=== PATIENT | female | born 1960 | race Caucasian/White ===

== ENCOUNTER → 2019-06-06 16:15 | Outpatient (CLI) | payer OTHER, SELFPAY ==
--- NOTE | 2019-06-06 16:48 | MRI_ITS ---
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 IV Contrast dosage and agent: None. 6 series. 139 images COMPARISON: None FINDINGS: BONE: No fracture or abnormal bone marrow signal. ACROMIOCLAVICULAR JOINT: There is no degenerative change. SUBACROMIAL-SUBDELTOID SPACE: A tiny volume of bursal fluid is present that extends anteriorly adjacent to the coracoid GLENOHUMERAL JOINT: Articular cartilage intact. No joint effusion. Trace edema within the anterior interval ROTATOR CUFF: There is some tearing to the superior aspect of the supraspinatus with fairly severe tendinosis to the supraspinatus. This does not appear to be a full-thickness tear. Insertional rim rent tearing is present peripherally within the supraspinatus with some additional undersurface incomplete thickness tearing to the lateral aspect of the supraspinatus tendon. The supraspinatus tendon is thickened and edematous. The supraspinatus and subscapularis are mildly atrophic. Fatty infiltration is present within the supraspinatus and the infraspinatus and to a lesser degree the teres minor LABRUM: Intact, limited evaluation on non-arthrographic exam. BICEPS TENDON: The long head biceps tendon is thickened and edematous as it courses over the joint into the bicipital groove. The long head of the biceps tendon is not identified within the bicipital groove. The intra-articular biceps tendon is normal. OTHER SOFT TISSUES: Unremarkable. MRI/Upper Ext Joint Only(Routine) IMPRESSION: Nonvisualization of the long head biceps tendon within the bicipital groove suggestive of complete tear of the long head biceps tendon. There is some thickened and edematous biceps tendon within the intra-articular portion of the joint, but none are outside of the joint. Tendinosis to the supraspinatus. Undersurface incomplete thickness rim rent tear to the supraspinatus. Tendinosis and incomplete thickness tearing of the subscapularis. at 0548 Reported and signed by: Krzysztof Barfield MD Electronically Signed: Krzysztof Barfield MD at 5:47 EDT Tel , Service support ,
--- NOTE | 2019-06-06 16:49 | MRI_ITS ---
HISTORY: Patient felt a pop on right arm while moving sheet pending. Technique: Sagittal and coronal T1-weighted images, coronal STIR, axial STIR, and axial T1-weighted images were obtained through most of the right humerus. The elbow is not imaged on the axial images. Findings: There is a complete tear to the long head of the biceps tendon. The first solid appearance to the tendon is perhaps 5 cm inferior to the top of the humeral head. The bicipital groove is empty with a small amount of fluid. No significant myositis is perceived. Marrow signal is normal. The humeral head is well-seated within the glenoid fossa. No hematoma is identified. No cellulitis. No adenopathy. MRI/Upper Ext/No Jt/ wo IMPRESSION: Long head biceps tendon complete tear with retraction of about 5 cm below the humeral head. at 0556 Reported and signed by: Krzysztof Barfield MD Electronically Signed: Krzysztof Barfield MD at 5:54 EDT Tel , Service support ,
== END ==
PROVIDERS: Referring Provider Family Medicine; Visit Provider Family Medicine
DX: S43.401A Unspecified sprain of right shoulder joint, initial encounter (principal); S46.211A Strain of muscle, fascia and tendon of other parts of biceps, right arm, initial encounter; X58.XXXA Exposure to other specified factors, initial encounter; Y93.9 Activity, unspecified; Y92.9 Unspecified place or not applicable; Y99.9 Unspecified external cause status
CPT/HCPCS: 73218; 73221

== ENCOUNTER 2019-07-07 13:03 | Emergency (ER) | payer OTHER, MEDICAID, SELFPAY ==
[2019-07-07 13:04] VITALS: BP 132/86; PULSE 90; RESP 14; TEMP 36.7; O2SAT 97; BMI 24.3
--- NOTE | 2019-07-07 13:29 | ED.VISSUMM ---
- ER Visit Summary Date of Service: 07/07/19 Chief Complaint: Left hand laceration History of Present Illness: The patient is a 59 F who presents with a left hand laceration. She was cutting watermelon and cut her hand with a knife. Last tetanus unknown. She cut it on the palm of her hand. Denies any other symptoms. This did occur at work. Physical Examination: Vital signs are reviewed. Left hand exam reveals a 3.75 cm laceration on the thenar eminence on the palm of the left hand. No bleeding at this time. No other symptoms. Test Results: None performed Emergency Department Course and Treatment: The patient's tetanus was updated. 7, 4?0 simple nylon sutures were placed after lidocaine was used to anesthetize the area. She will have these out in 7 days. Treatment Plan: [] Disposition: Discharge Impression: Left hand laceration, 3.5 cm Laceration repaired by ED physician This note was generated with [employer]etov[employer] dictation software. It may contain incorrect words, spelling, and punctuation that were not noted in review of the chart prior to signing ED Disposition - Plan for ED Patient: Referrals: Care Physician,No Primary [Primary Care Provider] -
--- NOTE | 2019-07-07 13:31 | ED.DEP ---
ED Disposition - Plan for ED Patient: Disposition: Home or Assisted Living Instructions: LACERATION, All Referrals: Care Physician,No Primary [Primary Care Provider] -
[2019-07-07] MEDS: Diphth,Pertuss(Acell),Tet Vac 0.5 ML Vial IM (13:34)
[2019-07-07 14:16] VITALS: PULSE 87; RESP 16; O2SAT 97
== END 2019-07-07 14:17 | disposition home or self-care (01) ==
LOC: ED 13:42
PROVIDERS: Emergency Provider Emergency Medicine
DX: S61.412A Laceration without foreign body of left hand, initial encounter (principal); W26.0XXA Contact with knife, initial encounter; Y93.G1 Activity, food preparation and clean up; Y92.9 Unspecified place or not applicable; Y99.9 Unspecified external cause status; Z23 Encounter for immunization; Z79.810 Long term (current) use of selective estrogen receptor modulators (SERMs); Z85.3 Personal history of malignant neoplasm of breast
CPT/HCPCS: 12002; 90471; 90715; 99283

== ENCOUNTER → 2019-09-06 08:24 | Outpatient (CLI) | payer OTHER, SELFPAY ==
[2019-09-06 08:17] VITALS: BMI 24.3
--- NOTE | 2019-09-06 08:25 | RAD_ITS ---
STUDY: X-RAY - RIGHT SHOULDER REASON FOR EXAM: Pain after a fall. TECHNIQUE: 4 view(s) of the shoulder. COMPARISON: None. FINDINGS: Normal glenohumeral articulation. Normal acromioclavicular joint. Normal acromion. Normal humeral head and visualized proximal humerus. The soft tissue structures are unremarkable. There are surgical clips at the lateral aspect of the thorax. Normal visualized pulmonary apex. RAD/Shoulder min 2 Views IMPRESSION: Normal x-ray examination of the right shoulder. Electronically Signed: Franklin Patel MD at 12:52 EST Tel , Service support ,
== END ==
PROVIDERS: Referring Provider Orthopaedic Surgery; Visit Provider Orthopaedic Surgery
DX: M25.511 Pain in right shoulder (principal)
CPT/HCPCS: 73030

== ENCOUNTER 2019-11-09 14:00 | Outpatient (RCR) | payer OTHER, MEDICAID, SELFPAY ==
[2019-09-06 08:17] VITALS: BMI 24.3
--- NOTE | 2019-10-05 16:10 | HP.PTEVAL ---
Patient's Visit Information SHARMILA MASON is a 59 year old F referred to Physical Therapy by Dr. Beatriz De Leon DO with a diagnosis of . Date of Evaluation: 10/05/19 Physical Therapist: Kayden Solis, PT, Cert MDT, OCS - Visit Plan Frequency: 3x /Week Duration: 6WEEKS Plan: PT INTERVENTIONS MODALTIES ESTM/US/CP , GRADED ROM /PROM/AAROM/AROM,MANUAL THERAPY MOBS G-H JOINT GR1-3,GRADED RTC/SCAPULAR STRENGTHENING - Subjective Findings: This 59 y/o female presents to physical therapy with right shoulder pain. 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 Patient went to [facility] and start PT didnt help. Patient was continue work with restrictions. Patient seen DR De Leon 3 weeks ago and finally got MRI showed long head biceps complete tear 5cm ,rim partial tear supraspinatous. Dr De Leon for pain injection . Recommended PT. If Pt fails may need surgery.Patient pain is global with pain desribed with sharp ,pop. Aggraveting factors any activities above 90 degrees ,self hyine ,[place] activities for ADL's and job demands. Pain affects sleeping. Patient has occassional parathesia/tingling. Patient pain affects QOL and function. SOCIAL: single. VOCATION: [employer] - Pain Right Shoulder Pain Intensity (Out of 10): 4 Pain Intensity Range: 10 - Objective POSTURE: mild foward posture. PALAPTION; tender AC ,long head bicep. NEURO: denies parathesia/tingling ,reflexes intact. AROM: supine flexion 110 degrees,abduction 90 degrees ,ER 60 degrees,IR S1-pain all planes. PROM: supine flexion 130 degrees,abdunction in scapation 110 degrees,ER 65 degrees. CAPSULAR RESTRICTION: mod tight all planes. SCAPULAR -HUMERAL : less < 1:1 ratio - Special Tests R Shoulder Supine Impingement Test - RC Tear: Positive R Shoulder Lift Off Test - Subscapular Tear: Negative R Shoulder Drop Sign - IS Test: Negative R Shoulder Empty Can - SS: Positive R Shoulder Belly Press - SupScap: Negative R Shoulder Neer - Impingement: Positive R Shoulder Thapa Anjum - Impingement: Positive R Shoulder Speeds Test - Labrum/Biceps: Positive R Shoulder Shrug Sign - OA/Adhesive Capsulitis: Positive - Goals Goal 1:: Patient to be Independant with HEP. Goal Time Frame: 4-6 Weeks Goal 2:: Decrease shoulder pain by 50% or> to improve function Goal Time Frame: 4-6 Weeks Goal 3:: Patient to increase AROM shoulder flexion/abduction 140 degrees,ER 80 degrees,IR L5 to improve function with ADL'S Goal Time Frame: 4-6 Weeks Goal 4:: Patient increase strength right RTC 4/5 ,deltoid 4-/5 to improve funcrion with ADL'S Goal Time Frame: 4-6 Weeks Goal 5:: Patient to improve quick dash by 10 points or> to improve QOL and susy demands. Goal Time Frame: 4-6 Weeks - Rehabilitation Potential Physical Therapy Diagnosis: This patient right shoulder pain MRI showed long head biceps tesr ,rim superior tear incomplete of suprspinatous with pain ,poor ROM ,decrease strength impairs activies abobe 90 degrees ,job demnads ,housework task Rehabilitation Potential: Good - Anticipated Interventions Patient/Client Instruction: Educate patient on: Condition, Plan of Care For the Purpose of:: To decrease pain, To increase ROM, To improve muscle performance and motor function, To improve ability to perform ADL's, To increase tolerance to activity/condition/position, To improve performance and independence with ADL's, To improve ability of physical actions for home/community/work/leisure, To improve health of tissue, To decrease soft tissue restriction, To increase flexibility/ROM, To improve ability to perform tasks related to life management Therapeutic Exercise to Include: Strength training, Postural training, Flexibilty training, Passive ROM, Active ROM, Scapular Strength/Stabilization Comment: RTC For the Purpose of:: To decrease pain, To increase ROM, To improve nutrient delivery to tissue, To increase oxygenation perfusion, To improve health of tissue, To decrease soft tissue restriction, To increase flexibility/ROM Manual Therapy Techniques to Include: Mobilization Comment: G-H GR 1-3 For the Purpose of:: To decrease pain, To decrease swelling/inflammation, To increase ROM, To improve nutrient delivery to tissue, To increase oxygenation perfusion, To improve health of tissue, To decrease soft tissue restriction TENS: Yes IF ES: Yes Cryotherapy (ice pack, ice massage): Yes Thermo therapy (hot pack): Yes Ultrasound (thermal/non thermal): Yes For the Purpose of:: To decrease pain, To increase ROM, To improve nutrient delivery to tissue, To increase oxygenation perfusion, To improve health of tissue, To decrease soft tissue restriction Thank you for the opportunity to evaluate your patient. For Medicare and Medicare HMO plans, please review the plan of care and approve it. It will need to be FAXED BACK to us at [phone] for Medicare purposes. For Medicare only, by signing this I certify the plan of care. Please let me know if there are questions or concerns regarding this plan of care. Physician Signature: Date:
--- NOTE | 2019-10-12 14:25 | HP.PTEVAL_ITS ---
Patient's Visit Information SHARMILA MASON is a 59 year old F referred to Physical Therapy by Dr. Beatriz De Leon, with a diagnosis of RIGHT SHLDER STRAIN OF MUSCLE TENDON LONG HEAD,STRAIN OF MUSCLE TENDON RTC. Date of Evaluation: 10/05/19 Physical Therapist: Kayden Solis, PT, Cert MDT, OCS - Visit Plan Frequency: 3x /Week Duration: 6WEEKS Plan: PT INTERVENTIONS MODALTIES ESTM/US/CP , GRADED ROM /PROM/AAROM/AROM,MANUAL THERAPY MOBS G-H JOINT GR1-3,GRADED RTC/SCAPULAR STRENGTHENING - Subjective Findings: This 59 y/o female presents to physical therapy with right shoulder pain. 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 Patient went to [facility] [facility] and start PT didnt help. Patient was continue work with restrictions. Patient seen DR De Leon 3 weeks ago and finally got MRI showed long head biceps complete tear 5cm ,rim partial tear supraspinatous. Dr De Leon for pain injection . Recommended PT. If Pt fails may need surgery.Patient pain is global with pain desribed with sharp ,pop. Aggraveting factors any activities above 90 degrees ,self hyine ,[place] activities for ADL's and job demands. Pain affects sleeping. Patient has occassional parathesia/tingling. Patient pain affects QOL and function. SOCIAL: single. VOCATION: [employer] - Pain Right Shoulder Pain Intensity (Out of 10): 4 Pain Intensity Range: 10 - Objective POSTURE: mild foward posture. PALAPTION; tender AC ,long head bicep. NEURO: denies parathesia/tingling ,reflexes intact. AROM: supine flexion 110 degrees,abduction 90 degrees ,ER 60 degrees,IR S1-pain all planes. PROM: supine flexion 130 degrees,abdunction in scapation 110 degrees,ER 65 degrees. CAPSULAR RESTRICTION: mod tight all planes. SCAPULAR -HUMERAL : less < 1:1 ratio - Special Tests R Shoulder Supine Impingement Test - RC Tear: Positive R Shoulder Lift Off Test - Subscapular Tear: Negative R Shoulder Drop Sign - IS Test: Negative R Shoulder Empty Can - SS: Positive R Shoulder Belly Press - SupScap: Negative R Shoulder Neer - Impingement: Positive R Shoulder Thapa Anjum - Impingement: Positive R Shoulder Speeds Test - Labrum/Biceps: Positive R Shoulder Shrug Sign - OA/Adhesive Capsulitis: Positive - Goals Goal 1:: Patient to be Independant with HEP. Goal Time Frame: 4-6 Weeks Goal 2:: Decrease shoulder pain by 50% or> to improve function Goal Time Frame: 4-6 Weeks Goal 3:: Patient to increase AROM shoulder flexion/abduction 140 degrees,ER 80 degrees,IR L5 to improve function with ADL'S Goal Time Frame: 4-6 Weeks Goal 4:: Patient increase strength right RTC 4/5 ,deltoid 4-/5 to improve funcrion with ADL'S Goal Time Frame: 4-6 Weeks Goal 5:: Patient to improve quick dash by 10 points or> to improve QOL and susy demands. Goal Time Frame: 4-6 Weeks - Rehabilitation Potential Physical Therapy Diagnosis: This patient right shoulder pain MRI showed long head biceps tesr ,rim superior tear incomplete of supraspinatous with pain ,poor ROM ,decrease strength impairs activies above 90 degrees ,job demnads ,housework task thus benifit from skilled PT Rehabilitation Potential: Good - Anticipated Interventions Patient/Client Instruction: Educate patient on: Condition, Plan of Care For the Purpose of:: To decrease pain, To increase ROM, To improve muscle performance and motor function, To improve ability to perform ADL's, To increase tolerance to activity/condition/position, To improve performance and independence with ADL's, To improve ability of physical actions for home/community/work/leisure, To improve health of tissue, To decrease soft tissue restriction, To increase flexibility/ROM, To improve ability to perform tasks related to life management Therapeutic Exercise to Include: Strength training, Postural training, Flexibilty training, Passive ROM, Active ROM, Scapular Strength/Stabilization Comment: RTC For the Purpose of:: To decrease pain, To increase ROM, To improve nutrient delivery to tissue, To increase oxygenation perfusion, To improve health of tissue, To decrease soft tissue restriction, To increase flexibility/ROM Manual Therapy Techniques to Include: Mobilization Comment: G-H GR 1-3 For the Purpose of:: To decrease pain, To decrease swelling/inflammation, To increase ROM, To improve nutrient delivery to tissue, To increase oxygenation perfusion, To improve health of tissue, To decrease soft tissue restriction TENS: Yes IF ES: Yes Cryotherapy (ice pack, ice massage): Yes Thermo therapy (hot pack): Yes Ultrasound (thermal/non thermal): Yes For the Purpose of:: To decrease pain, To increase ROM, To improve nutrient delivery to tissue, To increase oxygenation perfusion, To improve health of tissue, To decrease soft tissue restriction Thank you for the opportunity to evaluate your patient. For Medicare and Medicare HMO plans, please review the plan of care and approve it. It will need to be FAXED BACK to us at [phone] for Medicare purposes. For Medicare only, by signing this I certify the plan of care. Please let me know if there are questions or concerns regarding this plan of care. Physician Signature: Date:
--- NOTE | 2019-12-24 13:54 | HP.PTDCNRP_ITS ---
SHARMILA MASON was seen in my office for initial evaluation on 10/05/19. The following Plan of Care was established for this patient: Initial Frequency: 3x /Week Initial Duration: 6WEEKS Patient/Client Instruction: Educate patient on: Condition, Plan of Care For the Purpose of:: To decrease pain, To increase ROM, To improve muscle performance and motor function, To improve ability to perform ADL's, To increase tolerance to activity/condition/position, To improve performance and i ndependence with ADL's, To improve ability of physical actions for home/community/work/leisure, To improve health of tissue, To decrease soft tissue restriction, To increase flexibility/ROM, To improve ability to perform tasks related to life management Therapeutic Exercise to Include: Strength training, Postural training, Flexibilty training, Passive ROM, Active ROM, Scapular Strength/Stabilization For the Purpose of:: To decrease pain, To increase ROM, To improve nutrient delivery to tissue, To increase oxygenation perfusion, To improve health of tissue, To decrease soft tissue restriction, To increase flexibility/ROM Manual Therapy Techniques to Include: Mobilization Comment: G-H GR 1-3 For the Purpose of:: To decrease pain, To decrease swelling/inflammation, To increase ROM, To improve nutrient delivery to tissue, To increase oxygenation perfusion, To improve health of tissue, To decrease soft tissue restriction TENS: Yes IF ES: Yes Cryotherapy (ice pack, ice massage): Yes Thermo therapy (hot pack): Yes Ultrasound (thermal/non thermal): Yes For the Purpose of:: To decrease pain, To increase ROM, To improve nutrient delivery to tissue, To increase oxygenation perfusion, To improve health of tissue, To decrease soft tissue restriction This patient was last seen in our office . Pertinent comments regarding their Physical therapy will appear below: Patient seen for PT for ROM/STENGTH right shoulder but MRI sowed rim tear supraspinatous,long head tear.,thus is d/c At this point I will be discontinuing this patient from physical therapy. I would be happy to see this patient again in the future if found appropriate by the physician. Thank you! Kayden Solis, PT, Cert MDT, OCS
== END 2019-11-09 19:00 | disposition home or self-care (01) ==
LOC: PT 14:00
PROVIDERS: Referring Provider Orthopaedic Surgery; Visit Provider Orthopaedic Surgery
DX: S46.111D Strain of muscle, fascia and tendon of long head of biceps, right arm, subsequent encounter (principal); S46.011D Strain of muscle(s) and tendon(s) of the rotator cuff of right shoulder, subsequent encounter; S43.401D Unspecified sprain of right shoulder joint, subsequent encounter; S46.211D Strain of muscle, fascia and tendon of other parts of biceps, right arm, subsequent encounter
CPT/HCPCS: 97014; 97110; 97161; G0283

== ENCOUNTER 2020-02-25 15:16 | Outpatient (RCR) | payer SELFPAY ==
[2019-10-11 13:02] VITALS: BMI 24.3
[2020-02-25 15:10] VITALS: BMI 24.3
== END 2020-02-25 15:17 | disposition home or self-care (01) ==
LOC: PT 15:16
PROVIDERS: Referring Provider Orthopaedic Surgery; Visit Provider Orthopaedic Surgery
DX: S46.111D Strain of muscle, fascia and tendon of long head of biceps, right arm, subsequent encounter (principal); S46.011D Strain of muscle(s) and tendon(s) of the rotator cuff of right shoulder, subsequent encounter; S43.401D Unspecified sprain of right shoulder joint, subsequent encounter; S46.211D Strain of muscle, fascia and tendon of other parts of biceps, right arm, subsequent encounter

== ENCOUNTER 2020-04-22 15:30 | Outpatient (RCR) | payer OTHER, SELFPAY ==
[2020-02-05 14:05] VITALS: BMI 24.3
--- NOTE | 2020-02-28 17:16 | HP.PTEVAL ---
Patient's Visit Information SHARMILA MASON is a 59 year old F referred to Physical Therapy by MERON Garcia with a diagnosis of STRAIN OF MUSCLE/FASCIA/TENDON OF LONG HEAD ,RIGHT ARM,SRAIN RTC,SPRAIN. Date of Evaluation: 02/28/20 Physical Therapist: Kayden Solis, PT, Cert MDT, OCS - Visit Plan Frequency: 3x /Week Duration: 6 Weeks Plan: PT INTERVENTIONS MANUAL THERAPY G-H ,PROM/AAROM,STRENGTHENING RTC/SCAPULAR ,POSTURAL EX'S,MODLATIES - Subjective This 59 y/o female presents to physical therapys with right shoulder pain. Patient injuried right shoulder at working lifting sheet pain and heard pop Sep. Patient went to [employer] [facility] and start PT didn't help. Patient cont to work with work nrestrictions. Patient eventually seen DR De Leon in [facility] had MRI showed long head biceps complete tear, RIM partial tear of supraspinatous. Did injection went to PT had to stop due to COVID. Then return to recommeneded on 02.25.20 continue PT did injections which helped. Patient MD did recommended surgery. Patient conts with pain ,popping occassional sharp pain ,but recent cortizone is some better. Aggraveting factors [place] activities lifting above 90 degrees ,reaching behind back. Pateint symptoms affects sleeping. Patient occassionally has parathesia/tingling fingers and burning, Patient const be on lightduty. Patient condition affects ability with housework tasks ,ADL's and housework tasks.Patient condition affects QOL and RTW. SOCIAL: single. 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 NEURO: c/o occassional parathesia/tingling,reflexes intact. PALAPTION: tender long head biceps,AC. AROM SHOULDER: flexion 110 degrees ,abduction 110 degrees,ER 80 degrees,IR L1. PROM SHOULDER: flexion 130 degrees,abduction 120 degrees,ER 90. CAPSULAR RESTRICTION: mod tight. MMT: RTC 4-/5 except 3+/5 supraspinatous, deltoid 3+/5 - Special Tests R Shoulder External Rotation Lag Test - RC Tear: Positive R Shoulder Supine Impingement Test - RC Tear: Positive R Shoulder Lift Off Test - Subscapular Tear: Positive R Shoulder Drop Sign - IS Test: Negative R Shoulder Empty Can - SS: Positive R Shoulder Belly Press - SupScap: Negative R Shoulder Neer - Impingement: Positive R Shoulder Thapa Anjum - Impingement: Positive R Shoulder Shrug Sign - OA/Adhesive Capsulitis: Positive - Goals Goal 1:: Independant with HEP. Goal Time Frame: 4-6 Weeks Goal 2:: Decrease shoulder pain by 50% or > to improve function with job demands. Goal Time Frame: 4-6 Weeks Goal 3:: Patient to improve AROM shoulder flexion/degrees 140 degrees to improve ADLS and job demnads for [place] activities Goal Time Frame: 4-6 Weeks Goal 4:: Patient to improve stength shoulder strength by 1/2 grade to improve function with ADL'S and job demands. Goal Time Frame: 4-6 Weeks Goal 5:: Patient to improve quick dash by 5 points or > to improve QOL an jiob demands. Goal Time Frame: 4-6 Weeks - Rehabilitation Potential Physical Therapy Diagnosis: This patient has shoulder pain with long head tear,suprspiantous tear with pain ,decrease ROM ,strength,capsular restriction imapirs ADLS' and housework tasks and job demands with [place] activities. Rehabilitation Potential: Good - Anticipated Interventions Patient/Client Instruction: Educate patient on: Condition, Plan of Care For the Purpose of:: To decrease pain, To increase ROM, To improve muscle performance and motor function, To improve ability to perform ADL's, To increase tolerance to activity/condition/position, To improve performance and independence with ADL's, To improve ability of physical actions for home/community/work/leisure, To improve health of tissue, To decrease soft tissue restriction, To increase flexibility/ROM, To assume or resume ADL's, To improve ability to perform tasks related to life management Therapeutic Exercise to Include: Postural training, Flexibilty training, Passive ROM, Active ROM, Scapular Strength/Stabilization Comment: RTC For the Purpose of:: To decrease pain, To increase ROM, To improve muscle performance and motor function, To improve ability to perform ADL's, To increase tolerance to activity/condition/position, To improve ability of physical actions for home/community/work/leisure, To improve health of tissue, To decrease soft tissue restriction, To increase flexibility/ROM, To reduce risk of recurrence, To improve ability to perform tasks related to life management Manual Therapy Techniques to Include: Mobilization Comment: G-H For the Purpose of:: To decrease pain, To increase ROM, To improve muscle performance and motor function, To improve ability to perform ADL's, To increase tolerance to activity/condition/position, To improve performance and independence with ADL's, To improve health of tissue, To decrease soft tissue restriction, To increase flexibility/ROM TENS: Yes IF ES: Yes Cryotherapy (ice pack, ice massage): Yes Thermo therapy (hot pack): Yes Ultrasound (thermal/non thermal): Yes For the Purpose of:: To decrease pain, To decrease swelling/inflammation, To improve nutrient delivery to tissue, To increase oxygenation perfusion, To improve health of tissue, To decrease soft tissue restriction Thank you for the opportunity to evaluate your patient. For Medicare and Medicare HMO plans, please review the plan of care and approve it. It will need to be FAXED BACK to us at [phone] for Medicare purposes. For Medicare only, by signing this I certify the plan of care. Please let me know if there are questions or concerns regarding this plan of care. Physician Signature: Date:
--- NOTE | 2020-04-22 15:49 | HP.PTDCSUM_ITS ---
It has been my pleasure to treat SHARMILA MASON referred by MERON Garcia, with the diagnosis of STRAIN OF MUSCLE/FASCIA/TENDON OF LONG HEAD ,RIGHT ARM,SRAIN RTC,SPRAIN for a total of 18 visit(s). Discharge Date: 04/22/20 Please see the following information for a summary of their discharge status. Subjective: Doing okay ,able to worl but conts to have pain OH activies Right Shoulder Pain Intensity (Out of 10): 2 % Improvement: 70 Objective/Function: POSTURE: mild foward posture,round shoulders. NEURO: intact. AROM: shoulder flexion 130 degrees,abduction 120 degrees,ER 90 ,IR S1- pain at end range. MMT: infraspinatous 4-/5,subscapularis 4/5,supraspaintous 4- /5 ,deltoid 3+/5 -pain Goal 1:: Independant with HEP. Goal Progress: Goal Met Goal 2:: Decrease shoulder pain by 50% or > to improve function with job demands. Goal Progress: Goal Met Goal 3:: Patient to improve AROM shoulder flexion/degrees 140 degrees to improve ADLS and job demnads for OH activities Goal Progress: Progressing Goal 4:: Patient to improve stength shoulder strength by 1/2 grade to improve function with ADL'S and job demands. Goal Progress: Progressing Goal 5:: Patient to improve quick dash by 5 points or > to improve QOL an jiob demands. Goal Progress: Progressing Plan: D/C Discharge Comments: RTD and HEP If there are questions or concerns regarding this patient's physical therapy, please feel free to call me at [phone]. Thank you for the referral of this patient. Sincerely, Kayden Solis, PT, Cert MDT, OCS
== END 2020-04-22 19:00 | disposition home or self-care (01) ==
LOC: PT 15:30
PROVIDERS: Referring Provider Physician Assistant; Visit Provider Physician Assistant
DX: S46.111D Strain of muscle, fascia and tendon of long head of biceps, right arm, subsequent encounter (principal); S46.011D Strain of muscle(s) and tendon(s) of the rotator cuff of right shoulder, subsequent encounter; S43.401D Unspecified sprain of right shoulder joint, subsequent encounter; S46.211D Strain of muscle, fascia and tendon of other parts of biceps, right arm, subsequent encounter
CPT/HCPCS: 97110; 97162

== ENCOUNTER → 2020-11-11 13:12 | Outpatient (CLI) | payer OTHER, MEDICAID, SELFPAY ==
[2020-05-01 08:48] VITALS: BMI 24.3
--- NOTE | 2020-11-11 13:16 | MRI_ITS ---
STUDY: MRI RIGHT SHOULDER REASON FOR EXAM: Right shoulder pain, known rotator cuff tear. TECHNIQUE: Standardized fat and water weighted pulse sequences were obtained in all 3 orthogonal planes. COMPARISON: Radiographs 09/06/2019, MRI images 06/06/2019. FINDINGS: There is supraspinatus tendinosis and a full-thickness tear of the distal anterior supraspinatus tendon (T2 coronal images 13, 14) measuring approximately 1.8 x 1.2 cm (length x width). Normal infraspinatus tendon. There is a partial tear with attenuation of the subscapularis tendon (T2 axial images 11-13), similar to the prior study. Normal teres minor tendon. There is mild atrophy with mild partial fat replacement of the supraspinatus and infraspinatus muscles (T2 sagittal images 15-18). There is atrophy with partial fat replacement of the subscapularis muscle (T2 axial image 12). Normal teres minor muscle. Normal glenohumeral articulation. There is a small cyst in the superior glenoid. Normal humeral head and visualized proximal humerus. There is a tear with nonvisualization of the intracapsular long biceps tendon as on the prior study. Normal labrum. Normal capsulo- ligamentous complex. Normal acromioclavicular articulation. There is a Type II morphology (curved), with lateral downsloping of the acromion. There is a very small volume of subacromial-subdeltoid bursal fluid. There is thickening of the coracoacromial ligament (T2 sagittal image 12). Normal deltoid muscle. Normal trapezius muscle. MRI/Upper Ext Joint Only(Routine) IMPRESSION: Full-thickness tear and tendinosis of the supraspinatus tendon. Partial tear with attenuation of the subscapularis tendon. Atrophy of the supraspinatus, infraspinatus and subscapularis muscles. 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 Thickening of the coracoacromial ligament. Very small volume of subacromial-subdeltoid bursal fluid. Electronically Signed: Franklin Patel MD at 14:39 EDT Tel , Service support ,
== END ==
PROVIDERS: Referring Provider Orthopaedic Surgery; Visit Provider Orthopaedic Surgery
DX: M75.01 Adhesive capsulitis of right shoulder (principal); S43.401A Unspecified sprain of right shoulder joint, initial encounter; S46.011A Strain of muscle(s) and tendon(s) of the rotator cuff of right shoulder, initial encounter; S46.111A Strain of muscle, fascia and tendon of long head of biceps, right arm, initial encounter; S46.211A Strain of muscle, fascia and tendon of other parts of biceps, right arm, initial encounter; X58.XXXA Exposure to other specified factors, initial encounter; Y93.9 Activity, unspecified; Y92.9 Unspecified place or not applicable; Y99.9 Unspecified external cause status
CPT/HCPCS: 73221

== ENCOUNTER 2020-11-19 13:30 | Outpatient (RCR) | payer OTHER, SELFPAY ==
[2020-05-01 08:48] VITALS: BMI 24.3
--- NOTE | 2020-10-07 16:11 | HP.PTEVAL_ITS ---
Patient's Visit Information SHARMILA MASON is a 60 year old F referred to Physical Therapy by Dr. Beatriz De Leon DO with a diagnosis of R adhesive capsulitis. Date of Evaluation: 10/07/20 Physical Therapist: Mikel Miranda, DPT, OCS, CSCS - Visit Plan Frequency: 3x /Week Duration: 4-6 Weeks Plan: 3x/week for 4-6 weeks for: 1. AAROM/PROM AROM flexiona and abduction R shoulder. 2. manual mobs to R shoulder. 3. strength R RC and scap. 4. TENS with ice if needed. - Subjective R shoulder injury. Had therapy prior. was transferring trays and felt pop in shoulder in September 2018. Had cortisone shot not too long ago(one month) and has been pretty good feeling much better.. 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 R arm still has crunches and gives sometimes. did not approve fix of tears at the time but recently has and needs 2nd MRI first. Needs therapy in the meantime. Wants to get loosened up and improve ROM. ROM is big problem. Pain is up to 6/10 with stretching or overdoing it. shaving armpit is hard. Can tuc shirt in with other hand. Putting hair up is a pain. Sleep is OK. Works at [employer] and is light duty for the last two years as she is able to make things in front of her but not overhead. [place] dn shower and dressing are I but painful. Hobbies: cannot bowl or play softball because of this. Is R handed. Exercises for shoulder,...pulling on band Yellow and blue. - Pain R shoulder Pain Intensity (Out of 10): 0 Pain Intensity Range: 0, 6 - Objective Pt walks I adn trasnfers I. R arm does not swing with gait. Cervical AROM WFL adn without pain. Posture is forward head and gaurded R UE. reflexes bi and tri are 2/3 B. Sensation UE WNL to gross light touch. AROM L UE wNL adn without pain. AROM R UE: flexion 105, abd 90, both limited by pain. ER 80 adn IR L4 pain at end range. albow and wrist aROM WFL. PROM: flexion 135, abduction 120, rotation 85 ext rotation adn 80 IR at 70 abduction. Strenfgth L shoulder 4/5. R shoulder rotation 4- pain ext rotation, 4 pain IR, flexiona dn abduction 3 painful in available ROM. elbow 4 biceps adn triceps with some pain with flexion resisted. Tender to touch supraspinatus adn biceps tendon. + R drop arm test. - ext rotation lag test.- sulcus, + HK and neer. - Goals Goal 1:: 145 AROM flexiona dn abduction to improve function without pain Goal Time Frame: 4-6 Weeks Goal 2:: Pain 0-2/10 at worst and manageable Goal Time Frame: 4-6 Weeks Goal 3:: qucikdash score < 15 Goal Time Frame: 4-6 Weeks Goal 4:: I approp HEP to minimize future problems Goal Time Frame: 4-6 Weeks - Rehabilitation Potential Physical Therapy Diagnosis: R shoulder pain/tear. Rehabilitation Potential: Questionable - Anticipated Interventions Patient/Client Instruction: Educate patient on: Condition, Plan of Care For the Purpose of:: To decrease pain, To increase ROM, To improve muscle performance and motor function, To improve ability of physical actions for home/community/work/leisure Therapeutic Exercise to Include: Strength training, Postural training, Flexibilty training, Passive ROM, Active ROM, Scapular Strength/Stabilization For the Purpose of:: To decrease pain, To increase ROM, To improve muscle performance and motor function, To increase tolerance to activity/condition/position, To improve ability of physical actions for home/community/work/leisure Manual Therapy Techniques to Include: Mobilization, Passive ROM, Soft tissue mobilization For the Purpose of:: To decrease pain, To increase ROM TENS: Yes Cryotherapy (ice pack, ice massage): Yes Thermo therapy (hot pack): Yes For the Purpose of:: To decrease pain, To increase ROM Thank you for the opportunity to evaluate your patient. For Medicare and Medicare HMO plans, please review the plan of care and approve it. It will need to be FAXED BACK to us at [phone] for Medicare purposes. For Medicare only, by signing this I certify the plan of care. Please let me know if there are questions or concerns regarding this plan of care. Physician Signature: Da te:
--- NOTE | 2020-11-12 16:05 | HP.PTREVAL_ITS ---
Dr. Beatriz De Leon, DO, It has been my pleasure to treat SHARMILA MASON over the last 12 visits for R adhesive capsulitis. Please see the progress note below for an update on the physical therapy plan of care! Subjective: Getting better. Much better ROM. Less pain. Pain up to 3/10 on a bad day. Many days where it does not hurt. Sleep is OK for the most part. Activities at home are mostly normal except for vaccuming. Still has to avoid lifting things out of oven at work. 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 Will schedule with doctor. Wants to see doctor but would rather keep going with PT if iti is an option vs have surgery. Using Green adn yellow TB at home 2x10 2x/day Objective/Function: 150 flexion with painful arc, 140 abduction R shoulder, 85 ext rotation, psis IR and 65 degrees at 80 abduction. IR still a little tight but over all ROM improving. Strength is 3 in flexiona nd abduction with a posi tive drop arm test. ext rotation 4 adn IR 4 with slight ext rotation pain. Pt moving better adn can get hand behind head but hard time lowering it functionally and lifting any weight very limtied and careful. Recommended pt back to doctor for recheck of recent MRI and options. She molly corona. Plan Plan: Pt to schedule with doctor's office for recheck adn continue with lst two weeks of PT in the meantime for IR and abduction ROM and elevated strengthening of RC and scap and progression of HEP. Pt to call if therapy not needed or recommended to cotninue by doctor. Goals Goal 1:: 145 AROM flexiona dn abduction to improve function without pain Goal Time Frame: 4-6 Weeks Goal Progress: Progressing Goal 2:: Pain 0-2/10 at worst and manageable Goal Time Frame: 4-6 Weeks Goal Progress: Progressing Goal 3:: qucikdash score < 15 Goal Time Frame: 4-6 Weeks Goal Progress: Progressing Goal 4:: I approp HEP to minimize future problems Goal Time Frame: 4-6 Weeks Goal Progress: Goal Met Goal 5:: Lower arm from OH without hesitation Goal Time Frame: 2-4 Weeks Goal Progress: NEW GOAL Anticipated Interventions Patient/Client Instruction: Educate patient on: Condition, Plan of Care For the Purpose of:: To decrease pain, To increase ROM, To improve muscle performance and motor function, To improve ability of physical actions for home/community/work/leisure Therapeutic Exercise to Include: Strength training, Postural training, Flexibilty training, Passive ROM, Active ROM, Scapular Strength/Stabilization For the Purpose of:: To decrease pain, To increase ROM, To improve muscle performance and motor function, To increase tolerance to activity/c ondition/position, To improve ability of physical actions for home/community/work/leisure Manual Therapy Techniques to Include: Mobilization, Passive ROM, Soft tissue mobilization For the Purpose of:: To decrease pain, To increase ROM TENS: Yes Cryotherapy (ice pack, ice massage): Yes Thermo therapy (hot pack): Yes For the Purpose of:: To decrease pain, To increase ROM Please do not hesitate to contact me at [phone] by phone or Fax: if you have questions or concerns regarding this new plan of care! Sincerely, Mikel Miranda, DPT, OCS, CSCS
== END 2020-11-19 19:00 | disposition home or self-care (01) ==
LOC: PT 13:30
PROVIDERS: Referring Provider Orthopaedic Surgery; Visit Provider Orthopaedic Surgery
DX: M75.01 Adhesive capsulitis of right shoulder (principal)
CPT/HCPCS: 97014; 97110; 97140; 97161; 97530; G0283

== ENCOUNTER 2020-12-10 10:32 | Day surgery (SDC) | payer OTHER, SELFPAY ==
[2020-05-01 08:48] VITALS: BMI 24.3
--- NOTE | 2020-12-09 13:26 | EKG12_ITS ---
Test Reason : PRE OP Blood Pressure : / mmHG Vent. Rate : 094 BPM Atrial Rate : 094 BPM P-R Int : 148 ms QRS Dur : 088 ms QT Int : 358 ms P-R-T Axes : 062 069 055 degrees QTc Int : 447 ms Normal sinus rhythm Septal infarct , age undetermined Abnormal ECG Confirmed by AZUL GUILLAUME, DIANE ([id number]), editorial specialist ORLANDO SOLO ([id number]) on 12/10/2020 11:30:31 AM Referred By: Beatriz De Leon Confirmed By:DIANE LIANG MD
[2020-12-09 14:17] LABS: Hematocrit 38.3 % (37-47); Hemoglobin 12.6 g/dL (12.0-15.0); Mean Corp Hgb Conc 32.9 g/dL (32-36); Mean Corpuscular Hgb 30.4 pg (27.0-32.0); Mean Corpuscular Volume 92.3 fL (81-99); Mean Platelet Vol. 10.5 fl (6.2-12.0); Platelet Count 322 K/mm3 (150-450); RBC Distribution Width CV 14.6 % (11.6-14.6); RBC Distribution Width SD 49.3 fl (35.1-43.9); Red Blood Count 4.15 M/mm3 (4.2-5.4); White Blood Count 11.4 K/mm3 (4.4-11.0)
--- NOTE | 2020-12-10 06:00 | HP_ITS ---
I have re-examined the patient. There are no clinical changes since date of exam. Intake Intake Visit Reasons: RIGHT SHOULDER Allergies No Known Allergies Allergy (Verified 09/04/20 12:56) [facility] Medical History Cancer (Acute) Shoulder pain (Acute) Surgical History History of mastectomy (Acute) Social History (Updated 11/20/20 @ 16:[address] Beatriz De Leon DO) Smoking Status: Current every day smoker HPI RIGHT SHOULDER: Details: Parts of this documentation were recorded by a scribe, this documentation accurately reflects the service provided and the decisions made by me, Dr. Beatriz De Leon, 11/20/20 [id number]. SHARMILA MASON is a 60 year old F here today for [facility] F/U on right shoulder after having MRI of the shoulder. She continues to have pain in her shoulder with overuse or overreaching her right arm. Does feel that her ROM has improved with PT but extreme pain and weakness in lowering arm and doing adls. ROS Musc Reports joint pain, Reports limited joint movement, Reports radiating pain into limb Skin/Breast Reports system reviewed and no additional complaints, except as docu Neuro Yes system reviewed and no additional complaints, except as docu Ortho Exam Right Shoulder Testing: Positive Hawkin's, Neer's, Drop Arm, PROM-External Rotation at side 0- 60, PROM-External Rotation at 90 0-60 and PROM-Forward Elevation 0-180; negative AROM-Forward Elevation 0-180, AROM-External Rotation at 90 0-60 or AROM-External Rotation at side 0-60 SHOULDER: increased rom er/flexn-130, abduxn 120 Assessment & Plan Problems 1. Strain of muscle(s) and tendon(s) of the rotator cuff of right shoulder, initial encounter S46.011A 2. Strain of muscle, fascia and tendon of long head of biceps, right arm, initial encounter S46.111A Plan Personally reviewed patients MRI of the right shoulder patient educated that she has a full thickness RTC tear of the right shoulder, along with a biceps tear. She has failed the conservative treatment of PT and injections so the next treatment option is a RTC repair. Patient educated on the surgical procedure. Reviewed the pre-operative plans with the patient. Risks and benefits of the procedure were fully explained, including but not limited to infection, neurovascular injury, continued pain, arthritis, stiffness, need for further surgery, re-injury, DVT, PE, general risks of anesthesia, and loss of limb or life. The patient understands all the risks and does wish to proceed with written consent for right shoulder arthroscopy RTC repair, subacromial decompression, acromioplasty, surgery as indicated. We will make sure the RTC tear has been approved and the surgery has been approved. Follow up 2 weeks post op or sooner if pain, swelling, numbness or associated symptoms, or concerns develop. All questions answered. Patient in agreement of plan. Coding Level of Care Code Off vis,est,level 4 Diagnoses Strain of muscle(s) and tendon(s) of the rotator cuff of right shoulder, initial encounter S46.011A Strain of muscle, fascia and tendon of long head of biceps, right arm, initial encounter S46.111A COVID (Procedure Consent) Procedure Criteria Procedure Criteria: Yes Elective The surgeon/proceduralist and patient have discussed in detail the risk of exposure to and/or potential harm posed by the COVID-19 virus with having a surgery/procedure at this time versus the risk of? delaying the surgery/procedure. It is not possible to know either the risk of delaying the surgery or procedure or chance of getting an infection with perfect accuracy, but a joint decision was made between the patient and the surgeon/proceduralist ?to proceed at this time with the scheduled surgery/procedure as indicated on the consent form.
[2020-12-10 11:07] VITALS: BP 125/62; PULSE 83; RESP 16; TEMP 36.8; O2SAT 97; BMI 25.6
[2020-12-10] MEDS: Lactated Ringers 1,000 ML 100 ML IV ×2 (11:09→14:00)
[2020-12-10] MEDS: Cefazolin 2 GM in 0.9% Normal Saline 100 ML IV (11:57)
[2020-12-10] MEDS: Epinephrine (1 mg/ml) 1 MG/ML VIAL (12:56)
[2020-12-10] MEDS: Mupirocin Ointment 22gm Tube 1 APPLIC (12:57)
--- NOTE | 2020-12-10 14:15 | DCINST_ITS ---
Discharge Diet: No Restrictions - May remove dressings in 4 days and apply Band- Aids to incision sites, may remove sling to do pendulum exercises only, may get incision wet in shower after 4 days, follow-up in 2 weeks or sooner if other issues arise Discharge Activity: May Not Drive May shower in (days): 1 Ice area for (Minutes): 20 - Every hour while awake. Weight Bearing Status: Weight bearing as tolerated Keep extremity elevated above heart level: Operative Extremity Call your doctor if your incision/area has: Continuous Slow Oozing, Sudden Increased Bleeding, Increased Pain/ Swelling, Increased Redness, Foul Smelling Discharge Call your doctor if you observe: Fever of 101 or Higher, Coldness, Increased Pain, Numbness or Tingling, Change in Color, Calf discomfort Allergies/Adverse Reactions: Allergies No Known Allergies Allergy (Verified 12/09/20 08:15) Medications to take at Discharge Tamoxifen [Nolvadex] 20 mg PO DAILY 08/01/17 ibuprofen 200 mg tablet 200 mg PO Q6H PRN 07/16/19 cholecalciferol (vitamin D3) 1,250 mcg (50,000 unit) capsule 1,250 mcg PO DAILY 02/05/20 magnesium 250 mg tablet 250 mg PO DAILY 02/05/20 nortriptyline 25 mg capsule 25 mg PO QHS 02/05/20 potassium gluconate 550 mg (90 mg) tablet 550 mg PO DAILY 02/05/20 Cephalexin [Keflex] 500 mg PO Q12 12/09/20 Ondansetron [Zofran] 8 mg PO Q8H PRN PRN #20 tab 12/10/20 Oxycodone HCl/Acetaminophen [Percocet 5/325] 1 - 2 tablet PO Q6H PRN PRN 5 Days #28 tablet 12/10/20 Zolpidem Tartrate [Ambien (Generic)] 5 mg PO QHS PRN PRN #14 tab 12/10/20 The following prescriptions were given: Zolpidem Tartrate [Ambien (Generic)] 5 mg PO QHS PRN PRN #14 tab PRN Reason: Insomnia Transmission Status: Received by [facility] Oxycodone HCl/Acetaminophen [Percocet 5/325] 1 - 2 tablet PO Q6H PRN PRN 5 Days #28 tablet PRN Reason: Pain Transmission Status: Received by [facility] Ondansetron [Zofran] 8 mg PO Q8H PRN PRN #20 tab PRN Reason: Nausea Transmission Status: Received by [facility] Primary Care Physician: [facility] Alesha Howe [Primary Care Provider] - Test Results: Test results from this visit will be discussed in further detail at your follow- up appointment, if applicable. Please Follow Up With: Beatriz De Leon, DO - [phone]
--- NOTE | 2020-12-10 14:16 | PCM.OPRPT ---
Report of Operation Date of Procedure: 12/10/20 Pre-Operative Diagnosis: right shoulder rotator cuff tear Post-Operative Diagnosis: same Surgery/Procedure Performed:: right shoulder subscap, supraspinatus repair, sad/acromioplasty senior gis analyst: Sean Long Type of Anesthesia:: General/Regional Anesthesiologist: Ariel Valera Estimated Blood Loss (mL): min Fluids Replaced: 900cc lr Description of Procedure: Preop note Patient is 60-year-old female who sustained a work injury is had continued pain and inability to raise arm overhead and weakness. MRI confirms subscap supraspinatus tear as well as impingement syndrome. Risk benefits and alternatives surgery discussed with patient. Risk include but not limited to blood loss, blood clot, infection, neurovascular, failure procedure, loss of life and loss of limb. Patient is aware like proceed with right shoulder arthroscopy repair as indicated Postoperative operative note Patient seen examined preop holding area. Right shoulder was marked. Patient brought to the operating room and placed supine on the operating table. Signed, anesthesia, antibiotics were administered. The right arm was prepped and draped usual sterile technique after beachchair positioning was maintained we did recheck her blood pressure skilled nursing through the beachchair positioning which was stable throughout. All bony promises well-padded SCDs placed on bilateral lower extremity. We marked out our incisions for portal placement the right with timeout was performed we then insufflated the glenohumeral joint for the posterior aspect after timeout was performed. We had good return. Then created posterior portal with 11 blade. We then began our diagnostic arthroscopy the glenohumeral joint was intact. The subscap was torn as well as a nba of bone that was torn off of the the lesser tuberosity. We gently debrided back the lesser tuberosity at the insertion port of the subscapularis and placed the cannula anterior after creating anterior portal under direct visualization. We then placed 3 luggage tag stitches in the body of the subscap after doing a release and then were able to bring that over to a swivel lock in standard technique. We then noted the there is a anterior full-thickness supraspinatus tear. The moved to the subacromial space. We performed a subacromial decompression and acromioplasty we had to do the acromioplasty and able to have better visualization in order to place our anchors. We then placed 5 5 bio composite anchor after preparing the footprint for the supra spinatus repair. We then were able to place suture tape at the U-shaped at the posterior rim of the U-shaped and this brought this as well as the second suture tied over to the lateral swivel lock we had great footprint coverage at that point. The shoulder was irrigated with copious sterile saline incision was closed with interrupted 4 nylon stitches sterile dressings were applied. Patient taught procedure well no complication transfer recovery room in stable condition Postoperative note Nonweightbearing right upper strain Follow-up in 2 weeks Pharmacy has prescriptions of Pictures in 2 weeks Call with increased pain numbness tingling further issues arise Dragon disclaimer this note was generated with appsplit dictation software. It may contain incorrect words, spelling, and punctuation that were not noted in checking the note before signing.
[2020-12-10 14:18] VITALS: BP 115/62; BP 125/62; PULSE 88; RESP 16; TEMP 36.1; O2SAT 94
[2020-12-10 14:30] VITALS: BP 122/72; BP 125/62; PULSE 80; RESP 16; O2SAT 94
[2020-12-10 14:45] VITALS: BP 116/64; BP 125/62; PULSE 74; RESP 16; O2SAT 95
[2020-12-10 15:00] VITALS: BP 114/62; BP 125/62; PULSE 73; RESP 16; TEMP 36; O2SAT 93
[2020-12-10 16:20] VITALS: BP 116/66; BP 125/62; PULSE 72; RESP 16; TEMP 36.1; O2SAT 95
== END 2020-12-10 16:23 | disposition home or self-care (01) ==
LOC: SDC 10:32 → AC 10:33
PROVIDERS: Anesthesiology; Referring Provider Orthopaedic Surgery; Visit Provider Orthopaedic Surgery
PROC: (CPT 29826; principal; 2020-12-10 11:40)
DX: S46.011A Strain of muscle(s) and tendon(s) of the rotator cuff of right shoulder, initial encounter (principal); S46.111A Strain of muscle, fascia and tendon of long head of biceps, right arm, initial encounter; X58.XXXA Exposure to other specified factors, initial encounter; Y93.9 Activity, unspecified; Y92.89 Other specified places as the place of occurrence of the external cause; Y99.0 Civilian activity done for income or pay; F32.9 Major depressive disorder, single episode, unspecified; F41.9 Anxiety disorder, unspecified; F17.200 Nicotine dependence, unspecified, uncomplicated; Z79.899 Other long term (current) drug therapy; Z78.0 Asymptomatic menopausal state
CPT/HCPCS: 29826; 29827; 64415; 36415; 85027; 93005; J7120; C1713

== ENCOUNTER → 2021-03-30 08:58 | Outpatient (CLI) | payer MEDICAID, SELFPAY ==
[2021-03-05 11:12] VITALS: BMI 24.3
[2021-03-30 09:31] LABS: Absolute Lymphocyte Count 2.95 X10^3/uL (0.83-4.51); Absolute Neutrophil Count 4.7 X10^3/uL (2.0-7.7); Basophil# 0.05 X10^3/uL; Basophil% 0.6 % (0-1); Eosinophil# 0.23 X10^3/uL; Eosinophils% 2.7 % (0-5); Hemoglobin 12.7 g/dL (12.0-15.0); Lymphocyte # 2.95 X10^3/ul (0.83-4.51); Lymphocyte % 34.9 % (19-41); Mean Corp Hgb Conc 32.6 g/dL (32-36); Mean Corpuscular Hgb 30.3 pg (27.0-32.0); Mean Corpuscular Volume 93.1 fL (81-99); Mean Platelet Vol. 10.3 fl (6.2-12.0); Monocyte# 0.53 X10^3/uL; Monocyte% 6.3 % (0-10); NRBC Flagged by Analyzer 0 % (0-5); Neutrophil # 4.67 X10^3/uL (2.7-7.7); Neutrophil % 55.3 % (47-70); Platelet Count 312 K/mm3 (150-450); RBC Distribution Width CV 13.8 % (11.6-14.6); RBC Distribution Width SD 47.5 fl (35.1-43.9); Red Blood Count 4.19 M/mm3 (4.2-5.4); White Blood Count 8.5 K/mm3 (4.4-11.0)
[2021-03-30 10:21] LABS: ALB/GLOB Ratio 0.9 RATIO (0.9-2.4); AST(SGOT) 23 U/L (15-37); Alanine Aminotransfer ALT/SGPT 36 U/L (13-56); Albumin, Serum 3.3 g/dL (3.2-5.0); Alkaline Phosphatase 63 U/L (45-117); Anion Gap 6 (5-15); BUN 19 mg/dL (7-18); BUN/Creat Ratio 22.5 RATIO (10-20); Calcium,Total 8.5 mg/dL (8.5-10.1); Chloride 108 mmol/L (98-107); Cholesterol 217 mg/dL (200); Creatinine, Serum 0.84 mg/dL (0.55-1.02); EST Glomerular Filtration Rate 73 mL/min (>60); Est Glom Filt Rate - Afr Amer 89 mL/min (>60); Globulin 3.7 g/dL (2.2-4.2); Glucose 103 mg/dL (74-106); High Density Lipoprotein 53 mg/dL; Potassium 4.4 mmol/L (3.5-5.1); Sodium Level 140 mmol/L (136-145); Thyroid Stim Hormone (TSH) 2.68 uIU/mL (0.358-3.74); Triglycerides 178 mg/dL; Very Low Density Lipoprotein 36 mg/dL (5-40)
[2021-04-01 21:25] LABS: Vitamin D 1,25-Dihydroxy 38.1 pg/mL (19.9-79.3)
== END ==
DX: F41.9 Anxiety disorder, unspecified (principal); E55.9 Vitamin D deficiency, unspecified
CPT/HCPCS: 36415; 80053; 80061; 82652; 84443; 85025

== ENCOUNTER → 2021-04-13 09:01 | Outpatient (CLI) | payer MEDICAID, SELFPAY ==
[2021-03-05 11:12] VITALS: BMI 24.3
[2021-04-13 10:53] LABS: Vitamin B12 565 pg/mL (211-911)
[2021-04-13 11:27] LABS: Iron 88 ug/dL (50-170); Iron Binding Capacity,Total 272 ug/dL (250-450); PERCENT IRON SATURATION 32.4 % (15.0-55.0)
== END ==
PROVIDERS: PCP Nurse Practitioner Adult Health; Referring Provider Nurse Practitioner Adult Health; Visit Provider Nurse Practitioner Adult Health
DX: D64.9 Anemia, unspecified (principal)
CPT/HCPCS: 36415; 82607; 82746; 83540; 83550

== ENCOUNTER 2021-05-12 05:59 | Day surgery (SDC) | payer MEDICAID, SELFPAY ==
[2021-05-12] VITALS (7 sets, daily range): BP systolic 103–129; BP diastolic 58–72; PULSE 69–88; RESP 16; TEMP 35.9–36.4; O2SAT 98–99; BMI 26.0
--- NOTE | 2021-05-12 06:16 | HP.PCM_ITS ---
HPI - General HPI Narrative SHARMILA MASON, is a 61 F who presents who presents for colonoscopy today. Previous colonoscopy was 2013 and she did have polyps at that time. She denies any bright red blood per rectum or melena. She presents via open access today. 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 She has been vaccinated. [facility] Medical History (Updated 05/12/21 @ 06:[address] Momo Garcia MD) Anxiety Cancer Cancer Depression Gastric reflux History of steroid therapy History of stress test Injury of back Injury of head and neck Leg cramps Shoulder pain Smoker Wears glasses Wears partial dentures Home Medications tamoxifen 20 mg PO DAILY 08/01/17 [History Last Taken 12/10/20 07:30] ibuprofen 200 mg tablet 200 mg PO Q6H PRN 07/16/19 [History Last Taken Unknown] nortriptyline 25 mg capsule 25 mg PO QHS 02/05/20 [History Last Taken Unknown] Allergy/AdvReac Type Severity Reaction Status Date / Time No Known Allergies Allergy Verified 05/11/21 13:19 Surgical History (Updated 05/11/21 @ 13:28 by Julita Jesus) History of mastectomy Hx laparoscopic cholecystectomy Hx of arthroscopy of shoulder Hx of colonoscopy Social History Smoking Status: Current every day smoker tobacco type: cigarettes ROS Constitutional Constitutional: Reports systems reviewed and no addt'l complaints, except as documented Cardiovascular Cardiovascular: Denies chest pain Respiratory/Chest Respiratory/Chest: Denies shortness of breath at rest Gastrointestinal Gastrointestinal: Denies abdominal pain, change in bowel habits, hematochezia or melena Physical Exam Const alert, oriented x3 and no apparent distress General Appearance: cooperative and comfortable Eyes General Eye: normal appearance of both eyes Neck General: normal visual inspection Chest inspection of chest normal Resp Effort and Inspection: able to speak in complete sentences and symmetric chest movement Auscultation: clear to auscultation bilaterally Cardio regular rate and regular rhythm GI soft to palpation, non-tender and non-distended Extremity no calf tenderness Neuro oriented x3 Psych thought process normal Assessment & Plan Assessment/Plan (1) Personal history of colonic polyps: PLAN: 61-year-old female with a personal history of colon polyps and previous colonoscopy approximately 2013. I propose for her a colonoscopy with possible biopsy or polypectomy as indicated. She is aware of the technique, b enefit, risk, alternatives. She has had an opportunity to ask and have questions answered. We will proceed as noted. Momo Garcia M.D., F.A.C.S.
[2021-05-12] MEDS: Lactated Ringers 1,000 ML 100 ML IV (06:31)
--- NOTE | 2021-05-12 07:16 | OP.COLON_ITS ---
Patient Name: Maggie Ragsdale Procedure Date: 05/12/2021 6:56 AM Date of : 1960 Age: 61 Procedure: Colonoscopy Indications: High risk colon cancer surveillance: Personal history of colonic polyps Providers: Momo Garcia MD Medicines: See the Anesthesia note for documentation of the administered medications Patient Profile: Last Colonoscopy: 2013. Complications: No immediate complications. Procedure: Pre-Anesthesia Assessment: - Prior to the procedure, a History and Physical was performed, and patient medications and allergies were reviewed. The patient's tolerance of previous anesthesia was also reviewed. The risks and benefits of the procedure and the sedation options and risks were discussed with the patient. All questions were answered, and informed consent was obtained. Prior Anticoagulants: The patient has taken no previous anticoagulant or antiplatelet agents. ASA Grade Assessment: II - A patient with mild systemic disease. After reviewing the risks and benefits, the patient was deemed in satisfactory condition to undergo the procedure. After I obtained informed consent, the scope was passed under direct vision. Throughout the procedure, the patient's blood pressure, pulse, and oxygen saturations were monitored continuously. The Colonoscope was introduced through the anus and advanced to the cecum, identified by appendiceal orifice and ileocecal valve. The colonoscopy was performed without difficulty. The patient tolerated the procedure well. The quality of the bowel preparation was good. The ileocecal valve and the appendiceal orifice were photographed. Scope In: 7:00:47 AM Scope Withdrawal Time 0 hours 6 minutes 36 seconds Scope Out: 7:12:26 AM Total Procedure Duration Time 0 hours 11 minutes 39 seconds Findings: The digital rectal exam findings include non-thrombosed external hemorrhoids, non-thrombosed internal hemorrhoids and internal hemorrhoids that prolapse with straining, but spontaneously regress to the resting position (Grade II). Multiple diverticula were found in the sigmoid colon. The exam was otherwise without abnormality. Impression: - Non-thrombosed external hemorrhoids, non-thrombosed internal hemorrhoids and internal hemorrhoids that prolapse with straining, but spontaneously regress to the resting position (Grade II) found on digital rectal exam. - Diverticulosis in the sigmoid colon. - The examination was otherwise normal. - No specimens collected. Recommendation: - Discharge patient to home. - Resume previous diet. - Continue present medications. - Repeat colonoscopy in 10 years for screening purposes. Procedure Code(s): --- Professional --- 71543, Colonoscopy, flexible; diagnostic, including collection of specimen(s) by brushing or washing, when performed (separate procedure) Diagnosis Code(s): --- Professional --- Z86.010, Personal history of colonic polyps K64.1, Second degree hemorrhoids K64.4, Residual hemorrhoidal skin tags K57.30, Diverticulosis of large intestine without perforation or abscess without bleeding CPT copyright 2017 [employer]. All rights reserved. The codes documented in this report are preliminary and upon radar engineer review may be revised to meet current compliance requirements. Momo Garcia MD 05/12/2021 7:16:25 AM This report has been signed electronically. Number of Addenda: 0 Note Initiated On: 05/12/2021 6:56 AM
--- NOTE | 2021-05-12 07:17 | OP.CCLET_ITS ---
05/12/2021 Uriel Davis Re : Colonoscopy procedure for Maggie Cutlerr Wiliam This procedure was performed on Wednesday, May 12, 2021. My impressions and recommendations are as follows: Impressions : - Non-thrombosed external hemorrhoids, non-thrombosed internal hemorrhoids and internal hemorrhoids that prolapse with straining, but spontaneously regress to the resting position (Grade II) found on digital rectal exam. - Diverticulosis in the sigmoid colon. - The examination was otherwise normal. - No specimens collected. Recommendations : - Discharge patient to home. - Resume previous diet. - Continue present medications. - Repeat colonoscopy in 10 years for screening purposes. My findings are described in the full procedure note, which is enclosed. If I can be of further assistance, please feel free to contact me at Doctor phone number(s): Work: . Sincerely, Momo Garcia MD 05/12/2021 7:16:25 AM This report has been signed electronically.
== END 2021-05-12 07:53 ==
LOC: EN 06:03 → AC 06:03
PROVIDERS: PCP Nurse Practitioner Adult Health; Referring Provider Nurse Practitioner Adult Health; Visit Provider Surgery
PROC: 0DJD8ZZ Inspection of Lower Intestinal Tract, Via Natural or Artificial Opening Endoscopic (ICD-10-PCS; CPT 45378; principal; 2021-05-12 06:55)
DX: Z12.11 Encounter for screening for malignant neoplasm of colon (principal); K57.30 Diverticulosis of large intestine without perforation or abscess without bleeding; K64.1 Second degree hemorrhoids; K64.4 Residual hemorrhoidal skin tags; K21.9 Gastro-esophageal reflux disease without esophagitis; F32.9 Major depressive disorder, single episode, unspecified; F41.9 Anxiety disorder, unspecified; F17.210 Nicotine dependence, cigarettes, uncomplicated; Z86.010 Personal history of colon polyps
CPT/HCPCS: 45378; J7120

== ENCOUNTER 2021-08-07 09:00 | Outpatient (RCR) | payer OTHER, SELFPAY ==
[2020-12-23 10:53] VITALS: BMI 24.3
--- NOTE | 2021-01-13 08:36 | HP.PTEVAL ---
Patient's Visit Information SHARMILA MASON is a 60 year old F referred to Physical Therapy by Dr. Beatriz De Leon DO with a diagnosis of R Subscap/supraspinatus repair on 12-10-20 and SAD/acromioplasty. Date of Evaluation: 01/13/21 Physical Therapist: TRANG Jernigan - Visit Plan Frequency: 2-3x /Week Duration: 3 Months Plan: 2-3 X / week for 12 visits for PROM per protocol (Flexion to 130 and ER to 45 before able to proceed to Phase II). - Subjective She first injured her shoulder Sep 29 2018. She was at work moving some trays and she just hurt it. Pt works at a [employer]. She still works there but is off. She tried conservative therapy with no success and got an MRI and had surgery to repair subscap and supraspinatus on 12-10-20. She is now in an abd brace and she goes back tuesday and hoping that the brace comes off. She is doing dangling exercises at home. She is R handed. She is not driving. - Pain R shoulder pain Pain Intensity (Out of 10): 4 Pain Intensity Range: 8 - Objective PROM R shoulder: ER 25 degrees, flexion 86 degrees. Instructed pt in sleeping in supine with pillow under scapular and entire shoulder with sling on. Pt is doing pedulums with good form. She She is squeezing the ball at home and does bicep curls. - Goals Goal 1:: I HEP Goal Time Frame: 4-6 Weeks Goal 2:: Increase R shoulder PROM to 130 degrees flexion to be able to go to Phase II Goal Time Frame: 2-4 Weeks Goal 3:: Increase R shoulder to 160 degrees flex and abd and 45 degrees ER by D/C Goal Time Frame: 4-6 Weeks Goal 4:: Increase R shoulder MMT to 4/5 flex, abd and ER 4/5 by DC Goal Time Frame: 4-6 Weeks Goal 5:: Decrease R shoulder pain to 0/10 with ADL's Goal Time Frame: 4-6 Weeks - Rehabilitation Potential Rehabilitation Potential: Good - Anticipated Interventions Patient/Client Instruction: Educate patient on: Condition, Plan of Care For the Purpose of:: To decrease pain, To decrease swelling/inflammation, To increase ROM, To improve nutrient delivery to tissue, To improve muscle performance and motor function, To improve ability to perform ADL's, To increase tolerance to activity/condition/position, To improve performance and independence with ADL's, To decrease level of supervision to perform tasks, To improve ability of physical actions for home/community/work/leisure, To improve health of tissue, To decrease soft tissue restriction, To increase flexibility/ROM Therapeutic Exercise to Include: Strength training, Postural training, Flexibilty training, Neuromotor development, Active ROM, Scapular Strength/Stabilization For the Purpose of:: To decrease pain, To increase ROM, To improve nutrient delivery to tissue, To improve muscle performance and motor function, To improve ability to perform ADL's, To increase tolerance to activity/condition/position, To improve performance and independence with ADL's, To improve health of tissue, To decrease soft tissue restriction, To increase flexibility/ROM Manual Therapy Techniques to Include: Mobilization, Passive ROM For the Purpose of:: To decrease pain, To decrease swelling/inflammation, To increase ROM, To improve nutrient delivery to tissue, To improve muscle performance and motor function, To improve ability to perform ADL's, To increase tolerance to activity/condition/position, To improve health of tissue, To decrease soft tissue restriction, To increase flexibility/ROM Cryotherapy (ice pack, ice massage): Yes For the Purpose of:: To decrease pain, To decrease swelling/inflammation, To improve nutrient delivery to tissue Thank you for the opportunity to evaluate your patient. For Medicare and Medicare HMO plans, please review the plan of care and approve it. It will need to be FAXED BACK to us at [phone] for Medicare purposes. For Medicare only, by signing this I certify the plan of care. Please let me know if there are questions or concerns regarding this plan of care. Physician Signature: Date:
--- NOTE | 2021-04-15 11:39 | HP.PTREVAL ---
Dr. Beatriz De Leon, DO, It has been my pleasure to treat SHARMILA MASON over the last 30 visits for R Subscap/supraspinatus repair on 12-10-20 and SAD/acromioplasty. Please see the progress note below for an update on the physical therapy plan of care! Subjective: She increased her stretching to 2 at home and can feel it and it is getting less painful. Sees Dr hendricks. Pt reports that AAROM IR is not as painful Objective/Function: AROM flexion between 105 and 110 degrees but can only hold it a second. AROM abd 105 degrees. PROM has a softer end feel with elevation and still painful but improving. Plan Plan: CONTINUE to push end range motion and strength. ADD t-band exercises next visit Balance/Gait/Functional tests - Balance/Special Test Scores Quick DASH Score: 34.0900 Goals Goal 1:: I HEP Goal Time Frame: 4-6 Weeks Goal Progress: Goal Met Goal 2:: Increase R shoulder PROM to 130 degrees flexion to be able to go to Phase II Goal Time Frame: 2-4 Weeks Goal Progress: Goal Met Goal 3:: Increase R shoulder to 160 degrees flex and abd and 45 degrees ER by D/C Goal Time Frame: 4-6 Weeks Goal 4:: Increase R shoulder MMT to 4/5 flex, abd and ER 4/5 by DC Goal Time Frame: 4-6 Weeks Goal 5:: Decrease R shoulder pain to 0/10 with ADL's Goal Time Frame: 4-6 Weeks Goal 6:: Increase R shoulder AROM to 165 degrees flex and abd painfree Goal Time Frame: 8-12 Weeks Anticipated Interventions Patient/Client Instruction: Educate patient on: Condition, Plan of Care For the Purpose of:: To decrease pain, To decrease swelling/inflammation, To increase ROM, To improve nutrient delivery to tissue, To improve muscle performance and motor function, To improve ability to perform ADL's, To increase tolerance to activity/condition/position, To improve performance and independence with ADL's, To decrease level of supervision to perform tasks, To improve ability of physical actions for home/community/work/leisure, To improve health of tissue, To decrease soft tissue restriction, To increase flexibility/ROM Therapeutic Exercise to Include: Strength training, Postural training, Flexibilty training, Neuromotor development, Active ROM, Scapular Strength/Stabilization For the Purpose of:: To decrease pain, To increase ROM, To improve nutrient delivery to tissue, To improve muscle performance and motor function, To improve ability to perform ADL's, To increase tolerance to activity/condition/position, To improve performance and independence with ADL's, To improve health of tissue, To decrease soft tissue restriction, To increase flexibility/ROM Manual Therapy Techniques to Include: Mobilization, Passive ROM For the Purpose of:: To decrease pain, To decrease swelling/inflammation, To increase ROM, To improve nutrient delivery to tissue, To improve muscle performance and motor function, To improve ability to perform ADL's, To increase tolerance to activity/condition/position, To improve health of tissue, To decrease soft tissue restriction, To increase flexibility/ROM Cryotherapy (ice pack, ice massage): Yes For the Purpose of:: To decrease pain, To decrease swelling/inflammation, To improve nutrient delivery to tissue Please do not hesitate to contact me at [phone] by phone or if you have questions or concerns regarding this new plan of care! Sincerely, Sandy Nguyen, MPT
--- NOTE | 2021-05-22 10:40 | HP.PTREVAL ---
Dr. Beatriz De Leon, DO, It has been my pleasure to treat SHARMILA MASON over the last 40 visits for R Subscap/supraspinatus repair on 12-10-20 and SAD/acromioplasty. Please see the progress note below for an update on the physical therapy plan of care! Subjective: Pt reports that she is not feeling so great. She got her shots yesterday in her shoulder and was numb. Dr told her to increase the time on the Dynasling and she did it for 40 min last night while she was numb and she is super stiff and painful and swollen today. Dr ordered more PT Objective/Function: See Slightly improved AA elevation but R elbow is still bent while doing it. Pt will change the Dynasplint to keep her elbow straight with stretching. Pt is still painful at end range stretching. Plan Plan: Continue with scapualr work. Continue end range stretching and strengthening and pain control Balance/Gait/Functional tests - Balance/Special Test Scores Quick DASH Score: 40.9075 Goals Goal 1:: I HEP Goal Time Frame: 4-6 Weeks Goal Progress: Goal Met Goal 2:: Increase R shoulder PROM to 130 degrees flexion to be able to go to Phase II Goal Time Frame: 2-4 Weeks Goal Progress: Goal Met Goal 3:: Increase R shoulder to 160 degrees flex and abd and 45 degrees ER by D/C Goal Time Frame: 4-6 Weeks Goal 4:: Increase R shoulder MMT to 4/5 flex, abd and ER 4/5 by DC Goal Time Frame: 4-6 Weeks Goal 5:: Decrease R shoulder pain to 0/10 with ADL's Goal Time Frame: 4-6 Weeks Goal 6:: Increase R shoulder AROM to 165 degrees flex and abd painfree Goal Time Frame: 8-12 Weeks Anticipated Interventions Patient/Client Instruction: Educate patient on: Condition, Plan of Care For the Purpose of:: To decrease pain, To decrease swelling/inflammation, To increase ROM, To improve nutrient delivery to tissue, To improve muscle performance and motor function, To improve ability to perform ADL's, To increase tolerance to activity/condition/position, To improve performance and independence with ADL's, To decrease level of supervision to perform tasks, To improve ability of physical actions for home/community/work/leisure, To improve health of tissue, To decrease soft tissue restriction, To increase flexibility/ROM Therapeutic Exercise to Include: Strength training, Postural training, Flexibilty training, Neuromotor development, Active ROM, Scapular Strength/Stabilization For the Purpose of:: To decrease pain, To increase ROM, To improve nutrient delivery to tissue, To improve muscle performance and motor function, To improve ability to perform ADL's, To increase tolerance to activity/condition/position, To improve performance and independence with ADL's, To improve health of tissue, To decrease soft tissue restriction, To increase flexibility/ROM Manual Therapy Techniques to Include: Mobilization, Passive ROM For the Purpose of:: To decrease pain, To decrease swelling/inflammation, To increase ROM, To improve nutrient delivery to tissue, To improve muscle performance and motor function, To improve ability to perform ADL's, To increase tolerance to activity/condition/position, To improve health of tissue, To decrease soft tissue restriction, To increase flexibility/ROM Cryotherapy (ice pack, ice massage): Yes For the Purpose of:: To decrease pain, To decrease swelling/inflammation, To improve nutrient delivery to tissue Please do not hesitate to contact me at [phone] by phone or if you have questions or concerns regarding this new plan of care! Sincerely, Sandy Nguyen MPT
== END 2021-08-07 19:00 | disposition home or self-care (01) ==
LOC: PT 09:00
PROVIDERS: Referring Provider Orthopaedic Surgery; Visit Provider Orthopaedic Surgery
DX: S46.011D Strain of muscle(s) and tendon(s) of the rotator cuff of right shoulder, subsequent encounter (principal); S43.401D Unspecified sprain of right shoulder joint, subsequent encounter; S46.211D Strain of muscle, fascia and tendon of other parts of biceps, right arm, subsequent encounter
CPT/HCPCS: 97014; 97110; 97140; 97162; 97530; G0283

== ENCOUNTER 2022-01-11 09:57 | Outpatient (RCR) | payer OTHER, MEDICAID, SELFPAY | END 2022-01-11 19:00 | disposition home or self-care (01) | LOC: PT 09:57 | PROVIDERS: PCP Nurse Practitioner Adult Health | DX: M75.01 Adhesive capsulitis of right shoulder (principal) ==

== ENCOUNTER 2022-02-05 11:00 | Outpatient (RCR) | payer OTHER, MEDICAID, SELFPAY ==
--- NOTE | 2021-09-28 11:38 | HP.PTREVAL ---
Nancy Swain, MY-C, It has been my pleasure to treat SHARMILA MASON over the last 66 visits for R Subscap/supraspinatus repair on 12-10-20 and SAD/acromioplasty. Please see the progress note below for an update on the physical therapy plan of care! Subjective: Pt saw Dr on Tuesday and she was impressed at how far we have gotten. The Dr said that the bicep pain is something she will have to deal with off and on.. She requested 6 more weeks of PT and then decide on manipulation. Objective/Function: Pt really felt the stretch on the lat pull down machine. PROM R flex 168 degrees. AROM R shld flex 140 degrees. Improved end range motion and easier to stretch. Procedure seemed to help loosen tissues. Plan Plan: Awaiting on approval for additional visits. Balance/Gait/Functional tests - Balance/Special Test Scores Quick DASH Score: 18.1800 Goals Goal 1:: I HEP Goal Progress: Goal Met Goal 2:: Increase R shoulder PROM to 165 degrees flexion to be able to go to Phase II Goal Progress: Progressing Goal 3:: Increase R shoulder to 175 degrees flex and abd and 45 degrees ER by D/C Goal Progress: Progressing Goal 4:: Increase R shoulder MMT to 4/5 flex, abd and ER 4/5 by DC Goal Progress: Progressing Goal 5:: Decrease R shoulder pain to 0/10 with ADL's Goal Progress: Progressing Anticipated Interventions Please do not hesitate to contact me at [phone] by phone or if you have questions or concerns regarding this new plan of care! Sincerely, Sandy Nguyen, MPT
--- NOTE | 2021-11-10 11:05 | HP.PTREVAL_ITS ---
Nancy Swain, CARE TRANSITION COORDINATOR-C, It has been my pleasure to treat SHARMILA MASON over the last 67 visits for R Subscap/supraspinatus repair on 12-10-20 and SAD/acromioplasty. Please see the progress note below for an update on the physical therapy plan of care! Subjective: Pt reports that she does not have much pain but still has limited mobility. Dr wants her to work on strength because she can not lift over her head. She will not be getting additional C-9 approval for her shoulder Objective/Function: R shoulder strength/ROM. Flexion 11.1/120. ABD 9.4/114. ER 10.7/53. IR 16.5/L4. Bicep 10.4. L shoulder strength/ROM. Flex 16.9/152. ABD 18.1/165. ER 18.5/66. IR 22.3/T8. bicep 21.5 Plan Plan: IR/ER green/ S/L ER 2# and bicep 5# Balance/Gait/Functional tests - Balance/Special Test Scores Quick DASH Score: 18.1800 Goals Goal 1:: I HEP Goal Progress: Goal Met Goal 2:: Increase R shoulder PROM to 165 degrees flexion to be able to go to Phase II Goal Progress: Progressing Goal 3:: Increase R shoulder to 175 degrees flex and abd and 45 degrees ER by D/C Goal Progress: Progressing Goal 4:: Increase R shoulder MMT to 4/5 flex, abd and ER 4/5 by DC Goal Progress: Progressing Goal 5:: Decrease R shoulder pain to 0/10 with ADL's Goal Progress: Progressing Anticipated Interventions Please do not hesitate to contact me at [phone] by phone or if you have questions or concerns regarding this new plan of care! Sincerely, Sandy Nguyen, MPT
--- NOTE | 2021-12-02 11:17 | HP.PTDCSUM_ITS ---
It has been my pleasure to treat SHARMILA MASON referred by JÚNIOR Davis, with the diagnosis of R Subscap/supraspinatus repair on 12-10-20 and SAD/acromioplasty for a total of 75 visit(s). Discharge Date: 12/02/21 Please see the following information for a summary of their discharge status. Subjective: Pt last day is Tuesday and Theresa will see me for the last session according to the end date. No injection scheduled yet. bicep Pain Intensity (Out of 10): 0 R shoulder pain Pain Intensity (Out of 10): 0 % Improvement: 80 Objective/Function: R shoulder MMT: 4-/5 R shoulder flex/abd (within available ROM), 3+/5 ER and 4-/5 IR. Pt felt tighter today at end ranges. Pt admits to not doing as much stretching at home and doing more strengthening. R shoulder PROM: flex 154 and 175 abd tight at end range. R shoulder AROM: abd 135 and flex 140 Goal 1:: I HEP Goal Progress: Goal Met Goal 2:: Increase R shoulder PROM to 165 degrees flexion to be able to go to Phase II Goal Progress: Progressing Goal 3:: Increase R shoulder to 175 degrees flex and abd and 45 degrees ER by D/C Goal Progress: Progressing Goal 4:: Increase R shoulder MMT to 4/5 flex, abd and ER 4/5 by DC Goal Progress: Progressing Goal 5:: Decrease R shoulder pain to 0/10 with ADL's Goal Progress: Goal Met Plan: Continue x1 visits. DIRECTOR OF VENDOR MANAGEMENT to tell PT to DC as all DC info was gathered today Discharge Comments: DC PT to HEP If there are questions or concerns regarding this patient's physical therapy, please feel free to call me at [phone]. Thank you for the referral of this patient. Sincerely, Sandy Nguyen, MPT Balance/Gait/Functional tests - Balance/Special Test Scores Quick DASH Score: 22.7250
--- NOTE | 2022-01-11 10:57 | HP.PTREVAL ---
Nancy Swain, HEAD AND NECK SURGEON-C, It has been my pleasure to treat SHARMILA MASON over the last 77 visits for ADHESIVE CAPSULITIS. Subscap/supraspin repair 12-10-20 and SAD/acromioplasty. Please see the progress note below for an update on the physical therapy plan of care! Subjective: JAN 01 2022 REC'D A CORTISONE SHOT IN RIGHT SHLD BY DR. CATHERINE BAUTISTA. PATIENT REPORTS THE SHOT GAVE AWASOME RESULTS. SHE REPORTS MUCH IMPROVED FREEDOM OF MOTION IN THE RIGHT SHLD NOW. SHE REPORTS IT IS STILL TIGHT BUT IT DOESN'T HURT WITH MVMT MUCH NOW. 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 WORK DOES NOT INVOLVE ANY LIFTING OVER 25 LBS. NO OVER-HEAD LIFTING (SHLD HEIGHT). NO PAIN IN RIGHT SHLD NOW OR SINCE THE SHOT. REPORTS COMPLIANCE WITH HEP. PHYSICIAN RESTRICTIONS: PATIENT DENIES ANY KNOWN RESTRICTIONS BUT HASN'T RETURNED TO HOBBIES OF SOFTBALL AND BOWLING YET. Objective/Function: R shoulder MMT: 4-/5 R shoulder flex/abd (within available ROM), 3+/5 ER and 4-/5 IR. R Field Collector Strength: 45 lbs, L 60 lbs. R shoulder PROM (supine): flex 155 and 164 abd, IR 78 deg, ER 75 deg (IR/ER measured with 90 deg abd). R shoulder AROM: abd 136 and flex 142 Plan Plan: PT 2X'S A WK FOR: R SHLD ROM/STRETCHING AND STRENGTHENING TO HELP MEET SET GOALS WITH FOCUS ON ECCENTRIC STRENGTHENING IN A PAIN FREE ROM. ALSO FOCUS ON SHLD GIRDLE STABILIZATION EX'S. Balance/Gait/Functional tests - Balance/Special Test Scores Quick DASH Score: 20.4525 Goals Goal 1:: I HEP Goal Progress: Goal Met Goal 2:: Increase R shoulder PROM to 165 degrees flexion to be able to go to Phase II Goal Time Frame: flex 154 and 175 abd Goal Progress: Progressing Goal 3:: Increase R shoulder to 175 degrees flex and abd and 45 degrees ER by D/C Goal Time Frame: abd 135 and flex 140 Goal Progress: Progressing Goal 4:: Increase R shoulder MMT to 4/5 flex, abd and ER 4/5 by DC Goal Progress: Progressing Goal 5:: Decrease R shoulder pain to 0/10 with ADL's Goal Progress: Goal Met Anticipated Interventions Please do not hesitate to contact me at [phone] by phone or if you have questions or concerns regarding this new plan of care! Sincerely, Kaya Forrest PT, Cert MDT
== END 2022-02-05 19:00 | disposition home or self-care (01) ==
LOC: PT 11:00
PROVIDERS: PCP Nurse Practitioner Adult Health; Visit Provider Nurse Practitioner Adult Health
DX: S43.401D Unspecified sprain of right shoulder joint, subsequent encounter (principal); X58.XXXD Exposure to other specified factors, subsequent encounter
CPT/HCPCS: 97110; 97140; 97530

== ENCOUNTER → 2022-03-03 | Outpatient (CLI) | payer MEDICAID, SELFPAY ==
--- NOTE | 2022-03-03 09:21 | BD_ITS ---
STUDY: DUAL ENERGY X-RAY ABSORPTIOMETRY / DXA REASON FOR EXAM: Female, 61 years old. [id number]. The patient is postmenopausal. TECHNIQUE: Bone Mineral Density (BMD) measurements of lumbar spine and bilateral hips were obtained. COMPARISON: None. FINDINGS: Lumbar Spine (L1-L4): g/cm2 (1.216) / T-score (1.8) / Z-score (3.3) Findings are suggestive of normal bone density with a low fracture risk. Left Femur Total: g/cm2 (0.936) / T-score (-0.1) / Z-score (0.9) Left Femoral Neck: g/cm2 (0.769) / T-score (-0.7) / Z-score (0.6) Right Femur Total: g/cm2 (0.957) / T-score (0.1) / Z-score (1.1) Right Femoral Neck: g/cm2 (0.797) / T-score (-0.5) / Z-score (0.9) BD/Dexa Bone Density Study IMPRESSION: The patient is considered normal as outlined below according to World [employer] Organization (WHO) criteria with a low fracture risk. Reference Information: The T-score is the number of standard deviations above or below the standard which is normal for young adults at their peak bone mineral density. The World Health Organization (WHO) interprets the T-scores as follows: Above -1 Normal bone density Between -1 and -2.5 Osteopenia Equal to / or below -2.5 Osteoporosis As a practical clinical guideline, osteopenia may be graded as follows: Mild -1 through -1.5 Moderate -1.6 through -2.0 Severe -2.1 through -2.4 The Z-score is the number of standard deviations above or below age-matched controls. A Z-score of less than -1.5 would be considered abnormal. References: 1. NIH Osteoporosis and Related Bone Diseases www osteo.org 2. International Society for Clinical Densitometry www iscd.org 3. National Osteoporosis Foundation www nof.org Electronically Signed: Yonas Pedroza MD at 11:07 EDT ,
== END | disposition home or self-care (01) ==
LOC: OPBD 09:11
PROVIDERS: PCP Nurse Practitioner Adult Health; Referring Provider Nurse Practitioner Adult Health; Visit Provider Nurse Practitioner Adult Health
DX: M85.80 Other specified disorders of bone density and structure, unspecified site (principal); Z78.0 Asymptomatic menopausal state
CPT/HCPCS: 77080

== ENCOUNTER → 2023-11-16 | Outpatient (CLI) | payer BC, SELFPAY ==
--- NOTE | 2023-11-16 11:46 | NEURO ---
NCS and/or EMG Patient Report Ordering Doctor: Vicenta Ragsdale DATE OF SERVICE: 11/16/23 Maggie presents for electrodiagnostic testing of the right upper limb. She reports intermittent numbness and tingling in the right hand. Electrodiagnostic findings: Right median motor nerve demonstrates normal distal latency, amplitude and conduction velocity. Right ulnar motor responses within normal limits, including conduction across the elbow. Sensory responses are normal. Normal median and ulnar F?waves. Needle EMG testing was performed in the right upper limb. All muscles tested showed no evidence of denervation with normal motor unit action potentials. Electrodiagnostic impression: This a normal electrodiagnostic study of the right upper limb. There is no electrodiagnostic evidence for peripheral neuropathy, including carpal tunnel or cubital tunnel syndrome. There is no electrodiagnostic evidence for cervical radiculopathy. Multi Select Codes Neurology Neurology Interp Codes: 48879-57 Musc test done w/n test comp (interp) and 06691-97 Nrv cndj test 7-8 studies (interp)
== END | disposition home or self-care (01) ==
PROVIDERS: PCP Family Medicine; Referring Provider Family Medicine; Visit Provider Family Medicine
DX: R20.0 Anesthesia of skin (principal); F32.9 Major depressive disorder, single episode, unspecified
CPT/HCPCS: 95886; 95910

== ENCOUNTER → 2024-04-23 | Outpatient (CLI) | payer BC, SELFPAY ==
[2024-04-23 10:54] LABS: Absolute Lymphocyte Count 2.94 X10^3/uL (0.83-4.51); Absolute Neutrophil Count 4.5 X10^3/uL (2.0-7.7); Basophil# 0.06 X10^3/uL; Basophil% 0.7 % (0-1); Eosinophil# 0.16 X10^3/uL; Hematocrit 40.4 % (37-47); Hemoglobin 13.3 g/dL (12.0-15.0); Lymphocyte # 2.94 X10^3/ul (0.83-4.51); Lymphocyte % 36.4 % (19-41); Mean Corp Hgb Conc 32.9 g/dL (32-36); Mean Corpuscular Hgb 29.3 pg (27.0-32.0); Mean Platelet Vol. 10.7 fl (6.2-12.0); Monocyte# 0.42 X10^3/uL; Monocyte% 5.2 % (0-10); NRBC Flagged by Analyzer 0 % (0-5); Neutrophil # 4.48 X10^3/uL (2.7-7.7); Neutrophil % 55.5 % (47-70); Platelet Count 336 K/mm3 (150-450); RBC Distribution Width CV 14.1 % (11.6-14.6); RBC Distribution Width SD 45.2 fl (35.1-43.9); Red Blood Count 4.54 M/mm3 (4.2-5.4); White Blood Count 8.1 K/mm3 (4.4-11.0)
[2024-04-23 11:58] LABS: Vitamin D,25 Hydroxy 28.2 ng/mL
[2024-04-23 12:11] LABS: ALB/GLOB Ratio 0.9 RATIO (0.9-2.4); AST(SGOT) 15 U/L (15-37); Alanine Aminotransfer ALT/SGPT 22 U/L (13-56); Albumin, Serum 3.5 g/dL (3.2-5.0); Alkaline Phosphatase 83 U/L (45-117); Anion Gap 6 (5-15); BUN 19 mg/dL (7-18); BUN/Creat Ratio 20.1 RATIO (10-20); Calcium,Total 9.3 mg/dL (8.5-10.1); Chloride 110 mmol/L (98-107); Cholesterol 230 mg/dL (200); Creatinine, Serum 0.94 mg/dL (0.55-1.02); EST Glomerular Filtration Rate 64 mL/min (>60); Est Glom Filt Rate - Afr Amer 77 mL/min (>60); Globulin 3.8 g/dL (2.2-4.2); Glucose 109 mg/dL (74-106); High Density Lipoprotein 52 mg/dL; Potassium 3.9 mmol/L (3.5-5.1); Protein, Total 7.3 g/dL (6.4-8.2); Sodium Level 141 mmol/L (136-145); Triglycerides 116 mg/dL; Very Low Density Lipoprotein 23 mg/dL (5-40)
== END | disposition home or self-care (01) ==
LOC: LAB 10:32
PROVIDERS: PCP Family Medicine; Referring Provider Family Medicine; Visit Provider Family Medicine
DX: G47.00 Insomnia, unspecified (principal); Z13.220 Encounter for screening for lipoid disorders; Z13.1 Encounter for screening for diabetes mellitus; Z83.49 Family history of other endocrine, nutritional and metabolic diseases; N95.1 Menopausal and female climacteric states
CPT/HCPCS: 36415; 80053; 80061; 82306; 84443; 85025

== ENCOUNTER → 2024-10-11 | Outpatient (CLI) | payer BC, SELFPAY ==
[2024-10-11 16:07] LABS: Vitamin D,25 Hydroxy 106.2 ng/mL
[2024-10-11 16:31] LABS: Hemoglobin A1c 5.8 % (3.8-5.6)
== END | disposition home or self-care (01) ==
LOC: MFPLAB 11:28
PROVIDERS: PCP Family Medicine; Referring Provider Family Medicine; Visit Provider Family Medicine
DX: E03.8 Other specified hypothyroidism (principal); R73.09 Other abnormal glucose; E55.9 Vitamin D deficiency, unspecified
CPT/HCPCS: 36415; 82306; 83036; 84443

== ENCOUNTER → 2025-04-11 | Outpatient (CLI) | payer BC, SELFPAY ==
[2025-04-11 16:18] LABS: Vitamin D,25 Hydroxy 35.2 ng/mL (30-100)
--- OUTSIDE RECORDS SUMMARY | 2025-04-11 19:02 | XMS RPT_ITS | CCD ---
Author Organization [facility] Care Team Providers Care Head Resident Name Role Phone Darryl Moreno Unavailable Unavailable PROVIDER, UNKNOWN Unavailable Unavailable Makayla, Pankil Unavailable Unavailable Josh Darryl Unavailable Unavailable PROVIDER, UNKNOWN Unavailable Unavailable Makayla, Pankil Unavailable Unavailable Makayla, Pankil Unavailable Unavailable Jes Pérez Unavailable Unavailable PROVIDER, UNKNOWN Unavailable Unavailable Unavailable Primary Care Provider UnavailMERON Jiménez Attending Unavailab le CHICORELLIMERON Referring Unavailab le CHICORELMERON SHUKLA Attending Unavailab le CHICORELMERON SHUKLA Attending Unavailab le CHICORELMERON SHUKLA Referring Unavailab GUS Thurman Attending Unavailable CHICORELMERON SHUKLA Referring Unavailab GUS Thurman Attending Unavailable MERON DE LEON Referring Unavailab DARRYL Negron Referring Unavailable DARRYL MORENO Attending Unavailable DO Vicenta Ragsdale Primary Care Provider DO Vicenta Ragsdale Referring Provider DO Vicenta Ragsdale Other Provider Dr. Sana Dahl Attending Provider [phone] Vicenta Ragsdale Primary Care Unavailable Vicenta Ragsdale Attending Unavailable Vicenta Ragsdale Referring Unavailable Liban, Chalon Referring Unavailable Liban, Chalon Primary Care Unavailable Liban Chalon Attending Unavailable Liban, Chalon Primary Care Unavailable Liban Chalon Attending Unavailable Liban Chalon Referring Unavailable Sana Dahl Attending Unavailable Vicenta Ragsdale Primary Care Unavailable Vicenta Ragsdale Consulting Unavailable Vicenta Ragsdale Referring Unavailable Medications Current Medications Medication Drug Class(es) Dates Sig (Normalized) Sig (Original) acetaminophen 325 mg oral capsule (3 sources) Start: 05-21-2021 take 1 capsule by mouth once Acetaminophen (Tylenol) 325 mg capsule Active 325 MG PO ONCE May 21, 2021 12:00am meloxicam 15 mg oral tablet (3 sources) Nonsteroidal Anti-inflammatory Drug Start: 07-03-2021 take 1 tablet by mouth once daily Meloxicam (Mobic) 15 mg tablet Active 15 MG PO DAILY 30 July 03, 2021 12:00am nortriptyline 25 mg oral capsule (3 sources) Tricyclic Antidepressant Start: 02-05-2020 take 25 mg by mouth at bedtime Nortriptyline Active 25 MG PO AT BEDTIME February 05, 2020 12:00am tamoxifen 10 mg oral tablet (3 sources) Estrogen Agonist/Antagonist Start: 08-01-2017 take 20 mg by mouth once daily Tamoxifen Active 20 MG PO DAILY August 01, 2017 1:00am Completed/Discontinued Medications Medication Drug Class(es) Dates Sig (Normalized) Sig (Original) acetaminophen 325 mg / oxyCODONE hydrochloride 5 mg oral tablet (3 sources) Opioid Agonist Start: 12-10-2020 End: 12-15-2020 take 1 tablet by mouth every six hours as needed Oxycodone-Acetaminop hen Discontinued 1 - 2 TABLET PO EVERY 6 HOURS NEEDED 28 5 December 10, 2020 December 15, 2020 12:03am cephalexin 500 mg oral capsule (3 sources) Cephalosporin Antibacterial Start: 12-09-2020 End: 12-15-2020 take 500 mg by mouth every twelve hours Cephalexin Discontinued 500 MG PO EVERY 12 HOURS December 09, 2020 12:00am December 15, 2020 10:57am cholecalciferol 1.25 mg oral capsule (3 sources) Vitamin D Start: 02-05-2020 End: 12-15-2020 take 1250 ug by mouth once daily Cholecalciferol (Vitamin D3) Discontinued 1250 MCG PO DAILY February 05, 2020 12:00am December 15, 2020 10:57am ibuprofen 400 mg oral tablet (6 sources) Nonsteroidal Anti-inflammatory Drug Start: 05-21-2021 End: 07-03-2021 take 400 mg by mouth every eight hours Ibuprofen Discontinued 400 MG PO Q8H May 21, 2021 12:00am July 03, 2021 8:37am Start: 07-16-2019 End: 05-21-2021 take 200 mg by mouth every six hours Ibuprofen Discontinued 200 MG PO EVERY 6 HOURS July 16, 2019 1:00am May 21, 2021 9:34am Magnesium (3 sources) Start: 02-05-2020 End: 12-15-2020 take 250 mg by mouth once daily Magnesium Discontinued 250 MG PO DAILY February 05, 2020 1:37pm December 15, 2020 10:57am Start: 02-05-2020 End: 12-15-2020 take 250 mg by mouth once daily Magnesium Discontinued 250 MG PO DAILY February 05, 2020 12:00am December 15, 2020 10:57am methylPREDNISolone acetate 40 mg/ml injectable suspension (1 source) Corticosteroid Start: 05-21-2021 End: 05-21-2021 Depo-Medrol (methylprednisolone acetate) 40 mg/mL suspension for injection Discontinued 40 MG INTRAARTIC ONCE May 21, 2021 9:13am May 21, 2021 11:01am ondansetron 8 mg oral tablet (3 sources) Serotonin-3 Receptor Antagonist Start: 12-10-2020 End: 01-19-2021 take 8 mg by mouth every eight hours as needed Ondansetron Hcl Discontinued 8 MG PO EVERY 8 HOURS NEEDED December 10, 2020 12:00am January 19, 2021 9:09am potassium gluconate 2.35 meq oral tablet (3 sources) Start: 02-05-2020 End: 12-15-2020 take 550 mg by mouth once daily Potassium Gluconate Discontinued 550 MG PO DAILY February 05, 2020 12:00am December 15, 2020 10:57am QUEtiapine 25 mg oral tablet (3 sources) Atypical Antipsychotic QUEtiapine (SEROQUEL ) 25 mg tablet Take 25 mg by mouth. 0 Active Comment on above: Take 25 mg by mouth. 20 ml ropivacaine hydrochloride 5 mg/ml injection (1 source) Amide Local Anesthetic Start: 12-25-2021 End: 12-25-2021 ropivacaine (PF) 5 mg/mL (0.5 %) 3 mL injection (NAROPIN) Start: 12-25-2021 End: 12-25-2021 ropivacaine (PF) 5 mg/mL (0. 5 %) 3 mL injection (NAROPIN) 5 ml sodium chloride 9 mg/ml injection (1 source) Start: 12-25-2021 End: 12-25-2021 NaCl (PF) 0.9% 5 mL injectio n Start: 12-25-2021 End: 12-25-2021 NaCl (PF) 0.9% 5 mL injectio n 1 ml triamcinolone acetonide 40 mg/ml injection (4 sources) Corticosteroid Start: 12-25-2021 End: 12-25-2021 triamcinolone acetonide 40 mg injection (KeNALog 40) Start: 09-04-2020 End: 09-04-2020 Kenalog (triamcinolone aceto nide) 40 mg/mL suspension for injection Discontinued 80 MG INTRAARTIC ONCE 2 September 04, 2020 1:47pm September 04, 2020 3:12pm Start: 02-25-2020 End: 02-25-2020 Kenalog (triamcinolone aceto nide) 40 mg/mL suspension for injection Discontinued 80 MG INTRAARTIC ONCE 2 February 25, 2020 2:18pm February 25, 2020 3:33pm Start: 10-11-2019 End: 10-11-2019 Kenalog (triamcinolone aceto nide) 40 mg/mL suspension for injection Discontinued 80 MG INTRAARTIC ONCE 2 October 11, 2019 1:57pm October 11, 2019 2:16pm zolpidem tartrate 5 mg oral tablet (3 sources) gamma-Aminobutyric Acid-ergic Agonist Start: 12-10-2020 End: 01-19-2021 take 5 mg by mouth at bedtime as needed Zolpidem Discontinued 5 MG PO AT BEDTIME NEEDED December 10, 2020 12:00am January 19, 2021 9:09am Problems Active Problems Problem Classification Problem Date Documented Da te Episodic/Chronic Anxiety disorders (2 sources) Anxiety disorder, unspecified; Translations: [Anxiety disorder, unspecified] Onset: 05-06-2017 Chronic Cancer of breast (4 sources) Malignant neoplasm of unspecified site of left female breast; Translations: [Malignant neoplasm of unspecified site of unspecified female breast] Onset: 05-04-2017 Chronic Cancer of breast (4 sources) Personal history of malignant neoplasm of breast; Translations: [Personal history of malignant neoplasm of breast] Onset: 05-06-2017 Episodic Esophageal disorders (2 sources) Gastro-esophageal reflux disease without esophagitis; Translations: [Gastro-esophageal reflux disease without esophagitis] Onset: 05-06-2017 Chronic Mood disorders (2 sources) Major depressive disorder, single episode, unspecified; Translations: [Major depressive disorder, single episode, unspecified] Onset: 05-06-2017 Open wounds of extremities (3 sources) Laceration of hand without foreign body; Translations: [Laceration without foreign body of left hand, initial encounter] 07-16-2019 Episodic Other aftercare (4 sources) 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) use of selective estrogen receptor modulators (SERMs); Translations: [Lng trm (crnt) use of slctv estrog receptor modulators] Onset: 05-06-2017 Episodic Other aftercare (3 sources) Follow-up status; Translations: [Encounter for other orthopedic aftercare] 01-19-2021 Episodic Other and unspecified benign neoplasm (3 sources) History of polyp of colon; Translations: [Personal history of colonic polyps] 05-12-2021 Episodic Other and unspecified benign neoplasm (2 sources) Benign neoplasm of connective and other soft tissue, unspecified; Translations: [Benign neoplasm of connective and other soft tissue, unspecified] Onset: 08-17-2022 Episodic Other connective tissue disease (2 sources) Adhesive capsulitis of right shoulder; Translations: [Adhesive capsulitis of right shoulder] Episodic Other female genital disorders (2 sources) Abnormal uterine and vaginal bleeding, unspecified; Translations: [Abnormal uterine and vaginal bleeding, unspecified] Onset: 05-06-2017 Chronic Ovarian cyst (4 sources) Unspecified ovarian cyst, right side; Translations: [Unspecified ovarian cyst, left side] Onset: 08-17-2022 Episodic Sprains and strains (12 sources) Strain of long head of biceps; Translations: [Strain of muscle, fascia and tendon of long head of biceps, right arm, initial encounter] 05-21-2021 Episodic Substance-related disorders (2 sources) Nicotine dependence, cigarettes, uncomplicated; Translations: [Nicotine dependence, cigarettes, uncomplicated] Onset: 05-06-2017 Chronic Thyroid disorders (1 source) Other specified hypothyroidism; Translations: [Other specified hypothyroidism] Onset: 10-24-2024 Chronic Unclassified (2 sources) Unspecified ovarian cyst, right side; Translations: [Unspecified ovarian cyst, right side] Onset: 05-06-2017 Unclassified (2 sources) Unspecified ovarian cyst, left side; Translations: [Unspecified ovarian cyst, left side] Onset: 05-06-2017 Past or Other Problems Problem Classification Problem Date Documented Date Episodic/Chronic Complication of device; implant or graft (2 sources) Hemorrhage due to genitourinary prosthetic devices, implants and grafts, initial encounter; Translations: [Hemorrhage due to genitourinary prosth dev/grft, init] Onset: 05-04-2017 Episodic Contraceptive and procreative management (2 sources) Encounter for removal of intrauterine contraceptive device; Translations: [Encounter for removal of intrauterine contraceptive device] Onset: 05-06-2017 Episodic Medical examination/evaluatio n (2 sources) Encounter for other preprocedural examination; Translations: [Encounter for other preprocedural examination] Onset: 05-04-2017 Episodic Other female genital disorders (2 sources) Polyp of corpus uteri; Translations: [Polyp of corpus uteri] Onset: 05-06-2017 Episodic Other nervous system disorders (2 sources) Anesthesia of skin; Translations: [Anesthesia of skin] Onset: 11-23-2023 Episodic Residual codes; unclassified (1 source) Insomnia, unspecified; Translations: [Insomnia, unspecified] Onset: 05-02-2024 Episodic Unclassified (10 sources) Family history of arthritis; Translations: [Family history of malignant neoplasm of digestive organs] Onset: 05-06-2017 Episodic Results Test Name Value Interpretation Reference Range Facility Hemoglobin A1con 10-11-2024 HbA1c (Bld) [Mass fraction] 5.8 % High 3.8-5.6 [facility] Comment on above: Order Comment: Order Date: 10/11/24 Order Info: [id number] - A1C Result Comment: Norm al < 5.7 % Prediabetic 5.7 - 6.4 % Diabetic >or= 6.5 % Please note range changes. Performed By: #### L 506.1000, L501.9985, L501.9520 #### [facility], [address] Thyroid Stim Hormone (TSH)on 10-11-2024 TSH 1.600 uIU/mL Normal 0.358-3.740 [facility] Comment on above: Order Comment: Order Date: 10/11/24 Order Info: [id number] - TSH Performed By: #### L 506.1000, L501.9985, L501.9520 #### [facility] [address] [place], [address] Vitamin D,25 Hydroxyon 10-11 Vitamin D 25-OH 106.2 ng/mL Normal [facility] Comment on above: Order Comment: Order Date: 10/11/24 Order Info: [id number] - VITD25 Result Comment: Mariana min D 25(OH) Status Range Deficiency <20 ng/mL (50nmol/L) Insufficiency 20 - 30 ng/mL (50 - 75 nmol/L) Sufficiency 30 - 100 ng/mL (75 - 250 nmol/L) Toxicity >100 ng/mL (>250 nmol/L) Evidence suggests that patients undergoing fluorescein dye angiography can retain small amounts of fluorescein in the body for up to 48 to 72 hours post-treatment. In the cases of patients with renal insufficiency, retention could be much longer. Samples containing fluorescein can produce falsely elevated values when tested with the Advia Centaur Vitamin D assay. With fluorescein interference, observed Vitamin D values can be as high as >150 ng/mL (>375 nmol/L). Samples should be resubmitted post fluorescein clearance to ensure there is no interference with Vitamin D test results. Performed By: #### L 506.1000, L501.9985, L501.9520 #### [facility] [address] [place], [address] CBC W/Diff, Automatedon 03-30 Absolute Lymph 2.94 X10 3/uL Normal 0.83-4.51 [facility] Comment on above: Order Comment: Order Date: 04/11/24 Order Info: [id number] - CBCD Performed By: #### L 500.4050, L501.9520, L500.4100, L506.1000, L100.0100 #### [facility] [address] [place], [address] Absolute Neut 4.5 X10 3/uL Normal 2.0-7.7 [facility] Comment on above: Order Comment: Order Date: 04/11/24 Order Info: [id number] - CBCD Performed By: #### L 500.4050, L501.9520, L500.4100, L506.1000, L100.0100 #### [facility] [address] [place], [address] Basophils/100 WBC (Bld) 0.7 % Normal 0-1 [facility] Comment on above: Order Comment: Order Date: 04/11/24 Order Info: [id number] - CBCD Performed By: #### L 500.4050, L501.9520, L500.4100, L506.1000, L100.0100 #### [facility] [address] [place], [address] Eosinophils/100 WBC (Bld) 2.0 % Normal 0-5 [facility] Comment on above: Order Comment: Order Date: 04/11/24 Order Info: [id number] - CBCD Performed By: #### L 500.4050, L501.9520, L500.4100, L506.1000, L100.0100 #### [facility] [address] [place], [address] Erythrocyte distribution width (RBC) [Ratio] 14.1 % Normal 11.6-14.6 [facility] Comment on above: Order Comment: Order Date: 04/11/24 Order Info: [id number] - CBCD Performed By: #### L 500.4050, L501.9520, L500.4100, L506.1000, L100.0100 #### [facility] [address] [place], [address] Hematocrit (Bld) [Volume fraction] 40.4 % Normal 37-47 [facility] Comment on above: Order Comment: Order Date: 04/11/24 Order Info: [id number] - CBCD Performed By: #### L 500.4050, L501.9520, L500.4100, L506.1000, L100.0100 #### [facility] [address] [place], [address] Hemoglobin (Bld) [Mass/Vol] 13.3 g/dL Normal 12.0-15.0 [facility] Comment on above: Order Comment: Order Date: 04/11/24 Order Info: [id number] - CBCD Performed By: #### L 500.4050, L501.9520, L500.4100, L506.1000, L100.0100 #### [facility] [address] [place], [address] IG% 0.200 Normal 0.0-0.9 [facility] Comment on above: Order Comment: Order Date: 04/11/24 Order Info: [id number] - CBCD Result Comment: IG% - Immature Granulocytes (promyelocytes, myelocytes and metamyelocytes) > 1% indicates that a LEFT SHIFT is Present. Performed By: #### L 500.4050, L501.9520, L500.4100, L506.1000, L100.0100 #### [facility] [address] [place], [address] Lymphocytes/100 WBC (Bld) 36.4 % Normal 19-41 [facility] Comment on above: Order Comment: Order Date: 04/11/24 Order Info: [id number] - CBCD Performed By: #### L 500.4050, L501.9520, L500.4100, L506.1000, L100.0100 #### [facility] [address] [place], [address] MCH (RBC) [Entitic mass] 29.3 pg Normal 27.0-32.0 [facility] Comment on above: Order Comment: Order Date: 04/11/24 Order Info: [id number] - CBCD Performed By: #### L 500.4050, L501.9520, L500.4100, L506.1000, L100.0100 #### [facility] [address] [place], [address] MCHC (RBC) [Mass/Vol] 32.9 g/dL Normal 32-36 [facility] Comment on above: Order Comment: Order Date: 04/11/24 Order Info: [id number] - CBCD Performed By: #### L 500.4050, L501.9520, L500.4100, L506.1000, L100.0100 #### [facility] [address] [place], [address] MCV (RBC) [Entitic vol] 89.0 fL Normal 81-99 [facility] Comment on above: Order Comment: Order Date: 04/11/24 Order Info: 018- - CBCD Performed By: #### L 500.4050, L501.9520, L500.4100, L506.1000, L100.0100 #### [facility] [address] [place], [address] Monocytes/100 WBC (Bld) 5.2 % Normal 0-10 [facility] Comment on above: Order Comment: Order Date: 04/11/24 Order Info: 018- - CBCD Performed By: #### L 500.4050, L501.9520, L500.4100, L506.1000, L100.0100 #### [facility] [address] [place], [address] Neutrophils/100 WBC (Bld) 55.5 % Normal 47-70 [facility] Comment on above: Order Comment: Order Date: 04/11/24 Order Info: [id number] - CBCD Performed By: #### L 500.4050, L501.9520, L500.4100, L506.1000, L100.0100 #### [facility] [address] [place], [address] Nucleated RBC (Bld) [#/Vol] 0 10*3/uL Normal 0-5 [facility] Comment on above: Order Comment: Order Date: 04/11/24 Order Info: [id number] - CBCD Performed By: #### L 500.4050, L501.9520, L500.4100, L506.1000, L100.0100 #### [facility] [address] [place], [address] Platelet mean volume (Bld) [Entitic vol] 10.7 fL Normal 6.2-12.0 [facility] Comment on above: Order Comment: Order Date: 04/11/24 Order Info: 0184- - CBCD Performed By: #### L 500.4050, L501.9520, L500.4100, L506.1000, L100.0100 #### [facility] [address] [place], [address] Platelets (Bld) [#/Vol] 336 10*3/uL Normal 150-450 [facility] Comment on above: Order Comment: Order Date: 04/11/24 Order Info: 0184- - CBCD Performed By: #### L 500.4050, L501.9520, L500.4100, L506.1000, L100.0100 #### [facility] [address] [place], [address] RBC (Bld) [#/Vol] 4.54 10*6/uL Normal 4.2-5.4 [facility] Comment on above: Order Comment: Order Date: 04/11/24 Order Info: [id number] - CBCD Performed By: #### L 500.4050, L501.9520, L500.4100, L506.1000, L100.0100 #### [facility] [address] [place], [address] RDW SD 45.2 fl High 35.1-43.9 [facility] Comment on above: Order Comment: Order Date: 04/11/24 Order Info: [id number] - CBCD Performed By: #### L 500.4050, L501.9520, L500.4100, L506.1000, L100.0100 #### [facility] [address] [place], [address] WBC (Bld) [#/Vol] 8.1 10*3/uL Normal 4.4-11.0 [facility] Comment on above: Order Comment: Order Date: 04/11/24 Order Info: [id number] - CBCD Performed By: #### L 500.4050, L501.9520, L500.4100, L506.1000, L100.0100 #### [facility] [address] [place], [address] Comprehensive Metabolic Prof [facility] 04-23-2024 Albumin [Mass/Vol] 3.5 g/dL Normal 3.2-5.0 [facility] Comment on above: Order Comment: Order Date: 04/11/24 Order Info: [id number] - CMP Order Info: [id number] - LIPID Order Info: [id number] - TSH Performed By: #### L 500.4050, L501.9520, L500.4100, L506.1000, L100.0100 #### [facility] [address] [place], [address] Albumin/Globulin [Mass ratio] 0.9 {ratio} Normal 0.9-2.4 [facility] Comment on above: Order Comment: Order Date: 04/11/24 Order Info: [id number] - CMP Order Info: [id number] - LIPID Order Info: [id number] - TSH Performed By: #### L 500.4050, L501.9520, L500.4100, L506.1000, L100.0100 #### [facility] [address] [place], [address] ALK P 83 U/L Normal 45-117 [facility] Comment on above: Order Comment: Order Date: 04/11/24 Order Info: 0786- - CMP Order Info: [id number] - LIPID Order Info: 3 - TSH Performed By: #### L 500.4050, L501.9520, L500.4100, L506.1000, L100.0100 #### [facility] [address] [place], [address] ALT [Catalytic activity/Vol] 22 U/L Normal 13-56 [facility] Comment on above: Order Comment: Order Date: 04/11/24 Order Info: 785- - CMP Order Info: [id number] - LIPID Order Info: 3 - TSH Performed By: #### L 500.4050, L501.9520, L500.4100, L506.1000, L100.0100 #### [facility] [address] [place], [address] AST [Catalytic activity/Vol] 15 U/L Normal 15-37 [facility] Comment on above: Order Comment: Order Date: 04/11/24 Order Info: 0786 - CMP Order Info: [id number] - LIPID Order Info: [id number] - TSH Performed By: #### L 500.4050, L501.9520, L500.4100, L506.1000, L100.0100 #### [facility] [address] [place], [address] Bilirubin [Mass/Vol] 1.00 mg/dL Normal 0.20-1.00 [facility] Comment on above: Order Comment: Order Date: 04/11/24 Order Info: [id number] - CMP Order Info: [id number] - LIPID Order Info: 3 - TSH Result Comment: For patients on eltrombopag therapy, use of Dimension Rives TBIL is not recommended. Performed By: #### L 500.4050, L501.9520, L500.4100, L506.1000, L100.0100 #### [facility] [address] [place], [address] BUN/CRE 20.1 RATIO High 10-20 [facility] Comment on above: Order Comment: Order Date: 04/11/24 Order Info: 0786- - CMP Order Info: [id number] - LIPID Order Info: [id number] - TSH Performed By: #### L 500.4050, L501.9520, L500.4100, L506.1000, L100.0100 #### [facility] [address] [place], [address] CA,Total 9.3 mg/dL Normal 8.5-10.1 [facility] Comment on above: Order Comment: Order Date: 04/11/24 Order Info: [id number] - CMP Order Info: [id number] - LIPID Order Info: [id number] - TSH Performed By: #### L 500.4050, L501.9520, L500.4100, L506.1000, L100.0100 #### [facility] [address] [place], [address] Chloride [Moles/Vol] 110 mmol/L High 98-107 [facility] Comment on above: Order Comment: Order Date: 04/11/24 Order Info: 0786 - CMP Order Info: [id number] - LIPID Order Info: [id number] - TSH Performed By: #### L 500.4050, L501.9520, L500.4100, L506.1000, L100.0100 #### [facility] [address] [place], [address] CO2 [Moles/Vol] 25.0 mmol/L Normal 21.0-32.0 [facility] Comment on above: Order Comment: Order Date: 04/11/24 Order Info: 0786- - CMP Order Info: [id number] - LIPID Order Info: [id number] - TSH Performed By: #### L 500.4050, L501.9520, L500.4100, L506.1000, L100.0100 #### [facility] [address] [place], [address] Creatinine [Mass/Vol] 0.94 mg/dL Normal 0.55-1.02 [facility] Comment on above: Order Comment: Order Date: 04/11/24 Order Info: [id number] - CMP Order Info: [id number] - LIPID Order Info: [id number] - TSH Result Comment: The validity of the calculated GFR GFRAA in patients over 70 years has not been determined. Clinical correlation is essential. Performed By: #### L 500.4050, L501.9520, L500.4100, L506.1000, L100.0100 #### [facility] [address] [place], [address] EST GFR - AA 77 mL/min Normal >60 [facility] Comment on above: Order Comment: Order Date: 04/11/24 Order Info: [id number] - CMP Order Info: [id number] - LIPID Order Info: 3 - TSH Result Comment: Afri can Swiss GFR Calc Performed By: #### L 500.4050, L501.9520, L500.4100, L506.1000, L100.0100 #### [facility] [address] [place], [address] GAP 6 Normal 5-15 [facility] Comment on above: Order Comment: Order Date: 04/11/24 Order Info: 07- - CMP Order Info: [id number] - LIPID Order Info: 3 - TSH Performed By: #### L 500.4050, L501.9520, L500.4100, L506.1000, L100.0100 #### [facility] [address] [place], [address] GFR/1.73 sq M.predicted among non-blacks MDRD (S/P/Bld) [Vol rate/Area] 64 mL/min/{1.73_m2} Normal >60 [facility] Comment on above: Order Comment: Order Date: 04/11/24 Order Info: 785- - CMP Order Info: [id number] - LIPID Order Info: [id number] - TSH Result Comment: Non- GFR Calc Performed By: #### L 500.4050, L501.9520, L500.4100, L506.1000, L100.0100 #### [facility] [address] [place], [address] Globulin (S) [Mass/Vol] 3.8 g/dL Normal 2.2-4.2 [facility] Comment on above: Order Comment: Order Date: 04/11/24 Order Info: 07 - CMP Order Info: - LIPID Order Info: [id number] - TSH Performed By: #### L 500.4050, L501.9520, L500.4100, L506.1000, L100.0100 #### [facility] [address] [place], [address] Glucose [Mass/Vol] 109 mg/dL High 74-106 [facility] Comment on above: Order Comment: Order Date: 04/11/24 Order Info: 07 - CMP Order Info: - LIPID Order Info: [id number] - TSH Result Comment: Fast ing Glucose result from 100 to 125 mg/dL suggests IMPAIRED HOMEOSTASIS per A.D.A. criteria. Performed By: #### L 500.4050, L501.9520, L500.4100, L506.1000, L100.0100 #### [facility] [address] [place], [address] Potassium [Moles/Vol] 3.9 mmol/L Normal 3.5-5.1 [facility] Comment on above: Order Comment: Order Date: 04/11/24 Order Info: 0786 - CMP Order Info: [id number] - LIPID Order Info: 3015-10 - TSH Performed By: #### L 500.4050, L501.9520, L500.4100, L506.1000, L100.0100 #### [facility] [address] [place], [address] Sodium [Moles/Vol] 141 mmol/L Normal 136-145 [facility] Comment on above: Order Comment: Order Date: 04/11/24 Order Info: 07 - CMP Order Info: [id number] - LIPID Order Info: [id number] - TSH Performed By: #### L 500.4050, L501.9520, L500.4100, L506.1000, L100.0100 #### [facility] [address] [place], [address] T PROT 7.3 g/dL Normal 6.4-8.2 [facility] Comment on above: Order Comment: Order Date: 04/11/24 Order Info: 07 - CMP Order Info: [id number] - LIPID Order Info: [id number] - TSH Performed By: #### L 500.4050, L501.9520, L500.4100, L506.1000, L100.0100 #### [facility] [address] [place], [address] Urea nitrogen [Mass/Vol] 19 mg/dL High 7-18 [facility] Comment on above: Order Comment: Order Date: 04/11/24 Order Info: 0786 - CMP Order Info: [id number] - LIPID Order Info: [id number] - TSH Performed By: #### L 500.4050, L501.9520, L500.4100, L506.1000, L100.0100 #### [facility] [address] [place], [address] Lipid Profileon 04-23-2024 Cholesterol [Mass/Vol] 230 mg/dL High 200 [facility] Comment on above: Order Comment: Order Date: 04/11/24 Order Info: 0786- - CMP Order Info: [id number] - LIPID Order Info: 3015-10 - TSH Result Comment: <200 mg/dL Desirable 200-240 mg/dL Borderline >240 mg/dL High Risk Performed By: #### L 500.4050, L501.9520, L500.4100, L506.1000, L100.0100 #### [facility] [address] [place], [address] Cholesterol in HDL [Mass/Vol] 52 mg/dL Normal [facility] Comment on above: Order Comment: Order Date: 04/11/24 Order Info: 0786-1 - CMP Order Info: [id number] - LIPID Order Info: [id number] - TSH Result Comment: The drugs N-Acetylcysteine and Metamizole may falsely depress this assay. Reference Range HDL <40 mg/dL Low HDL Cholesterol HDL >or= 60 mg/dL High HDL Cholesterol Performed By: #### L 500.4050, L501.9520, L500.4100, L506.1000, L100.0100 #### [facility] [address] [place], [address] Cholesterol in LDL [Mass/Vol] 155 mg/dL High 0-130 [facility] Comment on above: Order Comment: Order Date: 04/11/24 Order Info: 0786- - CMP Order Info: [id number] - LIPID Order Info: 3016-3 - TSH Performed By: #### L 500.4050, L501.9520, L500.4100, L506.1000, L100.0100 #### [facility] [address] [place], [address] Cholesterol in VLDL [Mass/Vol] 23 mg/dL Normal 5-40 [facility] Comment on above: Order Comment: Order Date: 04/11/24 Order Info: 0786-1 - CMP Order Info: [id number] - LIPID Order Info: 3016-3 - TSH Performed By: #### L 500.4050, L501.9520, L500.4100, L506.1000, L100.0100 #### [facility] [address] [place], [address] Triglyceride [Mass/Vol] 116 mg/dL Normal [facility] Comment on above: Order Comment: Order Date: 08/14/24 Order Info: 0786-1 - CMP Order Info: [id number] - LIPID Order Info: [id number] - TSH Result Comment: The drugs N-Acetylcysteine and Metamizole may falsely depress this assay. Serum Triglycerides Reference Interval Normal <150 mg/dL Borderline high 150 - 199 mg/dL High 200 - 499 mg/dL Very High > or = 500 mg/dL Performed By: #### L 500.4050, L501.9520, L500.4100, L506.1000, L100.0100 #### [facility] [address] [place], [address] Thyroid Stim Hormone (TSH)on 04-23-2024 TSH 4.510 uIU/mL High 0.358-3.740 [facility] Comment on above: Order Comment: Order Date: 04/11/24 Order Info: 0786-1 - CMP Order Info: [id number] - LIPID Order Info: [id number] - TSH Performed By: #### L 500.4050, L501.9520, L500.4100, L506.1000, L100.0100 #### [facility] [address] [place], [place], [address] Vitamin D,25 Hydroxyon 04-23 Vitamin D 25-OH 28.2 ng/mL Normal [facility] Comment on above: Order Comment: Order Date: 04/11/24 Order Info: [id number] - VITD25 Result Comment: Mariana min D 25(OH) Status Range Deficiency <20 ng/mL (50nmol/L) Insufficiency 20 - 30 ng/mL (50 - 75 nmol/L) Sufficiency 30 - 100 ng/mL (75 - 250 nmol/L) Toxicity >100 ng/mL (>250 nmol/L) Performed By: #### L 500.4050, L501.9520, L500.4100, L506.1000, L100.0100 #### [facility] [address] [place], [address] NCS and/or EMG Patienton NCS and/or EMG Patient [facility] Pulmonary Services/Neurology [address] [place] [address] MR#: [id number] Acct: [id number] Name: MAGGIE MASON Rep #: [id number] : 1960 63 From: Sana Dahl MD Referring Dr: Vicenta Ragsdale DO Status: REG C LI Location: N Date: 11/16/23 Sex: F C NCS and/or EMG Patient Report Ordering Doctor: Vicenta Ragsdale DATE OF SERVICE: 11/16/23 Maggie presents for electrodiagnostic testing of the right upper limb. She reports intermittent numbness and tingling in the right hand. Electrodiagnostic findings: Right median motor nerve demonstrates normal distal latency, amplitude and conduction velocity. Right ulnar motor responses within normal limits, including conduction across the elbow. Sensory responses are normal. Normal median and ulnar F???waves. Needle EMG testing was performed in the right upper limb. All muscles tested showed no evidence of denervation with normal motor unit action potentials. Electrodiagnostic impression: This a normal electrodiagnostic study of the right upper limb. There is no electrodiagnostic evidence for peripheral neuropathy, including carpal tunnel or cubital tunnel syndrome. There is no electrodiagnostic evidence for cervical radiculopathy. Multi Select Codes Neurology Neurology Interp Codes: 80413-44 Musc test done w/n test comp (interp) and 22078-63 Nrv cndj test 7- 8 studies (interp) 11/16/23 1148 Date Sana Dahl MD CC: Dr. Sana Dahl MD; Vicenta Ragsdale DO Date Dictated: 11/16/23 1146 Date Transcribed: 11/16/23 114 Relay Shop Tester: KUNAL Signed Normal [facility] Office Visiton 08-17-2022 Follow-up visit [id number] Maggie Mason Tristan 1960 F Date Provider Department Center 08/17/2022 [id number] MORENO [facility] OB MG OB Offi Family History Problem Relation Age of Onset Stroke Father Arthritis Mother Cancer Sister Comments: colon cancer Family Status - Relation Status Age at Father Mother Sister Alive Level of Service:68471 SD OFFICE/OUTPATIENT ESTABLISHED LOW [facility] 20-29 MIN Reason for Visit and Comments: Follow-up [739696] Normal [facility] Progress Noteon 08-17-2022 Progress Note Pt here for F/U US. Denies any VB or abdominal pain. On US all fibroids have remianed stable. The bilateral ovarian cysts have also remained stable. BP 122/61 Pulse 66 Past Medical History: Diagnosis Date Anxiety Cancer (CMS/HCC) breast Depression GERD (gastroesophageal reflux disease) Past Surgical History: Procedure Laterality Date CHOLECYSTECTOMY COLONOSCOPY 2020 repeat in 5 yrs. had a couple polyps COLONOSCOPY HYSTEROSCOPY 05/06/2017 with D&C, polypectomy with myosure HYSTEROSCOPY 05/06/2017 with polypectomy MASTECTOMY Bilateral ROTATOR CUFF REPAIR Right 2020 Assessment: Diagnosis Plan 1. Bilateral ovarian cysts 2. Fibroids Plan: Repeat US in 6mo w/ annual exam. As above. MDM 2 stable chronic problems US reviewed and scheduled. Minimal risk. Normal 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 US PELVIS TRANSVAGINALon US PELVIS TRANSVAGINAL Gynecological Report (Signed Final 08/17/2022 01:41 pm) PATIENT INFO: ID #: [id number] : [birth year] (62 yrs)(F) Name: MAGGIE MASON Visit Date: 08/17/2022 10:38 am PERFORMED BY: Attending: Kayden Elam MD Performed By: Romelia Crockett RDMS Referred By: DARRYL MORENO MD Location[place] [facility] [place] [facility] [place] SERVICE(S) PROVIDED: University Relations Director Transvaginal [id number] INDICATIONS: Bilateral ovarian cysts - N83.201, N83.202 Fibroids - D21.9 History of breast cancer - Z85.3 Use of tamoxifen (Nolvadex) - Z79.810 TECHNIQUE/SCAN QUALITY: Technique: Transvaginal Approach HISTORY: Age: 62 Menses: Postmenopausal HX COMMENTS: Non latex cover used. UTERUS: Uterus: Present Position: Anteverted Size (cm) L: 5.81 W: 4.02 H: 2.9 Description: The uterine echogenicity appears mottled. There are two masses within the uterine parenchyma, most likely fibroids. MYOMAS: Site L(cm) W(cm) D(cm) Location Anterior left body 1.51 1.58 1.38 Subserosal (hyperechoic) Anterior right body 0.86 0.9 0.72 Subserosal (hypoechoic Blood Flow RI PI Comments On 01/19/22, these masses measured 1.6 x 1.7 x 1.5 cm (left) and 0.8 x 0.9 x 0.7 cm (right). Blood Flow RI PI Comments ENDOMETRIUM: Endometrium: Visualized Thickness(mm): 4.74 Comment: The endometrium appears heterogeneous. CERVIX: Normal appearance CUL-DE-SAC: No free fluid was visualized RIGHT OVARY: Status: Visualized Size (cm) L: 2.31 W: 1.82 H: 1.53 Vol (ml): 3.37 Comment: The right ovary again has a 1.35 x 1.29 x 1.32 cm solid-appearing, heterogeneous mass on the anterior pole. This measured 1.35 x 1.4 x 1.35 cm 01/19/22. LEFT OVARY: Status: Visualized Size (cm) L: 3.37 W: 1.97 H: 2.17 Vol (ml): 7.54 Comment: The left ovary again has a 2.65 x 1.82 x 1.91 cm simple appearing cyst on the inferior pole. This measured 1.95 x 1.86 x 2.01 cm 01/19/22. Kayden Elam MD Electronically Signed Final Report 08/17/2022 01:41 pm IMPRESSION: Probable uterine fibroids, as noted above. These have remained stable in size since 01/19/22. The endometrium measures 4.74 mm and appears heterogeneous. The right ovary again has a 1.35 x 1.29 x 1.32 cm solid- appearing, heterogeneous mass on the anterior pole. This measured 1.35 x 1.4 x 1.35 cm 01/19/22. This was also present on U/S exams from 2018 and 2017. This may represent a dermoid vs. an endometrioma vs. an ovarian neoplasm. The left ovary again has a 2.65 x 1.82 x 1.91 cm simple appearing cyst on the inferior pole. This measured 1.95 x 1.86 x 2.01 cm 01/19/22. Clinical correlation is recommended. The patient is scheduled to see Dr. Moreno following ultrasound. *Ultrasound cannot detect all pelvic or FURNITURE SPRAYER abnormalities and normal findings cannot guarantee the absence of a problem.* Normal [facility] SURGICAL PATHOLOGYon CASE REPORT Normal [facility] Comment on above: Order Comment: Speci men Type: TISSUE SPECIMENOrdering Facility: [facility] Address: [address], [place] [address] Result Comment: [facility] Pathology Report Case: [id number] Authorizing Provider: Karson Garcia Collected: 08/03/2022 09:55 AM Ordering Location: [facility] Received: 08/03/2022 07:11 PM Pathologist: Taylor Johnson MD Specimen: SKIN SHAVE BIOPSY, R anterior lower leg Performed By: #### S ####[facility] LABCLIA [id number] [place] [address] [place] CLINICAL HISTORY r/o SCC (or BCC) vs. chronic (>2 mos) inflammed crusted SK. Normal [facility] Comment on above: Order Comment: Speci men Type: TISSUE SPECIMENOrdering Facility: [facility] Address: [address] [place] [address] Performed By: #### S ####[facility] LABCLIA [id number] [address] [place] FINAL DIAGNOSIS Normal [facility] Comment on above: Order Comment: Speci men Type: TISSUE SPECIMENOrdering Facility: [facility] Address: [address] [place] [address] Result Comment: A. S kin, right anterior lower leg, shave biopsy: -Inflamed seborrheic keratosis. WFB/CK 08/04/2022 Performed By: #### S ####[facility] LABCLIA [id number] [address] [place] FINAL PERFORMING LAB Normal [facility] Comment on above: Order Comment: Speci men Type: TISSUE SPECIMENOrdering Facility: [facility] Address: [address] [place] [address] Result Comment: Diag nostic interpretation performed at [facility], [address] [place] [address] CLIA# [id number] Accounting Auditor: Roman Leal M.D. Performed By: #### S ####[facility] LABCLIA [id number] [place] [address] [place] GROSS DESCRIPTION Normal [facility] Comment on above: Order Comment: Speci men Type: TISSUE SPECIMENOrdering Facility: [facility] Address: [address] [place] [address], [place] [id number] Result Comment: A. S KIN SHAVE BIOPSY Received in formalin is a 1.2 x 1.0 x 0.3 cm shave of skin. On the skin surface there is a 1.2 cm wallace-brown and slightly elevated area. The specimen is bisected. Totally submitted in one cassette. SS August 03, 2022 11:23 PM Gross examination performed at [facility], [address] [place] [address] Performed By: #### S ####[facility] LABCLIA [id number] [address] [id number] CNOVon 01-01-2022 CNOV Office Visit (DANIEL ) ----- MAGGIE MASON ([id number]) 1960 F Date Time Provider Department 01/01/22 12:15 PM MERON DE LEON During your visit today, we recorded the following information about you: Meron De Leon DO 01/01/2022 12:43 PM Signed Follow Up Visit Chief Complaint Maggie Mason is a 61 year old female who presents today for follow up office visit. Patient presents with: Right Shoulder - Follow Up, Pain History of Present Illness PAIN EVALUATION 01/01/2022 1214 Pain Level: 1 Pain Location: Shoulder-Right Description: Aching;Dull;Sore Duration Amount of Time: ? ongoing Frequency: Intermittent Intervention/Comfort measure: Reposition;Relaxation;Med ication cortisone injection HPI: Maggie Mason is a 61 year old female for a follow up visit right shoulder pain. Had a recent shoulder injection by Dr. Heck which is giving a lot of relief and helping with ROM. Got approved more PT visits to help with ROM as well. Pain history is noted as above. Denies numbness, tingling, fever, chills or other constitutional symptoms. Is there any overall improvement in your condition? Yes, injection and PT Any new injury, since being seen last: No REVIEW OF SYMPTOMS: Patient did not have, and does not currently have, any weight loss, malaise, fever, chills, headache, chest pain, chest pressure, palpitations, cough, shortness of breath, orthopnea, paroxsymal nocturnal dyspnea, nausea, vomiting, diarrhea, constipation, melena, hematochezia, urinary difficulties, prolonged bleeding, easily bruising, heat or cold intolerance, new onset joint pain or swelling, new onset extremity weakness or numbness, new onset auditory or visual disturbances, lightheadedness, dizziness, partial loss of consciousness or full loss of consciousness. Current Outpatient Medications Medication Sig - QUEtiapine (SEROQUEL) 25 mg tablet Take 25 mg by mouth. No current facility-administered medications for this visit. Physical Exam Vitals: There were no vitals taken for this visit. Psych: Pleasant, good affect and mood General Appearance: Well appearing, alert, in no acute distress, well-hydrated, well nourished.. Skin: Skin color, texture, turgor normal, no suspicious rashes or lesions. Peripheral Pulses: Normal. Neurologic: Gait normal. Reflexes normal and symmetric. Sensation grossly intact.. Lymph Nodes: No cervical lymphadenopathy, No supraclavicular lymphadenopathy, No axillary lymphadenopathy. and No inguinal lymphadenopathy.. Respiratory: No recent pulmonary infection, hemoptysis, chronic cough, or shortness of breath at rest Rheumatologic: Joint deformities: Right shoulder pain Right Shoulder Exam Tenderness The patient is experiencing no tenderness. Range of Motion Active abduction: 130 abnormal Passive abduction: abnormal Extension: normal External rotation: abnormal Forward flexion: normal Internal rotation 0 degrees: normal Internal rotation 90 degrees: normal Muscle Strength Abduction: 5/5 Internal rotation: 5/5 External rotation: 5/5 Supraspinatus: 5/5 Subscapularis: 5/5 Biceps: 5/5 Tests Apprehension: negative Thapa test: negative Cross arm: negative Impingement: negative Other Erythema: absent Sensation: normal Pulse: present Comments: Med,uln,rad nerves intact Better ROM Left Shoulder Exam Left shoulder exam is normal. Tenderness The patient is experiencing no tenderness. Range of Motion Active abduction: normal Passive abduction: normal Extension: normal External rotation: normal Forward flexion: normal Internal rotation 0 degrees: normal Internal rotation 90 degrees: normal Muscle Strength Abduction: 5/5 Internal rotation: 5/5 External rotation: 5/5 Supraspinatus: 5/5 Subscapularis: 5/5 Biceps: 5/5 Tests Apprehension: negative Thapa test: negative Cross arm: negative Impingement: negative Other Erythema: absent Sensation: normal Pulse: present Assessment and Plan Radiographs: No imaging to review. Impression: Encounter Diagnosis ICD-10-CM 1. Adhesive capsulitis of right shoulder M75.01 starting PT Tuesday Happy with injection right shoulder Much improved, will follow peripherally If has issues, will call- Take otc nsaids on as needed basis Today, in detail, through a thorough evaluation, we discussed possible etiologies of pain and our plans for further diagnostic and therapeutic interventions. We discussed strategies for decreasing pain and improving strength, stability and motion. Patient's questions were answered in detailed. Patient verbalizes understanding and agrees with the treatment plan as discussed. Referring Provider: SELF [200] Allergies As of Date: 01/01/2022 (No Known Allergies) Date Reviewed: 01/01/2022 Reviewed by: Meron De Leon DO - Fully Assess (more content not included)... Normal [facility] CNOVon 12-25-2021 CNOV Office Visit (SPHTB) ----- MAGGIE MASON ([id number]) 1960 F Date Time Provider Department 12/25/21 8:15 AM GUS HECK SPHTB During your visit today, we recorded the following information about you: Gus Heck DO 12/25/2021 10:47 AM Signed [facility] DEPARTMENT OF ORTHOPAEDIC SURGERY OFFICE VISIT DOCUMENTATION NOTE ASSESSMENT AND PLAN DIAGNOSIS: (M75.01) Adhesive capsulitis of right shoulder (primary encounter diagnosis) Today, in detail, through a thorough evaluation, we discussed possible etiologies of pain and our plans for further diagnostic and therapeutic interventions. We discussed strategies for decreasing pain and improving strength, stability and motion. Patient's questions were answered in detailed. Patient verbalizes understanding and agrees with the treatment plan as discussed. - Pt had been doing well with PT but she no longer has coverage for this. I would greatly recommend that we continue with physical therapy to avoid any relapse in progress made, further pain, limiting motion and loss of ability to return back to full duty. - Had significant improvement with previous injection 4 months ago. Risks, benefits, and indications for corticosteroid injections discussed. Injection performed as detailed in the procedure note below. A C9 has been submitted to request approval for physical therapy. The patient has voiced understanding that the [place] of [employer]' Compensation ([employer]) will need to first make judgement upon, and approve, these additional treatments, before we can proceed with scheduling. The patient has voiced understanding of this process and they have been given contact information on how to inquire about the progress of this claim. Haydee Morrison MD Primary Care Sports Medicine Fellow PGY-4 In addition to the comprehensive evaluation as outlined above and as a separate element to the visit today, we have made the determination to proceed with an injection to aid in the treatment of the patient's condition. We discussed risks, benefits, alternatives and expected outcomes of this injection in detail and the patient agreed to proceed. The procedure was performed as detailed below. Large Joint Arthro/Inj: R glenohumeral Informed Consent Consent Obtained: Verbal [place] Protocol A moment to CARE was completed. SIGN IN Personnel directly involved with the procedure wore the appropriate PPE. Patient/Surrogate Stated/Verified: Patient name, Date of , Relevant allergies and Intended procedure TIME OUT Intended patient and procedure match the source document(s). Consent documented and matches the intended procedure. Relevant labs, photos, and/or imaging studies have been reviewed. Correct side/site marked and visible. Medications required for procedure verified. 12/25/2021 10:47 AM The procedure site was prepped in the usual sterile fashion. Site: R glenohumeral Details:Musculoskeletal ultrasound was utilized to successfully localize placement of the injection needle at the appropriate site. Ultrasound images demonstrating local vasculature and demonstrating injection of solution were saved. Medications: 40 mg triamcinolone acetonide 40 mg/mL; 5 mL NaCl (PF) 0.9% Anesthetics: 3 mL ropivacaine (PF) 5 mg/mL (0.5 %) Outcome: Tolerated well, no immediate complications Post-injection instructions were reviewed with the patient and the patient voiced understanding of these instructions. SIGN OUT Post-procedure follow-up management communicated and Plan of Care Visit completed when applicable TEACHING PHYSICIAN STATEMENT: I personally saw and evaluated the patient today. I personally obtained the caldwell and critical portions of the history and physical exam. I reviewed the resident's documentation and discussed the patient with the resident. I agree with the resident's medical decision-making as documented. Gus Heck D.O. Sports Medicine and Medical Orthopaedics [facility] CHIEF COMPLAINT / REASON FOR VISIT Maggie Mason is a 61 year old female who presents today for a follow-up evaluation of following complaint: Patient presents with: Right Shoulder - Established Patient HISTORY OF PRESENT ILLNESS (HPI) PAIN EVALUATION 12/25/2021 0809 Pain Level: 1 Pain Location: Shoulder-Right Description: Aching Duration Amount of Time: 4 Duration Units: Months Frequency: Intermittent Intervention/Comfort measure: Medication Has there been any overall improvement in your condition? Yes, Any new injury, since being seen last? No Pt was last seen by Dr. Heck 08/19 with CSI to with significant improvement for ~8-10 weeks. She had been going to PT with improvement until 3 weeks ago when it was denied. Does have improvement in motion. Review of S (more content not included)... Normal [facility] CNPNon 12-07-2021 CNPN Telephone (DANIEL) ----- MAGGIE MASON ([id number]) 1960 F Date Time Provider Department 12/07/21 GUS HECK During your visit today, we recorded the following information about you: [place] [facility] 12/07/2021 3:19 PM Signed Please contact the patient to schedule a [facility] approved ultrasound guided right shoulder injection with Dr. Heck as a Dr. De Leon referral. Dariana Pearce [facility] [place] 12/07/2021 4:22 PM Signed Asking for an appointment for injection , the referral expires 01/13/2022 Clarissa Montoya 12/10/2021 9:37 AM Signed Patient is scheduled on 12/25, with Dr. Heck. Allergies As of Date: 12/07/2021 (No Known Allergies) Date Reviewed: 11/06/2021 Reviewed by: Meron De Leon DO - Fully Assessed Reason for Visit: Appointment [186] Prescriptions as of 12/10/2021 - QUEtiapine (SEROQUEL) 25 mg tablet Take 25 mg by mouth. Problem List As Of Date: 12/07/2021 (None) Encounter Status:Closed by CLARISSA MONTOYA on 12/10/21 [facility] 11-06-2021 CNMICHELLE Office Visit (ORMDNA ) ----- MAGGIE MASON ([id number]) 1960 F Date Time Provider Department 11/06/21 11:30 AM MERON DE LEON During your visit today, we recorded the following information about you: Meron De Leon DO 11/07/2021 7:53 AM Signed Follow Up Visit Chief Complaint Maggie Mason is a 61 year old female who presents today for follow up office visit. Patient presents with: Right Shoulder - Follow Up, Pain History of Present Illness PAIN EVALUATION 11/06/2021 1206 Pain Level: 5 Pain Location: Shoulder-Right Description: Aching;Dull;Stiffness Duration Amount of Time: ? Ongoing Frequency: Continuous Intervention/Comfort measure: Reposition;Relaxation;Col d;Medication;Other: See comment physical therapy HPI: Maggie Mason is a 61 year old female for a follow up visit right shoulder pain. Just got approved last week for physical therapy, injection now has no effect on shoulder. Pain history is noted as above. Denies numbness, tingling, fever, chills or other constitutional symptoms. Has not done PT as not approved. Is there any overall improvement in your condition? No Any new injury, since being seen last: No REVIEW OF SYMPTOMS: Patient did not have, and does not currently have, any weight loss, malaise, fever, chills, headache, chest pain, chest pressure, palpitations, cough, shortness of breath, orthopnea, paroxsymal nocturnal dyspnea, nausea, vomiting, diarrhea, constipation, melena, hematochezia, urinary difficulties, prolonged bleeding, easily bruising, heat or cold intolerance, new onset joint pain or swelling, new onset extremity weakness or numbness, new onset auditory or visual disturbances, lightheadedness, dizziness, partial loss of consciousness or full loss of consciousness. Current Outpatient Medications Medication Sig - QUEtiapine (SEROQUEL) 25 mg tablet Take 25 mg by mouth. No current facility-administered medications for this visit. Physical Exam Vitals: There were no vitals taken for this visit. Psych: Pleasant, good affect and mood General Appearance: Well appearing, alert, in no acute distress, well-hydrated, well nourished.. Skin: Skin color, texture, turgor normal, no suspicious rashes or lesions. Peripheral Pulses: Normal. Neurologic: Gait normal. Reflexes normal and symmetric. Sensation grossly intact.. Lymph Nodes: No cervical lymphadenopathy, No supraclavicular lymphadenopathy, No axillary lymphadenopathy. and No inguinal lymphadenopathy.. Respiratory: No recent pulmonary infection, hemoptysis, chronic cough, or shortness of breath at rest Rheumatologic: Joint deformities: Right shoulder pain Right Shoulder Exam Tenderness The patient is experiencing tenderness in the biceps tendon. Range of Motion Active abduction: abnormal Passive abduction: abnormal Extension: abnormal External rotation: abnormal Forward flexion: abnormal Internal rotation 0 degrees: normal Internal rotation 90 degrees: abnormal Muscle Strength Abduction: 5/5 Internal rotation: 5/5 External rotation: 4/5 Supraspinatus: 4/5 Subscapularis: 4/5 Biceps: 5/5 Tests Apprehension: negative Thapa test: negative Cross arm: negative Impingement: negative Other Erythema: absent Sensation: normal Pulse: present Comments: Intact but weakness in er/ir Left Shoulder Exam Left shoulder exam is normal. Tenderness The patient is experiencing no tenderness. Range of Motion Active abduction: normal Passive abduction: normal Extension: normal External rotation: normal Forward flexion: normal Internal rotation 0 degrees: normal Internal rotation 90 degrees: normal Muscle Strength Abduction: 5/5 Internal rotation: 5/5 External rotation: 5/5 Supraspinatus: 5/5 Subscapularis: 5/5 Biceps: 5/5 Tests Apprehension: negative Thapa test: negative Cross arm: negative Impingement: negative Other Erythema: absent Sensation: normal Pulse: present Assessment and Plan Radiographs: No imaging to review. Impression: Encounter Diagnosis ICD-10-CM 1. Adhesive capsulitis of right shoulder M75.01 Was at 161 but has not done pt recently Better, still having aching and stiffness and weakness but interested in another dr injection to see if can improve final ROM bettter rom still needs to work on strength, Starting PT on Tuesday Today, in detail, through a thorough evaluation, we discussed possible etiologies of pain and our plans for further diagnostic and therapeutic interventions. We discussed strategies for decreasing pain and improving strength, stability and motion. Patient's questions were answered in detailed. Patient verbalizes understanding and agrees with the treatment plan as discussed. Referring Provider: MERON DE LEON [[id number]] Allergies As of Date: 11/06/2021 (No Known (more content not included)... Normal [facility] CNPSarah 10-20-2021 CNPN Telephone (DANIEL) ----- MAGGIE MASON ([id number]) 1960 F Date Time Provider Department 10/20/21 MERON DE LEON During your visit today, we recorded the following information about you: Kiah Diaz 10/20/2021 10:15 AM Signed Patient calling in wanting to know status of physical therapy being approved by [facility]. I informed her it was still pending, but wasn't sure if it was requested. Per pillowcase maker didn't have anything or see any requests. Please advise, Thanks! Mendy Ram [facility] [place] 10/20/2021 11:39 AM Signed Please advise. Allergies As of Date: 10/20/2021 (No Known Allergies) Date Reviewed: 09/25/2021 Reviewed by: Meron De Leon DO - Fully Assessed Reason for Visit: Patient Question [3607] Prescriptions as of 12/31/2021 - QUEtiapine (SEROQUEL) 25 mg tablet Take 25 mg by mouth. Problem List As Of Date: 10/20/2021 (None) Encounter Status:Closed by KIAH DIAZ on 12/31/21 [facility] CNOVon 09-25-2021 CNOV Office Visit (ORMDNA ) ----- MAGGIE MASON ([id number]) 1960 F Date Time Provider Department 09/25/21 8:45 AM MERON DE LEON During your visit today, we recorded the following information about you: Meron De Leon DO 09/25/2021 8:59 AM Signed Follow Up Visit Chief Complaint Maggie Mason is a 61 year old female who presents today for follow up office visit. Patient presents with: Right Shoulder - Follow Up, Pain History of Present Illness PAIN EVALUATION 09/25/2021 0845 Pain Level: 1 Pain Location: Shoulder-Right Description: Sore;Aching Duration Amount of Time: ? ongoing Frequency: Continuous Intervention/Comfort measure: Reposition;Relaxation;Col d;Medication HPI: Maggie Mason is a 61 year old female for a follow up visit right shoulder pain. Had injection with Dr. Heck 08-19-21. Gave relief. Pain history is noted as above. Denies calf pain, numbness, tingling, fever, chills or other constitutional symptoms. This is [facility]. Is there any overall improvement in your condition? Yes, increased ROM Any new injury, since being seen last: No REVIEW OF SYMPTOMS: Patient did not have, and does not currently have, any weight loss, malaise, fever, chills, headache, chest pain, chest pressure, palpitations, cough, shortness of breath, orthopnea, paroxsymal nocturnal dyspnea, nausea, vomiting, diarrhea, constipation, melena, hematochezia, urinary difficulties, prolonged bleeding, easily bruising, heat or cold intolerance, new onset joint pain or swelling, new onset extremity weakness or numbness, new onset auditory or visual disturbances, lightheadedness, dizziness, partial loss of consciousness or full loss of consciousness. Current Outpatient Medications Medication Sig - QUEtiapine (SEROQUEL) 25 mg tablet Take 25 mg by mouth. No current facility-administered medications for this visit. Physical Exam Vitals: There were no vitals taken for this visit. Psych: Pleasant, good affect and mood General Appearance: Well appearing, alert, in no acute distress, well-hydrated, well nourished.. Skin: Skin color, texture, turgor normal, no suspicious rashes or lesions. Peripheral Pulses: Normal. Neurologic: Gait normal. Reflexes normal and symmetric. Sensation grossly intact.. Lymph Nodes: No cervical lymphadenopathy, No supraclavicular lymphadenopathy, No axillary lymphadenopathy. and No inguinal lymphadenopathy.. Respiratory: No recent pulmonary infection, hemoptysis, chronic cough, or shortness of breath at rest Rheumatologic: Joint deformities: Right shoulder pain Right Shoulder Exam Tenderness The patient is experiencing tenderness in the biceps tendon. Range of Motion Active abduction: abnormal Passive abduction: abnormal Extension: abnormal External rotation: abnormal Forward flexion: abnormal Internal rotation 0 degrees: normal Internal rotation 90 degrees: normal Muscle Strength Abduction: 5/5 Internal rotation: 5/5 External rotation: 5/5 Supraspinatus: 5/5 Subscapularis: 5/5 Biceps: 5/5 Tests Apprehension: negative Thapa test: negative Cross arm: negative Impingement: negative Other Erythema: absent Sensation: normal Pulse: present Comments: Improved immensely 130 abd 30 er L3 IR Left Shoulder Exam Left shoulder exam is normal. Tenderness The patient is experiencing no tenderness. Range of Motion Active abduction: normal Passive abduction: normal Extension: normal External rotation: normal Forward flexion: normal Internal rotation 0 degrees: normal Internal rotation 90 degrees: normal Muscle Strength Abduction: 5/5 Internal rotation: 5/5 External rotation: 5/5 Supraspinatus: 5/5 Subscapularis: 5/5 Biceps: 5/5 Tests Apprehension: negative Thapa test: negative Cross arm: negative Impingement: negative Other Erythema: absent Sensation: normal Pulse: present Assessment and Plan Radiographs: No imaging to review. Impression: Encounter Diagnosis ICD-10-CM 1. Adhesive capsulitis of right shoulder M75.01 CONSULT TO PHYSICAL THERAPY Follow up in 6 weeks Cont PT, meloxicam Today, in detail, through a thorough evaluation, we discussed possible etiologies of pain and our plans for further diagnostic and therapeutic interventions. We discussed strategies for decreasing pain and improving strength, stability and motion. Patient's questions were answered in detailed. Patient verbalizes understanding and agrees with the treatment plan as discussed. Referring Provider: MERON DE LEON [[id number]] Allergies As of Date: 09/25/2021 (No Known Allergies) Date Reviewed: 09/25/2021 Reviewed by: Meron De Leon DO - Fully Assessed Reason for Visit: Follow Up [171] Pain [78] Primary Visit Diagnosis:Adhesive capsulitis of right shoulder [M75.01] Order(s):CONSULT TO PHYS (more content not included)... Normal [facility] CNOVon 08-19-2021 CNOV Office Visit (ORMDNA ) ----- MAGGIE MASON ([id number]) 1960 F Date Time Provider Department 08/19/21 2:00 PM GUS HCEK During your visit today, we recorded the following information about you: Gus Heck DO 08/19/2021 2:32 PM Signed OFFICE VISIT DOCUMENTATION NOTE Sports Medicine and Interventional Orthopaedics [facility] CHIEF COMPLAINT / REASON FOR VISIT Maggie Mason is here today at request of Dr.Anne Kimberli De Leon specifically for consultation of my opinion in regards to the chief complaint listed below. Correspondence will be shared today via the [employer] electronic health record or through regular mail, where applicable. Maggie Mason is a 61 year old female who presents today for a new evaluation of following complaint: Patient presents with: Right Shoulder - New, Pain HISTORY OF PRESENT ILLNESS (HPI) PAIN EVALUATION 08/19/2021 1359 Pain Level: 2 Pain Location: Shoulder-Right Description: Aching Duration Amount of Time: 2.5 Duration Units: Years Frequency: Intermittent Intervention/Comfort measure: Medication;Cold;Heat Maggie Mason is a 61 year old female with the presenting complaint of New and Pain of the Right Shoulder. Maggie reports a current pain level of 2 (Shoulder-Right). She describes the pain as Aching. The pain is Intermittent, and has lasted for 2.5 Years. Interventions tried include Medication,Cold,Heat. She is currently taking meloxicam. She was last seen in orthopaedic clinic for her shoulder on 08/05/2021 with Meron De Leon. No shoulder imaging is available at this time. In the past (based on all medication history on file), Maggie has tried the following anti-inflammatory medications (not necessarily for this reason for visit): meloxicam. Brief overview: right shoulder pain for 2.5 years. Carrying pans Location of pain: front of the shoulder Does anything make it worse?: Yes, using it Does anything make it better?: Yes, rest Any numbness or tingling? No Any popping, locking, or clicking? No Previous Treatments Ice: Yes Heat: Yes Brace: No NSAIDs: Yes, Ibuprofen Injections: Yes, steroid- 1 year ago- did help Surgeries: Yes, 11/2020 Physical Therapy: Yes Review of Systems Constitutional: Any recent fevers? No Gastrointestinal: Any abdominal discomfort? No Integumentary: Any recent skin changes or rashes? No Endocrine: Any diagnosis of diabetes? No EXAMINATION Vitals: There were no vitals taken for this visit. Ortho Exam Musculoskeletal examination today was very difficult to complete secondary to pain. Patient was complaining of significant pain, despite several attempts at gentle physical examination. Limited range of motion and pain did not allow any further attempts at a more accurate examination for today's visit. ASSESSMENT AND PLAN DIAGNOSIS: (M75.01) Adhesive capsulitis of right shoulder (primary encounter diagnosis) Today, in detail, through a thorough evaluation, we discussed possible etiologies of pain and our plans for further diagnostic and therapeutic interventions. We discussed strategies for decreasing pain and improving strength, stability and motion. Patient's questions were answered in detailed. Patient verbalizes understanding and agrees with the treatment plan as discussed. In addition to the comprehensive evaluation as outlined above and as a separate element to the visit today, we have made the determination to proceed with an injection to aid in the treatment of the patient's condition. We discussed risks, benefits, alternatives and expected outcomes of this injection in detail and the patient agreed to proceed. The procedure was performed as detailed below. Procedures Gus Heck DO Sports Medicine AND Interventional Orthopaedics Department of Orthopaedic Surgery [facility] Referring Provider: MERON DE LEON [[id number]] Allergies As of Date: 08/19/2021 (No Known Allergies) Date Reviewed: 08/19/2021 Reviewed by: Kasia Hu Ma - Fully Assessed Reason for Visit: New [159967] Pain [78] Primary Visit Diagnosis:Adhesive capsulitis of right shoulder [M75.01] Order(s):US SHOULDER-INJECTION RT (POC) JORGE USE ONLY [[id number]] Order #: [id number]: 1 Prescriptions as of 08/19/2021 - QUEtiapine (SEROQUEL) 25 mg tablet Take 25 mg by mouth. - meloxicam (MOBIC) 15 mg tablet Take 1 tablet by mouth once daily. Problem List As Of Date: 08/19/2021 (None) Encounter Status:Closed by GUS HECK on 08/19/21 Normal [facility] CR Hip w/ Pelvis 2 or 3 View s Righton 05-31-2017 CR Hip w/ Pelvis 2 or 3 Views Right Patient Name: MAGGIE MASON Diagnostic Radiology Exam Date/Time 05/31/2017 09:05:25 EDT Exam CR Hip w/ Pelvis 2 or 3 Views Right n Ordering Physician JES PÉREZ Accession Number [id number] CPT4 Codes 06093 () Reason For Exam pain Report RIGHT HIP CLINICAL INDICATION: Right hip pain A single AP view of the pelvis followed by AP and lateral views of the right hip were obtained. COMPARISON: None FINDINGS: No fracture or dislocation of the pelvis or right hip is identified. The right hip joint space is relatively well-preserved. The sacroiliac joints appear grossly unremarkable. No lytic or blastic bony lesions are seen. IMPRESSION: No fracture or dislocation of the pelvis or right hip. Report Dictated on Final Dictated: 05/31/2017 3:32 pm Dictating Physician: TIMO SCANLON Signed Date and Time: 05/31/2017 3:33 pm Signed by: TIMO SCANLON Transcribed Date and Time: 05/31/2017 3:32 Normal [facility] CR Shoulder 2+ Views Righton 05-31-2017 CR Shoulder 2+ Views Right Patient Name: MAGGIE MASON Diagnostic Radiology Exam Date/Time 05/31/2017 09:05:25 EDT Exam CR Shoulder 2+ Views Right Ordering Physician JES PÉREZ Accession Number [id number] CPT4 Codes 99698 () Reason For Exam pain Report RIGHT SHOULDER: CLINICAL INDICATION: Pain. TECHNIQUE: Three views COMPARISON: None. FINDINGS: There is no evidence for fracture or dislocation. The glenohumeral and acromioclavicular joints are unremarkable. No bone lesion is identified. There is no soft tissue abnormality. Surgical clips are noted in the right axilla. IMPRESSION: No bony abnormality. Report Dictated on Final Dictated: 05/31/2017 7:13 pm Dictating Physician: DONATO GARZA Signed Date and Time: 05/31/2017 7:14 pm Signed by: DONATO GARZA Transcribed Date and Time: 05/31/2017 7:13 Normal [facility] Surgical Pathologyon 017 Surgical Pathology [id number] [facility] PATHOLOGY AND LABORATORY MEDICINE [address] [place] [id number] FINAL SURGICAL PATHOLOGY REPORT ___NAME: MAGGIE MASON .O.B.: 1960 57 Y F CLARITZA NO.: [id number] PAC1O [id number] [id number] PROCEDURE 05/06/2017 DATE:SURGEON: DARRYL MORENO M.D. RECEIVED 05/06/2017 DATE:ATTENDING: DARRYL MORENO M.D. REPORT DATE: 05/09/2017 COPIES TO: DIAGNOSIS:A. UTERINE POLYP, BIOPSY - FRAGMENTS OF BENIGN ENDOMETRIAL POLYP.B. ENDOMETRIUM, CURETTINGS - FRAGMENTS OF MILDLY INFLAMED SQUAMOUS AND ENDOCERVICAL MUCOSA.NPL/NPL LIN GOMEZ MD C LINICAL INFORMATION: Abnormal uterine bleeding. Endometrial polyp.SPECIMEN: (A) POLYP (B) ENDOMETRIAL CURETTINGS GROSS DESCRIPTION:A. Uterine polyp per requisitionReceived in formalin within a cloth sac are multiple pink-tanhemorrhagic tissue segments aggregating to 1.5 x 1.0 cm. The specimenis entirely submitted in a single cassette. (bits ns, 1)B. Endometrial curettingsReceived in formalin attached to a segment of Telfa are multiplehemorrhagic segments of wallace tissue aggregating to 1.0 x 1.0 cm. Thespecimen is entirely submitted in a single cassette. (bits ns, 1) JCK/MCDDisclaimer: The following statement applies to allimmunohistochemistry, in situ hybridization, molecular studies, andimmunofluorescence testing.The use of one or more reagents in the above tests is regulated as ananalyte specific reagent (ASR). These tests were developed and theirperformance characteristics determined by the [facility]. They have not been cleared by the US Food and DrugAdministration (FDA). The FDA has determined that such clearance orapproval is not necessary.All the above immunostains were performed on paraffin embedded tissue.Appropriate positive and negative controls (where applicable) were runin parallel with the patient's specimen; these controls showed expectedstaining pattern, with acceptable intensity of staining.Immunohistochemi kinza assays have not been validated on decalcifiedtissues. Results should be interpreted with caution given the raisedpossibility of false negativity on decalcified specimens.Professional Performing Location: [place] [address]. DEPARTMENT OF PATHOLOGY AND LABORATORY MEDICINE [place], [place] [address] Normal [facility] Comment on above: Performed By: #### S UR ####Performing Lab is in report Hemogramon 05-04-2017 Erythrocyte distribution width Auto Ratio (RBC) 13.8 % Normal 11.5-14.5 [facility] Comment on above: Performed By: #### H EMOG ####[place] [address] Erythrocytes (RBC) 4.25 10*6/uL Normal 3.80-5.20 [facility] Comment on above: Performed By: #### H EMOG ####[address] [address] Hematocrit (HCT) 40.7 % Normal 35.0-47.0 [facility] Comment on above: Performed By: #### H EMOG ####[address] [address] Hemoglobin mass conc (Bld) 13.9 g/dL Normal 11.7-16.0 [facility] Comment on above: Performed By: #### H EMOG ####[place] [address] MCH 32.7 pg Normal 26.0-34.0 [facility] Comment on above: Performed By: #### H EMOG ####[address] [place] [address] MCHC mass conc (RBC) 34.1 % Normal 32.0-36.0 [facility] Comment on above: Performed By: #### H EMOG ####[address] [place] [address] MCV 95.8 fL Normal 79.0-98.0 [facility] Comment on above: Performed By: #### H EMOG ####[address] [place] [address] Platelet mean volume (PMV) 9.4 fL Normal 7.4-10.4 [facility] Comment on above: Performed By: #### H EMOG ####[address] [place] [address] Platelets 298 10*3/uL Normal 140-440 [facility] Comment on above: Performed By: #### H EMOG ####[address] [place] [address] WBC (Leukocytes) 7.3 10*3/uL Normal 3.6-10.7 [facility] Comment on above: Performed By: #### H EMOG ####[address] [place] [address] Large Joint Arthro/Inj: R gl enohumeral [facility] Encounters Encounter Date Encounter Type Care Provider Facility Start: 10-11-2024 End: 10-11-2024 ambulatory [facility] Facility:[facility] Start: 04-23-2024 End: 04-23-2024 ambulatory [facility] Facility:[facility] Start: 11-16-2023 ambulatory Sana Dahl Facility:[facility] Start: 11-16-2023 Non-patient / Non-visit DO Vicenta Ragsdale Work Phone: [facility] Start: 11-16-2023 End: 11-16-2023 ambulatory DO Vicenta Ragsdale Work Phone: [facility] Work Phone: Start: 11-16-2023 End: 11-16-2023 Patient encounter procedure DO Vicenta Ragsdale Work Phone: [facility] Services/Neurology Work Phone: Start: 11-16-2023 End: 11-16-2023 ambulatory Vicenta M Melyssa Facility:[facility] Start: 08-17-2022 End: 08-17-2022 ambulatory [facility] Start: 03-03-2022 End: 03-03-2022 Patient encounter procedure [facility]-Outpatient Bone Densitometry Start: 02-05-2022 End: 02-05-2022 Discharged Recurring [facility]-Physical Therapy Start: 01-11-2022 End: 01-11-2022 Discharged Recurring [facility]-Physical Therapy Start: 01-08-2022 Orders Only Gus Heck DO Work Phone: [facility] Comment on above: Adhesive capsulitis of right shoulder (Primary Dx) Start: 01-01-2022 End: 01-01-2022 ambulatory MERON DE LEON Facility:[facility] Start: 12-25-2021 End: 12-25-2021 ambulatory GUS HECK Facility:[facility] Start: 12-25-2021 End: 12-25-2021 Patient encounter procedure Gus Heck DO Work Phone: [facility] Comment on above: Adhesive capsulitis of right shoulder (Primary Dx) Start: 12-04-2021 End: 12-04-2021 Discharged Recurring [facility]-Physical Therapy Start: 11-06-2021 End: 11-06-2021 ambulatory MERON DE LEON Facility:[facility] Start: 10-20-2021 Telephone encounter Meron De Leon DO Work Phone: Orthopaedics Comment on above: Patient Question Start: 09-25-2021 End: 09-25-2021 ambulatory MERON DE LEON Facility:[facility] Start: 08-19-2021 End: 08-19-2021 ambulatory GUS HECK [facility] Start: 05-31-2017 Ambulatory [facility] Start: 05-06-2017 Ambulatory [facility] Start: 05-04-2017 Ambulatory [facility] Procedures Date Procedure Procedure Detail Performing Clinician Start: 03-03-2022 Dual energy X-ray absorptiometry Start: 12-25-2021 Arthrocentesis aspir &/inj major jt/bursa w/us Gus Mairano Heck DO Work Phone: Start: 12-25-2021 Arthrocentesis aspir &/inj major jt/bursa w/us Gusshelby Heck DO Work Phone: Plan of Treatment Date Care Activity Detail Author Start: 04-29-2022 Influenza vaccination INFLUENZA (Sea son Ended) [facility] Start: 2011 SHINGRIX VACCINE (1 of 2) SHINGRIX V ACCINE (1 of 2) [facility] Start: 2006 COLOGUARD (FIT-DNA) COLOGUARD (FIT-D NA) [facility] Start: 2006 Colonoscopy COLONOSCOPY [facility] Start: 2006 COLORECTAL CANCER SCREENING COLORECTAL CANCER SCREENING [facility] Start: [address] COLONOGRAPHY [facility] Start: 2006 DIABETES SCREEN DIABETES SCREEN [facility] Start: 2006 FECAL OCCULT BLOOD FECAL OCCULT BLOO D [facility] Start: 2006 LIPID SCREEN LIPID SCREEN [facility] Start: 2006 SIGMOIDOSCOPY SIGMOIDOSCOPY [facility] Start: 2001 Mammography MAMMOGRAM [facility] Start: 1991 HPV TESTING HPV TESTING [facility] Start: 1982 PAP TESTING PAP TESTING [facility] Start: 1980 Urine microalbumin profile DTAP,TDAP ,TD (1 - Tdap) [facility] Start: 1979 HEPATITIS C SCREENING HEPATITIS C SC REENING [facility] Start: 1979 HIV SCREENING HIV SCREENING [facility] Start: 1973 Adult depression scr eening assessment DEPRESSION SCREENING [facility] Start: 1966 COVID-19 VACCINE (#1) COVID-19 VACCI NE (#1) [facility] Start: 1966 COVID-19 VACCINE (1) COVID-19 VACCIN E (1) [facility] Immunizations Immunization Date Immunization Notes Care Provider Dorothy lux 07-07-2019 tetanus toxoid, redu ansley diphtheria toxoid, and acellular pertussis vaccine, adsorbed [facility] Payers Date Payer Category Payer Self-pay [id number] 2023 Unknown [id number] 2018 Unknown [facility] [id number] 2018-Present [phone] [address] [place] [address] [id number] 2018 Unknown [id number] 2017 Unknown [id number] 2017 Unknown [id number] Unknown Unknown [id number] Unknown [id number] Unknown [id number] Unknown [id number] Unknown [id number] Social History Date Type Detail Facility Start: 07-03-2021 End: 07-21-2022 Tobacco smoking status NHIS Unknown if ever smoked [facility] Start: 12-09-2020 Cigarettes [facility] Start: 1960 Sex Assigned At Female [facility] Start: 08-05-2021 Tobacco smoking stat us NHIS Smokes tobacco daily [facility] Start: 08-05-2021 Tobacco use and exposure Smokeless tobacco non-user [facility] Start: 09-25-2021 End: 12-25-2021 Alcohol intake Ex-drinker (finding) [facility] Start: 1960 Sex Assigned At Not on file [facility] Start: 12-15-2021 End: 12-25-2021 Exposure to SARS-CoV-2 (event) Not sure [facility] Medical Equipment Procedure Code Equipment Code Equipment Original Text Equipment Identifier Dates Arthroscopy, shoulder, with subacromial space decompression ANCHOR,5.5MM BIO CORK 2 FDA Start: 12-10-2020 Arthroscopy, shoulder, with subacromial space decompression ANCHOR,5.5MM BIO CORK 2 FDA Start: 12-10-2020 Arthroscopy, shoulder, with subacromial space decompression FIBERTAPE FDA Start: 12-10-2020 Arthroscopy, shoulder, with subacromial space decompression FIBERTAPE [id number] FDA Start: 12-10-2020 Arthroscopy, shoulder, with subacromial space decompression FIBERTAPE [id number] FDA Start: 12-10-2020 Arthroscopy, shoulder, with subacromial space decompression FIBERTAPE [id number] FDA Start: 12-10-2020 Arthroscopy, shoulder, with subacromial space decompression SWIVELOCK,4.75 DOUBLE LOCK FDA Start: 12-10-2020 Arthroscopy, shoulder, with subacromial space decompression SWIVELOCK,4.75 DOUBLE LOCK FDA Start: 12-10-2020 Arthroscopy, shoulder, with subacromial space decompression ANCHOR,5.5MM BIO CORK 2 FDA Start: 12-10-2020 Arthroscopy, shoulder, with subacromial space decompression ANCHOR,5.5MM BIO CORK 2 FDA Start: 12-10-2020 Arthroscopy, shoulder, with subacromial space decompression FIBERTAPE FDA Start: 12-10-2020 Arthroscopy, shoulder, with subacromial space decompression FIBERTAPE [id number] FDA Start: 12-10-2020 Arthroscopy, shoulder, with subacromial space decompression FIBERTAPE [id number] FDA Start: 12-10-2020 Arthroscopy, shoulder, with subacromial space decompression FIBERTAPE [id number] FDA Start: 12-10-2020 Arthroscopy, shoulder, with subacromial space decompression SWIVELOCK,4.75 DOUBLE LOCK FDA Start: 12-10-2020 Arthroscopy, shoulder, with subacromial space decompression SWIVELOCK,4.75 DOUBLE LOCK FDA Start: 12-10-2020 Arthroscopy, shoulder, with subacromial space decompression ANCHOR,5.5MM BIO CORK 2 FDA Start: 12-10-2020 Arthroscopy, shoulder, with subacromial space decompression ANCHOR,5.5MM BIO CORK 2 FDA Start: 12-10-2020 Arthroscopy, shoulder, with subacromial space decompression FIBERTAPE FDA Start: 12-10-2020 Arthroscopy, shoulder, with subacromial space decompression FIBERTAPE [id number] FDA Start: 12-10-2020 Arthroscopy, shoulder, with subacromial space decompression FIBERTAPE [id number] FDA Start: 12-10-2020 Arthroscopy, shoulder, with subacromial space decompression FIBERTAPE [id number] FDA Start: 12-10-2020 Arthroscopy, shoulder, with subacromial space decompression SWIVELOCK,4.75 DOUBLE LOCK FDA Start: 12-10-2020 Arthroscopy, shoulder, with subacromial space decompression SWIVELOCK,4.75 DOUBLE LOCK FDA Start: 12-10-2020 Clinical Notes 08-19-2021 to 11-16-2023 Patient InstructionsGus Heck DO - 12/25/2021 8:09 AM EDTTelephone Encounter [place] [facility] [place]20/[place] 11:39 AM ESTTelephone Encounter - Kiah Diaz - 10/20/2021 10:13 AM EST Note Date & Type Note Facility 11-16-2023 Procedure note [facility] 01-01-2022 Note HNO ID: [id number] Author: Meron De Leon DO Service: ? Author Type: Physician Type: Progress Notes Filed: 01/01/2022 12:43 PM Note Text: Follow Up Visit Chief Complaint Maggie Mason is a 61 year old female who presents today for follow up office visit. Patient presents with: Right Shoulder - Follow Up, Pain History of Present Illness PAIN EVALUATION 01/01/2022 1214 Pain Level: 1 Pain Location: Shoulder-Right Description: Aching;Dull;Sore Duration Amount of Time: ? ongoing Frequency: Intermittent Intervention/Comfort measure: Reposition;Relaxation;Medicatio n cortisone injection HPI: Maggie Mason is a 61 year old female for a follow up visit right shoulder pain. Had a recent shoulder injection by Dr. Heck which is giving a lot of relief and helping with ROM. Got approved more PT visits to help with ROM as well. Pain history is noted as above. Denies numbness, tingling, fever, chills or other constitutional symptoms. Is there any overall improvement in your condition? Yes, injection and PT Any new injury, since being seen last: No REVIEW OF SYMPTOMS: Patient did not have, and does not currently have, any weight loss, malaise, fever, chills, headache, chest pain, chest pressure, palpitations, cough, shortness of breath, orthopnea, paroxsymal nocturnal dyspnea, nausea, vomiting, diarrhea, constipation, melena, hematochezia, urinary difficulties, prolonged bleeding, easily bruising, heat or cold intolerance, new onset joint pain or swelling, new onset extremity weakness or numbness, new onset auditory or visual disturbances, lightheadedness, dizziness, partial loss of consciousness or full loss of consciousness. Current Outpatient Medications Medication Sig - QUEtiapine (SEROQUEL) 25 mg tablet Take 25 mg by mouth. No current facility-administered medications for this visit. Physical Exam Vitals: There were no vitals taken for this visit. Psych: Pleasant, good affect and mood General Appearance: Well appearing, alert, in no acute distress, well-hydrated, well nourished.. Skin: Skin color, texture, turgor normal, no suspicious rashes or lesions. Peripheral Pulses: Normal. Neurologic: Gait normal. Reflexes normal and symmetric. Sensation grossly intact.. Lymph Nodes: No cervical lymphadenopathy, No supraclavicular lymphadenopathy, No axillary lymphadenopathy. and No inguinal lymphadenopathy.. Respiratory: No recent pulmonary infection, hemoptysis, chronic cough, or shortness of breath at rest Rheumatologic: Joint deformities: Right shoulder pain Right Shoulder Exam Tenderness The patient is experiencing no tenderness. Range of Motion Active abduction: 130 abnormal Passive abduction: abnormal Extension: normal External rotation: abnormal Forward flexion: normal Internal rotation 0 degrees: normal Internal rotation 90 degrees: normal Muscle Strength Abduction: 5/5 Internal rotation: 5/5 External rotation: 5/5 Supraspinatus: 5/5 Subscapularis: 5/5 Biceps: 5/5 Tests Apprehension: negative Thapa test: negative Cross arm: negative Impingement: negative Other Erythema: absent Sensation: normal Pulse: present Comments: Med,uln,rad nerves intact Better ROM Left Shoulder Exam Left shoulder exam is normal. Tenderness The patient is experiencing no tenderness. Range of Motion Active abduction: normal Passive abduction: normal Extension: normal External rotation: normal Forward flexion: normal Internal rotation 0 degrees: normal Internal rotation 90 degrees: normal Muscle Strength Abduction: 5/5 Internal rotation: 5/5 External rotation: 5/5 Supraspinatus: 5/5 Subscapularis: 5/5 Biceps: 5/5 Tests Apprehension: negative Thapa test: negative Cross arm: negative Impingement: negative Other Erythema: absent Sensation: normal Pulse: present Assessment and Plan Radiographs: No imaging to review. Impression: Encounter Diagnosis ICD-10-CM 1. Adhesive capsulitis of right shoulder M75.01 starting PT Tuesday Happy with injection right shoulder Much improved, will follow peripherally If has issues, will call- Take otc nsaids on as needed basis Today, in detail, through a thorough evaluation, we discussed possible etiologies of pain and our plans for further diagnostic and therapeutic interventions. We discussed strategies for decreasing pain and improving strength, stability and motion. Patient's questions were answered in detailed. Patient verbalizes understanding and agrees with the treatment plan as discussed. [facility] 12-25-2021 Note HNO ID: [id number] Author: Gus Heck, DO Service: ? Author Type: Physician Type: Progress Notes Filed: 12/25/2021 10:47 AM Note Text: [facility] DEPARTMENT OF ORTHOPAEDIC SURGERY OFFICE VISIT DOCUMENTATION NOTE ASSESSMENT AND PLAN DIAGNOSIS: (M75.01) Adhesive capsulitis of right shoulder (primary encounter diagnosis) Today, in detail, through a thorough evaluation, we discussed possible etiologies of pain and our plans for further diagnostic and therapeutic interventions. We discussed strategies for decreasing pain and improving strength, stability and motion. Patient's questions were answered in detailed. Patient verbalizes understanding and agrees with the treatment plan as discussed. - Pt had been doing well with PT but she no longer has coverage for this. I would greatly recommend that we continue with physical therapy to avoid any relapse in progress made, further pain, limiting motion and loss of ability to return back to full duty. - Had significant improvement with previous injection 4 months ago. Risks, benefits, and indications for corticosteroid injections discussed. Injection performed as detailed in the procedure note below. A C9 has been submitted to request approval for physical therapy. The patient has voiced understanding that the [place] [employer] ([facility]) will need to first make judgement upon, and approve, these additional treatments, before we can proceed with scheduling. The patient has voiced understanding of this process and they have been given contact information on how to inquire about the progress of this claim. Haydee Morrison MD Primary Care Sports Medicine Fellow PGY-4 In addition to the comprehensive evaluation as outlined above and as a separate element to the visit today, we have made the determination to proceed with an injection to aid in the treatment of the patient's condition. We discussed risks, benefits, alternatives and expected outcomes of this injection in detail and the patient agreed to proceed. The procedure was performed as detailed below. Large Joint Arthro/Inj: R glenohumeral Informed Consent Consent Obtained: Verbal [place] Protocol A moment to CARE was completed. SIGN IN Personnel directly involved with the procedure wore the appropriate PPE. Patient/Surrogate Stated/Verified: Patient name, Date of , Relevant allergies and Intended procedure TIME OUT Intended patient and procedure match the source document(s). Consent documented and matches the intended procedure. Relevant labs, photos, and/or imaging studies have been reviewed. Correct side/site marked and visible. Medications required for procedure verified. 12/25/2021 10:47 AM The procedure site was prepped in the usual sterile fashion. Site: R glenohumeral Details:Musculoskeletal ultrasound was utilized to successfully localize placement of the injection needle at the appropriate site. Ultrasound images demonstrating local vasculature and demonstrating injection of solution were saved. Medications: 40 mg triamcinolone acetonide 40 mg/mL; 5 mL NaCl (PF) 0.9% Anesthetics: 3 mL ropivacaine (PF) 5 mg/mL (0.5 %) Outcome: Tolerated well, no immediate complications Post-injection instructions were reviewed with the patient and the patient voiced understanding of these instructions. SIGN OUT Post-procedure follow-up management communicated and Plan of Care Visit completed when applicable TEACHING PHYSICIAN STATEMENT: I personally saw and evaluated the patient today. I personally obtained the caldwell and critical portions of the history and physical exam. I reviewed the resident's documentation and discussed the patient with the resident. I agree with the resident's medical decision-making as documented. Gus Heck D.O. Sports Medicine and Medical Orthopaedics [facility] CHIEF COMPLAINT / REASON FOR VISIT Maggie Mason is a 61 year old female who presents today for a follow-up evaluation of following complaint: Patient presents with: Right Shoulder - Established Patient HISTORY OF PRESENT ILLNESS (HPI) PAIN EVALUATION 12/25/2021 0809 Pain Level: 1 Pain Location: Shoulder-Right Description: Aching Duration Amount of Time: 4 Duration Units: Months Frequency: Intermittent Intervention/Comfort measure: Medication Has there been any overall improvement in your condition? Yes, Any new injury, since being seen last? No Pt was last seen by Dr. Heck 08/19 with [facility] to with significant improvement for ~8-10 weeks. She had been going to PT with improvement until 3 weeks ago when it was denied. Does have improvement in motion. Review of Systems Constitutional: Any recent fevers? No Gastrointestinal: Any abdominal discomfort? No Integumentary: Any recent skin changes or rashes? No Maggie Mason is a 61 year old fem (more content not included)... [facility] 12-25-2021 Instructions Gus Heck DO - 12/25/2021 8:28 AM EDT I would greatly recommend that we continue with physical therapy to avoid any relapse in progress made, further pain, limiting motion and loss of ability to return back to full duty. Gus Heck DO documented in this encounter [facility] 12-25-2021 History of Presen t illness Narrative Associated Order(s): Large Joint Arthro/Inj: R glenohumeral Post-Procedure Diagnose(s): Adhesive capsulitis of right shoulder [facility] DEPARTMENT OF ORTHOPAEDIC SURGERY OFFICE VISIT DOCUMENTATION NOTE ASSESSMENT AND PLAN DIAGNOSIS: (M75.01) Adhesive capsulitis of right shoulder (primary encounter diagnosis) Today, in detail, through a thorough evaluation, we discussed possible etiologies of pain and our plans for further diagnostic and therapeutic interventions. We discussed strategies for decreasing pain and improving strength, stability and motion. Patient's questions were answered in detailed. Patient verbalizes understanding and agrees with the treatment plan as discussed. - Pt had been doing well with PT but she no longer has coverage for this. I would greatly recommend that we continue with physical therapy to avoid any relapse in progress made, further pain, limiting motion and loss of ability to return back to full duty. - Had significant improvement with previous injection 4 months ago. Risks, benefits, and indications for corticosteroid injections discussed. Injection performed as detailed in the procedure note below. A C9 has been submitted to request approval for physical therapy. The patient has voiced understanding that the [place] [employer] Workers[employer] ([employer]) will need to first make judgement upon, and approve, these additional treatments, before we can proceed with scheduling. The patient has voiced understanding of this process and they have been given contact information on how to inquire about the progress of this claim. Haydee Morrison MD Primary Care Sports Medicine Fellow PGY-4 In addition to the comprehensive evaluation as outlined above and as a separate element to the visit today, we have made the determination to proceed with an injection to aid in the treatment of the patient's condition. We discussed risks, benefits, alternatives and expected outcomes of this injection in detail and the patient agreed to proceed. The procedure was performed as detailed below. Large Joint Arthro/Inj: R glenohumeral Informed Consent Consent Obtained: Verbal [place] Protocol A moment to CARE was completed. SIGN IN Personnel directly involved with the procedure wore the appropriate PPE. Patient/Surrogate Stated/Verified: Patient name, Date of , Relevant allergies and Intended procedure TIME OUT Intended patient and procedure match the source document(s). Consent documented and matches the intended procedure. Relevant labs, photos, and/or imaging studies have been reviewed. Correct side/site marked and visible. Medications required for procedure verified. 12/25/2021 10:47 AM The procedure site was prepped in the usual sterile fashion. Site: R glenohumeral Details:Musculoskeletal ultrasound was utilized to successfully localize placement of the injection needle at the appropriate site. Ultrasound images demonstrating local vasculature and demonstrating injection of solution were saved. Medications: 40 mg triamcinolone acetonide 40 mg/mL; 5 mL NaCl (PF) 0.9% Anesthetics: 3 mL ropivacaine (PF) 5 mg/mL (0.5 %) Outcome: Tolerated well, no immediate complications Post-injection instructions were reviewed with the patient and the patient voiced understanding of these instructions. SIGN OUT Post-procedure follow-up management communicated and Plan of Care Visit completed when applicable TEACHING PHYSICIAN STATEMENT: I personally saw and evaluated the patient today. I personally obtained the caldwell and critical portions of the history and physical exam. I reviewed the resident's documentation and discussed the patient with the resident. I agree with the resident's medical decision-making as documented. Gus Heck D.O. Sports Medicine and Medical Orthopaedics [facility] CHIEF COMPLAINT / REASON FOR VISIT Maggie Mason is a 61 year old female who presents today for a follow-up evaluation of following complaint: Patient presents with: Right Shoulder - Established Patient HISTORY OF PRESENT ILLNESS (HPI) PAIN EVALUATION 12/25/2021 0809 Pain Level: 1 Pain Location: Shoulder-Right Description: Aching Duration Amount of Time: 4 Duration Units: Months Frequency: Intermittent Intervention/Comfort measure: Medication Has there been any overall improvement in your condition? Yes, Any new injury, since being seen last? No Pt was last seen by Dr. Heck 08/19 with [facility] to with significant improvement for ~8-10 weeks. She had been going to PT with improvement until 3 weeks ago when it was denied. Does have improvement in motion. Review of Systems Constitutional: Any recent fevers? No Gastrointestinal: Any abdominal discomfort? No Integumentary: Any recent skin changes or rashes? No Maggie Mason is a 61 year old female with the presenting complaint of Established Patient of the Right Shoulder. Maggie reports a current pain level of 1 (Shoulder-Right). She describes the pain as Aching. The pain is Intermittent, and has lasted for 4 Months. Interventions tried include Medication. She was last seen in orthopaedic clinic for her shoulder on 11/06/2021 with Meron De Leon. Most recent shoulder imaging was completed on 08/19/2021 (US SHOULDER-INJECTION RT (POC) JORGE USE ONLY) . In the past (based on all medication history on file), Maggie has tried the following anti-inflammatory medications (not necessarily for this reason for visit): meloxicam. EXAMINATION Vitals: There were no vitals taken for this visit. Right Shoulder Inspection: normal cervical posture, shoulder alignment, and no joint deformities or swelling noted Shoulder Range of Motion: Flexion: decreased at 100-145 degrees Abduction: decreased at 120-90 degrees External rotation: 30 Apley scratch test (internal rotation): Right arm: patient able to reach to T12 Left arm: patient able to reach to T8 External rotation @90: 20 Internal rotation @90: 10 Clyde Test / Empty Can Test (supraspinatus): normal examination with no pain or weakness elicited Resisted lateral rotation test (infraspinatus): normal examination with no pain or weakness elicited Belly press test (subscapualris): normal examination with no pain or weakness elicited documented in this encounter [facility] 11-06-2021 Note HNO ID: [id number] Author: Meron De Leon DO Service: ? Author Type: Physician Type: Progress Notes Filed: 11/07/2021 7:53 AM Note Text: Follow Up Visit Chief Complaint Maggie Mason is a 61 year old female who presents today for follow up office visit. Patient presents with: Right Shoulder - Follow Up, Pain History of Present Illness PAIN EVALUATION 11/06/2021 1206 Pain Level: 5 Pain Location: Shoulder-Right Description: Aching;Dull;Stiffness Duration Amount of Time: ? Ongoing Frequency: Continuous Intervention/Comfort measure: Reposition;Relaxation;Cold;Medi cation;Other: See comment physical therapy HPI: Maggie Mason is a 61 year old female for a follow up visit right shoulder pain. Just got approved last week for physical therapy, injection now has no effect on shoulder. Pain history is noted as above. Denies numbness, tingling, fever, chills or other constitutional symptoms. Has not done PT as not approved. Is there any overall improvement in your condition? No Any new injury, since being seen last: No REVIEW OF SYMPTOMS: Patient did not have, and does not currently have, any weight loss, malaise, fever, chills, headache, chest pain, chest pressure, palpitations, cough, shortness of breath, orthopnea, paroxsymal nocturnal dyspnea, nausea, vomiting, diarrhea, constipation, melena, hematochezia, urinary difficulties, prolonged bleeding, easily bruising, heat or cold intolerance, new onset joint pain or swelling, new onset extremity weakness or numbness, new onset auditory or visual disturbances, lightheadedness, dizziness, partial loss of consciousness or full loss of consciousness. Current Outpatient Medications Medication Sig - QUEtiapine (SEROQUEL) 25 mg tablet Take 25 mg by mouth. No current facility-administered medications for this visit. Physical Exam Vitals: There were no vitals taken for this visit. Psych: Pleasant, good affect and mood General Appearance: Well appearing, alert, in no acute distress, well-hydrated, well nourished.. Skin: Skin color, texture, turgor normal, no suspicious rashes or lesions. Peripheral Pulses: Normal. Neurologic: Gait normal. Reflexes normal and symmetric. Sensation grossly intact.. Lymph Nodes: No cervical lymphadenopathy, No supraclavicular lymphadenopathy, No axillary lymphadenopathy. and No inguinal lymphadenopathy.. Respiratory: No recent pulmonary infection, hemoptysis, chronic cough, or shortness of breath at rest Rheumatologic: Joint deformities: Right shoulder pain Right Shoulder Exam Tenderness The patient is experiencing tenderness in the biceps tendon. Range of Motion Active abduction: abnormal Passive abduction: abnormal Extension: abnormal External rotation: abnormal Forward flexion: abnormal Internal rotation 0 degrees: normal Internal rotation 90 degrees: abnormal Muscle Strength Abduction: 5/5 Internal rotation: 5/5 External rotation: 4/5 Supraspinatus: 4/5 Subscapularis: 4/5 Biceps: 5/5 Tests Apprehension: negative Thapa test: negative Cross arm: negative Impingement: negative Other Erythema: absent Sensation: normal Pulse: present Comments: Intact but weakness in er/ir Left Shoulder Exam Left shoulder exam is normal. Tenderness The patient is experiencing no tenderness. Range of Motion Active abduction: normal Passive abduction: normal Extension: normal External rotation: normal Forward flexion: normal Internal rotation 0 degrees: normal Internal rotation 90 degrees: normal Muscle Strength Abduction: 5/5 Internal rotation: 5/5 External rotation: 5/5 Supraspinatus: 5/5 Subscapularis: 5/5 Biceps: 5/5 Tests Apprehension: negative Thapa test: negative Cross arm: negative Impingement: negative Other Erythema: absent Sensation: normal Pulse: present Assessment and Plan Radiographs: No imaging to review. Impression: Encounter Diagnosis ICD-10-CM 1. Adhesive capsulitis of right shoulder M75.01 Was at 161 but has not done pt recently Better, still having aching and stiffness and weakness but interested in another dr heck injection to see if can improve final ROM edilbertotttobias rom still needs to work on strength, Starting PT on Tuesday Today, in detail, through a thorough evaluation, we discussed possible etiologies of pain and our plans for further diagnostic and therapeutic interventions. We discussed strategies for decreasing pain and improving strength, stability and motion. Patient's questions were answered in detailed. Patient verbalizes understanding and agrees with the treatment plan as discussed. [facility] 10-20-2021 Miscellaneous Notes Please advise. Patient calling in wanting to know status of physical therapy being approved by [facility]. I informed her it was still pending, but wasn't sure if it was requested. Per pillowcase maker didn't have anything or see any requests. Please advise, Thanks! documented in this encounter [facility] 09-25-2021 Note HNO ID: [id number] Author: Meron De Leon, DO Service: ? Author Type: Physician Type: Progress Notes Filed: 09/25/2021 8:59 AM Note Text: Follow Up Visit Chief Complaint Maggie Mason is a 61 year old female who presents today for follow up office visit. Patient presents with: Right Shoulder - Follow Up, Pain History of Present Illness PAIN EVALUATION 09/25/2021 0845 Pain Level: 1 Pain Location: Shoulder-Right Description: Sore;Aching Duration Amount of Time: ? ongoing Frequency: Continuous Intervention/Comfort measure: Reposition;Relaxation;Cold;Medi cation HPI: Maggie Mason is a 61 year old female for a follow up visit right shoulder pain. Had injection with Dr. Heck 08-19-21. Gave relief. Pain history is noted as above. Denies calf pain, numbness, tingling, fever, chills or other constitutional symptoms. This is [facility]. Is there any overall improvement in your condition? Yes, increased ROM Any new injury, since being seen last: No REVIEW OF SYMPTOMS: Patient did not have, and does not currently have, any weight loss, malaise, fever, chills, headache, chest pain, chest pressure, palpitations, cough, shortness of breath, orthopnea, paroxsymal nocturnal dyspnea, nausea, vomiting, diarrhea, constipation, melena, hematochezia, urinary difficulties, prolonged bleeding, easily bruising, heat or cold intolerance, new onset joint pain or swelling, new onset extremity weakness or numbness, new onset auditory or visual disturbances, lightheadedness, dizziness, partial loss of consciousness or full loss of consciousness. Current Outpatient Medications Medication Sig - QUEtiapine (SEROQUEL) 25 mg tablet Take 25 mg by mouth. No current facility-administered medications for this visit. Physical Exam Vitals: There were no vitals taken for this visit. Psych: Pleasant, good affect and mood General Appearance: Well appearing, alert, in no acute distress, well-hydrated, well nourished.. Skin: Skin color, texture, turgor normal, no suspicious rashes or lesions. Peripheral Pulses: Normal. Neurologic: Gait normal. Reflexes normal and symmetric. Sensation grossly intact.. Lymph Nodes: No cervical lymphadenopathy, No supraclavicular lymphadenopathy, No axillary lymphadenopathy. and No inguinal lymphadenopathy.. Respiratory: No recent pulmonary infection, hemoptysis, chronic cough, or shortness of breath at rest Rheumatologic: Joint deformities: Right shoulder pain Right Shoulder Exam Tenderness The patient is experiencing tenderness in the biceps tendon. Range of Motion Active abduction: abnormal Passive abduction: abnormal Extension: abnormal External rotation: abnormal Forward flexion: abnormal Internal rotation 0 degrees: normal Internal rotation 90 degrees: normal Muscle Strength Abduction: 5/5 Internal rotation: 5/5 External rotation: 5/5 Supraspinatus: 5/5 Subscapularis: 5/5 Biceps: 5/5 Tests Apprehension: negative Thapa test: negative Cross arm: negative Impingement: negative Other Erythema: absent Sensation: normal Pulse: present Comments: Improved immensely 130 abd 30 er L3 IR Left Shoulder Exam Left shoulder exam is normal. Tenderness The patient is experiencing no tenderness. Range of Motion Active abduction: normal Passive abduction: normal Extension: normal External rotation: normal Forward flexion: normal Internal rotation 0 degrees: normal Internal rotation 90 degrees: normal Muscle Strength Abduction: 5/5 Internal rotation: 5/5 External rotation: 5/5 Supraspinatus: 5/5 Subscapularis: 5/5 Biceps: 5/5 Tests Apprehension: negative Thapa test: negative Cross arm: negative Impingement: negative Other Erythema: absent Sensation: normal Pulse: present Assessment and Plan Radiographs: No imaging to review. Impression: Encounter Diagnosis ICD-10-CM 1. Adhesive capsulitis of right shoulder M75.01 CONSULT TO PHYSICAL THERAPY Follow up in 6 weeks Cont PT, meloxicam Today, in detail, through a thorough evaluation, we discussed possible etiologies of pain and our plans for further diagnostic and therapeutic interventions. We discussed strategies for decreasing pain and improving strength, stability and motion. Patient's questions were answered in detailed. Patient verbalizes understanding and agrees with the treatment plan as discussed. [facility] 08-19-2021 Note HNO ID: [id number] Author: Gus Heck, DO Service: ? Author Type: Physician Type: Progress Notes Filed: 08/19/2021 2:32 PM Note Text: OFFICE VISIT DOCUMENTATION NOTE Sports Medicine and Interventional Orthopaedics [facility] CHIEF COMPLAINT / REASON FOR VISIT Maggie Mason is here today at request of Dr.Anne Kimberli De Leon specifically for consultation of my opinion in regards to the chief complaint listed below. Correspondence will be shared today via the [employer] electronic health record or through regular mail, where applicable. Maggie Mason is a 61 year old female who presents today for a new evaluation of following complaint: Patient presents with: Right Shoulder - New, Pain HISTORY OF PRESENT ILLNESS (HPI) PAIN EVALUATION 08/19/2021 1359 Pain Level: 2 Pain Location: Shoulder-Right Description: Aching Duration Amount of Time: 2.5 Duration Units: Years Frequency: Intermittent Intervention/Comfort measure: Medication;Cold;Heat Maggie Mason is a 61 year old female with the presenting complaint of New and Pain of the Right Shoulder. Maggie reports a current pain level of 2 (Shoulder-Right). She describes the pain as Aching. The pain is Intermittent, and has lasted for 2.5 Years. Interventions tried include Medication,Cold,Heat. She is currently taking meloxicam. She was last seen in orthopaedic clinic for her shoulder on 08/05/2021 with Meron De Leon. No shoulder imaging is available at this time. In the past (based on all medication history on file), Maggie has tried the following anti-inflammatory medications (not necessarily for this reason for visit): meloxicam. Brief overview: right shoulder pain for 2.5 years. Carrying pans Location of pain: front of the shoulder Does anything make it worse?: Yes, using it Does anything make it better?: Yes, rest Any numbness or tingling? No Any popping, locking, or clicking? No Previous Treatments Ice: Yes Heat: Yes Brace: No NSAIDs: Yes, Ibuprofen Injections: Yes, steroid- 1 year ago- did help Surgeries: Yes, 11/2020 Physical Therapy: Yes Review of Systems Constitutional: Any recent fevers? No Gastrointestinal: Any abdominal discomfort? No Integumentary: Any recent skin changes or rashes? No Endocrine: Any diagnosis of diabetes? No EXAMINATION Vitals: There were no vitals taken for this visit. Ortho Exam Musculoskeletal examination today was very difficult to complete secondary to pain. Patient was complaining of significant pain, despite several attempts at gentle physical examination. Limited range of motion and pain did not allow any further attempts at a more accurate examination for today's visit. ASSESSMENT AND PLAN DIAGNOSIS: (M75.01) Adhesive capsulitis of right shoulder (primary encounter diagnosis) Today, in detail, through a thorough evaluation, we discussed possible etiologies of pain and our plans for further diagnostic and therapeutic interventions. We discussed strategies for decreasing pain and improving strength, stability and motion. Patient's questions were answered in detailed. Patient verbalizes understanding and agrees with the treatment plan as discussed. In addition to the comprehensive evaluation as outlined above and as a separate element to the visit today, we have made the determination to proceed with an injection to aid in the treatment of the patient's condition. We discussed risks, benefits, alternatives and expected outcomes of this injection in detail and the patient agreed to proceed. The procedure was performed as detailed below. Procedures Gus Heck DO Sports Medicine AND Interventional Orthopaedics Department of Orthopaedic Surgery [facility] Evaluation note No assessment inform ation available [facility] Work Phone: Evaluation note Diagnosis Adhesive capsulitis of right shoulder- Primary Adhesive capsulitis of shoulder [facility] Diagnosis Adhesive capsulitis of right shoulder- Primary Adhesive capsulitis of shoulder documented in this encounter [facility] Summary Purpose Family History No Family History Records FoundNo Family History Records FoundNo Family History Records FoundNo Family History Records FoundNo Family History Records Found Advance Directives No Advanced Directives Records Found Advance Directive Response Recorded Date/ Time Living Will Yes May 11, 2021 1:29pm Power of Ingredient Scaler Helper Yes April 1:29pm Chief Complaint and Reason for Visit Chief Complaint R RTC/RX HERE Chief Complaint RT SHOULDER /DR TO F AX R RTC/RX HERE POST RAVINDRA Chief Complaint Anesthesia of skin Anesthesia of skin Medications Administered Section Inactive Administered Medications - up to 3 most recent administrations Medication Order MAR Action Action Date Dose Rate Site NaCl (PF) 0.9% 5 mL injection 5 mL, Injection - FOR ORTHO USE ONLY, ONE TIME INJECTION, 1 dose, Starting on Tue12/25/21 at 1047, Until Tue12/25/21 at 1047 Given 12/25/2021 10:47 AM EDT 5 mL ropivacaine (PF) 5 mg/mL (0.5 %) 3 mL injection (NAROPIN) 3 mL, Injection - FOR ORTHO USE ONLY, ONE TIME INJECTION, 1 dose, Starting on Tue12/25/21 at 1047, Until Tue12/25/21 at 1047 Given 12/25/2021 10:47 AM EDT 3 mL triamcinolone acetonide 40 mg injection (KeNALog 40) 40 mg, Injection - FOR ORTHO USE ONLY, ONE TIME INJECTION, 1 dose, Starting on Tue12/25/21 at 1047, Until Tue12/25/21 at 1047 Given 12/25/2021 10:47 AM EDT 40 mg Reason for Referral Specialty Diagnoses / Procedures Referred By Jessica simpson Referred To Contact [facility] Diagnoses Adhesive capsulitis of right shoulder Procedures CONSULT TO PHYSICAL THERAPY PHYSICAL THERAPY EVALUATION HIGH COMPLEX [address] Gus Heck, [place] [address] [facility] [address] [address] Referral ID Status Reason Start Date Expiration Date Visits Requested Visits Authorized [id number] Pending Review Auto-Generat ed Referral 01/08/2022 01/08/2023 1 1 Additional Source Comments INFORMATION SOURCE (unrecogn ized section and content) DATE CREATED AUTHOR 02/21/2018 [facility] DATE CREATED AUTHOR AUTHOR'S ORGANIZ ATION 02/22/2018 [facility] DATE CREATED AUTHOR AUTHOR'S ORGANIZ ATION 08/05/2022 [facility] DATE CREATED AUTHOR AUTHOR'S ORGANIZ ATION 08/20/2022 [facility] DATE CREATED AUTHOR AUTHOR'S ORGANIZ ATION 10/26/2024 [facility] Goals (unrecognized section and content) Goals may be documented in a n alternate sectionGoals may be documented in an alternate sectionGoals may be documented in an alternate section Source Comments (unrecognize d section and content) In the event this informatio n is protected by the Federal Confidentiality of Alcohol and Drug Abuse Patient Records regulations: The Federal rules restrict any use of the information to criminally investigate or prosecute any alcohol or drug abuse patient.[facility] the event this information is protected by the Federal Confidentiality of Alcohol and Drug Abuse Patient Records regulations: The Federal rules restrict any use of the information to criminally investigate or prosecute any alcohol or drug abuse patient.[facility] the event this information is protected by the Federal Confidentiality of Alcohol and Drug Abuse Patient Records regulations: The Federal rules restrict any use of the information to criminally investigate or prosecute any alcohol or drug abuse patient.[facility] Reason for Visit (unrecogniz ed section and content) Reason Comments Established Patient Specialty Diagnoses / Procedures Referred By Contac t Referred To Contact Orthopedics / ORTHOPAEDIC SURGERY Diagnoses Right shoulder Procedures ARTHROCENTESIS ASPIR&/INJ MAJOR JT/BURSA W/US JORGE INJECT 1 Meron De Leon DO [address] [place] [address] [place] [address] Referral ID Status Reason Start Date Expiration Date Visits Re quested Visits Authorized [id number] Closed 11/13/2021 01/13/2022 1 1 Reason Comments Patient Question Care Teams (unrecognized sec tion and content) Team Status: Active Member Role Status Dates No Primary Care Physician Family Provider Active Vicenta Ragsdale , DO Primary Care Provider Active Team Status: Active Member Role Status Dates Vicenta Ragsdale , Primary Care Provi joes, Referring Provider, Other Provider Active Dr. Sana Dahl MD Attending Provider Active Team Status: Inactive Member Role Status Dates Vicenta Ragsdale , DO Primary Care Provi jose, Attending Provider, Referring Provider Active FOR RECORDS PERTAINING TO PATIENTS WHO ARE OR HAVE BEEN ENROLLED IN A CHEMICAL DEPENDENCY/SUBSTANCEABUSE PROGRAM, SOME INFORMATION MAY BE OMITTED. This clinical summary was aggregated from multiple sources. Caution should be exercised in using it in the provision of clinical care. This summary normalizes information from multiple sources, and as a consequence, information in this document may materially change the coding, format and clinical context of patient data. In addition, data may be omitted in some cases. CLINICAL DECISIONS SHOULD BE BASED ON THE PRIMARY CLINICAL RECORDS. [facility] provides no warranty or guarantee of the accuracy or completeness of information in this document.
== END | disposition home or self-care (01) ==
LOC: MFPLAB 11:19
PROVIDERS: PCP Family Medicine; Visit Provider Family Medicine
DX: E03.8 Other specified hypothyroidism (principal); R73.09 Other abnormal glucose; E55.9 Vitamin D deficiency, unspecified
CPT/HCPCS: 36415; 82306; 83036; 84443